=== PATIENT | female | born 1945 | race Caucasian/White ===

== ENCOUNTER → 2017-01-12 | Outpatient (CLI) | payer BC ==
[~2017-01-12] MED LIST: ATOR-24 PO; CEPH500C PO; FIBER CAPS PO; FLUO40CA8 PO; FLX10 PO; IBUP200C14 PO; LEVO100T7 PO; LOSA100T2 PO; MULT-506 PO; OMEP40CA PO; VITAMIN D PO
--- NOTE | 2017-01-12 13:35 | MAMMOGRAPHY REPORT ---
BILATERAL DIGITAL SCREENING MAMMOGRAM WITH CAD: 01/12/2017 CLINICAL HISTORY: Routine screening. Patient has no complaints. TECHNIQUE: Current study was also evaluated with a Computer Aided Detection (CAD) system. Bilatera l CC and MLO views were obtained. COMPARISON: Comparison is made to exams dated: 01/07/2016 mammogram, 08/24/2013 mammogram, 01/06/2015 mammogram, 08/23/2012 mammogram, 09/06/2011 mammogram, and 08/18/2010 mammogram - [facility]. BREAST COMPOSITION: There are scattered areas of fibroglandular density in both breasts. FINDINGS: No suspicious masses, calcifications, or areas of architectural distortion are noted in e ither breast. There has been no significant interval change compared to prior exams. There are stab le postsurgical changes from bilateral reduction mammoplasty. Coarse benign dystrophic calcificatio ns are again noted within the right upper outer quadrant. IMPRESSION: ACR BI-RADS CATEGORY 2: BENIGN There is no mammographic evidence of malignancy. A 1 year screening mammogram is recommended. The p atient will receive written notification of the results. Approximately 10% of breast cancers are not detected with mammography. A negative mammographic repor t should not delay biopsy if a clinically suggestive mass is present. Crystal Chaudhari M.D. ah/:01/12/2017 11:49:41 Lab Engineer: Juvencio GUTIERREZ(R)(M), [facility] letter sent: Normal 1/2 BI-RADS Code: ACR BI-RADS Category 2: Benign
== END | disposition home or self-care (01) ==
LOC: C.MAMM 11:09
PROVIDERS: ATTEND Obstetrics & Gynecology
DX: Z12.31 Encounter for screening mammogram for malignant neoplasm of breast (principal)

== ENCOUNTER → 2017-02-11 | Outpatient (CLI) | payer BC ==
[2017-02-11 16:37] LABS: BASO % 0.5 %; BASO ABS # 0.04 K/uL (0-0.2); COMPLETE YES; EOS % 2.5 %; HEMATOCRIT 43.8 % (37-47); IG% 0.5 %; LYMPH ABS # 2.03 K/uL (1.2-3.4); MEAN CELL VOLUME 94.6 fL (80-100); MEAN CORPUSCULAR HEMOGLOBIN 31.3 pg (25-34); MEAN CORPUSCULAR HGB CONC 33.1 g/dl (32-36); MEAN PLATELET VOLUME 10.4 fL (7.4-10.4); NEUT % 64.5 %; PLATELET COUNT 304 K/uL (130-400); RED BLOOD COUNT 4.63 M/uL (4.2-5.4); WHITE BLOOD COUNT 8.82 K/uL (4.8-10.8)
[2017-02-11 16:44] LABS: BLOOD UREA NITROGEN 19 mg/dl (7-18); BUN/CREATININE RATIO 22.4 (10-20); CALCIUM 9.4 mg/dl (8.5-10.1); CARBON DIOXIDE 30 mmol/L (21-32); CHLORIDE 104 mmol/L (98-107); CREATININE 0.83 mg/dl (0.60-1.20); GLUCOSE 102 mg/dl (70-99); POTASSIUM 3.6 mmol/L (3.5-5.1); SODIUM 142 mmol/L (136-145)
[2017-02-12 05:39] LABS: ESTIMATED AVERAGE GLUCOSE 123 mg/dl; HA1C FLAG Normal (Normal)
--- NOTE | 2017-02-17 09:12 | CODING QUERY MEDICAL NECESSITY ---
SUPPORTING DIAGNOSIS NEEDED A supporting diagnosis is required for the test/procedure performed on this patient in order for us to be reimbursed by the patient's insurance. Please provide a supporting diagnosis for the following test/procedure listed below next to the test name along with your signature. *If there is no additional diagnosis for this patient that would support the following test/procedure please document that below next to the test/procedure. Test(s)/Procedure(s) that require a supporting diagnosis: DOS 02/11 * Hba1c DIAGNOSIS: Provider Signature: Date: Thank you Yoselin De Oliveira Health Information Management Once completed, please kindly fax back to [phone] For questions please call [phone]
== END | disposition home or self-care (01) ==
LOC: C.LABBC 12:29
PROVIDERS: ATTEND Internal Medicine Geriatric Medicine
DX: I10 Essential (primary) hypertension (principal); E03.9 Hypothyroidism, unspecified; G47.33 Obstructive sleep apnea (adult) (pediatric); E55.9 Vitamin D deficiency, unspecified; Z68.41 Body mass index [BMI] 40.0-44.9, adult

== ENCOUNTER → 2017-02-14 | Outpatient (CLI) | payer BC ==
--- NOTE | 2017-02-14 09:45 | DIAGNOSTIC IMAGING REPORT ---
CERVICAL SPINE 2 OR 3 VIEWS CLINICAL HISTORY: Neck pain. No known injury. COMPARISON STUDY: MRI of the cervical spine March 11, 2014. FINDINGS: Reversal of the normal cervical lordosis is again noted. There is slight retrolisthesis of C5 on C6. This is unchanged. There is slight anterolisthesis of C4 on C5. Marked disc space narrowing with osteophytosis is noted at C5-C6 and C6-C7. No fracture or suspicious lesion is present. There is moderate to severe multilevel facet arthrosis. IMPRESSION: 1. Moderate to severe multilevel degenerative disc disease and facet arthrosis, most pronounced at C5-C6 and C6-C7. 2. Reversal of the normal cervical lordosis. Unchanged alignment of the cervical spine. 3. No fracture identified. 4. Degenerative changes at the C1-C2 articulation. Electronically signed by: Garret Corey M.D. 02/14/2017 9:43 AM Dictated Date/Time: 02/14/2017 9:42 AM
== END | disposition home or self-care (01) ==
LOC: C.RADBC 09:13
PROVIDERS: ATTEND Internal Medicine Geriatric Medicine
DX: M54.2 Cervicalgia (principal); M50.322 Other cervical disc degeneration at C5-C6 level; M50.323 Other cervical disc degeneration at C6-C7 level; M53.82 Other specified dorsopathies, cervical region; M47.812 Spondylosis without myelopathy or radiculopathy, cervical region

== ENCOUNTER → 2017-09-28 | Outpatient (CLI) | payer BC | END | disposition home or self-care (01) | LOC: C.LABSPEC 17:03 | PROVIDERS: ATTEND Urology | DX: N39.41 Urge incontinence (principal); R35.0 Frequency of micturition ==

== ENCOUNTER → 2017-11-28 | Outpatient (CLI) | payer BC | END | disposition home or self-care (01) | LOC: C.LAB 16:46 | PROVIDERS: ATTEND Nurse Practitioner Adult Health | DX: R39.15 Urgency of urination (principal); R35.0 Frequency of micturition; N39.0 Urinary tract infection, site not specified ==

== ENCOUNTER 2018-02-07 15:18 | Emergency (ER) | payer BC ==
[~2018-02-07] VITALS: Ht 167.6 cm; Wt 115.0 kg
[2018-02-07 15:25] VITALS: TEMP 36.8; Ht 167.6 cm; Wt 115.0 kg
[2018-02-07] MEDS ORDERED: LOSA100T33 PO (16:15)
[2018-02-07] MEDS ORDERED: OMEP40CA41 PO (16:15)
[2018-02-07] MEDS ORDERED: CALC625T35 PO (16:15)
[2018-02-07] MEDS ORDERED: CHOL100010 PO (16:15)
[2018-02-07] MEDS ORDERED: MIRA1TAB3 PO (16:15)
[2018-02-07] MEDS ORDERED: ONDANSETRON INJ 2 MG/ML 2 ML VIAL IV STA (16:16)
[2018-02-07] MEDS ORDERED: ACETAMINOPHEN 500 MG TAB PO STA (16:16)
[2018-02-07] MEDS ORDERED: METHYLPREDNISOLONE 125 MG VIAL IV STA (16:16)
[2018-02-07] MEDS ORDERED: MoRPHine SULFATE 10 MG/ML CARP/VIAL IV STA (16:16)
--- NOTE | 2018-02-07 16:24 | EMERGENCY ROOM VISIT NOTE ---
History Report prepared by Jalen: Corona Sandoval Under the Supervision of: Dr. Jon Michelle M.D. First contact with patient: 16:03 Chief Complaint: PAIN (GENERALIZED) Stated Complaint: BLACKED OUT, CANT WALK History of Present Illness The patient is a 72 year old white female with a past medical history of arthritis who presents to the ED with a cc of constant lower back pain beginning three days ago. She rates her pain as a 10/10 in severity. She reports that her pain is worsened with movement and coughing. The patient states that she was in the back of the car for 6 hours three days ago. She reports during her trip, she was in the back seat with her knees against the m48/m60 tank driver seat. The patient states that after the car ride, she developed back pain that has been constant. She reports that she has not been able to stand up straight or get out of bed without pain. The patient states that she took Advil and Oxycodone for her symptoms without any relief. Negative sprain, strain, heavy lifting, a history of back pain, back surgeries. Of note patient denied blacking out. No syncope, CP, SOB. Source of History: patient Onset: three days ago Position: back (lower) Symptom Intensity: 10/10 Timing: constant Modifying Factors (Worsening): movement, other (coughing) Modifying Factors (Relieving): other (Advil, Oxycodone) Associated Symptoms: + cough Note: Negative sprain, strain, heavy lifting, a history of back pain, back surgeries. Review of Systems See HPI for pertinent positives and negatives. A total of ten systems were reviewed and were otherwise negative. Past Medical & Surgical Medical Problems: (1) Arthritis (2) HTN (hypertension) Surgical Problems: (1) History of knee replacement Family History Diabetes mellitus Heart disease Hypertension Social History Smoking Status: Never Smoker Drug Use: none Marital Status: Housing Status: lives with significant other Occupation Status: retired Current/Historical Medications Scheduled Atorvastatin (Lipitor), 40 MG PO QPM Calcium Polycarbophil (Fiber), 625 MG PO DAILY Cholecalciferol (Vitamin D), 1,000 UNITS PO DAILY Fluoxetine (Prozac), 40 MG PO QAM Hctz/Losartan (Hyzaar 12.5MG/100MG), 1 TAB PO DAILY Ibuprofen (Advil), 400 MG PO DAILY Levothyroxine Sodium (Levothyroxine Sodium), 100 MCG PO QAM Methylprednisolone (Medrol Dosepak), 1 PKT PO DAILY Mirabegron (Myrbetriq Er), 50 MG PO DAILY Multivitamin (Multivitamin), 1 TAB PO QAM Omeprazole (Prilosec), 40 MG PO DAILY Allergies Coded Allergies: Erythromycin (Verified Allergy, Intermediate, GASTRIC INFLAMATION, 02/07/18 ) Rofecoxib (Verified Allergy, Intermediate, GASTRIC INFLAMATION, 02/07/18) Physical Exam Vital Signs Date Time Temp Pulse Resp B/P (MAP) Pulse Ox O2 Delivery O2 Flow Rate FiO2 02/07/18 18:26 78 16 129/89 91 Room Air 02/07/18 17:11 77 18 129/89 95 Room Air 02/07/18 15:25 36.8 91 18 144/87 93 Room Air Physical Exam GENERAL: Obese, awake, alert, well-appearing, NAD HENT: Normocephalic, atraumatic. EYES: Normal conjunctiva. Sclera non-icteric. NECK: Supple. No nuchal rigidity. FROM. RESPIRATORY: CTAB, no rhonchi, wheezing, crackles CARDIAC: RRR, no MRG ABDOMEN: Soft, NTND, BS+ MSK: No chest wall TTP, no LE edema, mild reproducible paraspinal and midline lumbar TTP, No overlying skin changes, Positive straight leg raise, Positive Ab on right. No pain with external rotation. NEURO: GCS 15, CN 2-12 intact, moves all 4s on command, No saddle anesthesia, NVI bilateral lower extremities. SKIN: No rash or jaundice noted. Medical Decision & Procedures ER Provider Diagnostic Interpretation: X-ray: Per my interpretation, radiologist review. L-SPINE MIN 4 VIEWS ROUTINE CLINICAL HISTORY: Back pain COMPARISON STUDY: No previous studies for comparison. FINDINGS: No acute fractures are visualized. There is minimal retrolisthesis of L3 on L4. There is marked disc space narrowing at the L3-4 and L2-3 levels. There is scattered stool within the colon. There is mild gaseous prominence of the transverse colon. IMPRESSION: 1. No acute fractures 2. Moderately advanced degenerative changes at the L2-3 and L3-4 levels. 3. Minor retrolisthesis of L3 on L4 Electronically signed by: South Coats M.D. 02/07/2018 5:45 PM Dictated Date/Time: 02/07/2018 5:43 PM Laboratory Results 02/07/18 16:45 Red Blood Count 4.29, Mean Corpuscular Volume 90.2, Mean Corpuscular Hemoglobin 30.8, Mean Corpuscular Hemoglobin Concent 34.1, Mean Platelet Volume 9.6, Neutrophils (%) (Auto) 68.3, Lymphocytes (%) (Auto) 16.1, Monocytes (%) (Auto) 13.2, Eosinophils (%) (Auto) 1.8, Basophils (%) (Auto) 0.4, Neutrophils # (Auto ) 6.23, Lymphocytes # (Auto) 1.47, Monocytes # (Auto) 1.20, Eosinophils # (Auto ) 0.16, Basophils # (Auto) 0.04 02/07/18 16:45 Test 02/07/18 16:45 White Blood Count 9.12 K/uL (4.8-10.8) Red Blood Count 4.29 M/uL (4.2-5.4) Hemoglobin 13.2 g/dL (12.0-16.0) Hematocrit 38.7 % (37-47) Mean Corpuscular Volume 90.2 fL (80-100) Mean Corpuscular Hemoglobin 30.8 pg (25-34) Mean Corpuscular Hemoglobin Concent 34.1 g/dl (32-36) Platelet Count 267 K/uL (130-400) Mean Platelet Volume 9.6 fL (7.4-10.4) Neutrophils (%) (Auto) 68.3 % Lymphocytes (%) (Auto) 16.1 % Monocytes (%) (Auto) 13.2 % Eosinophils (%) (Auto) 1.8 % Basophils (%) (Auto) 0.4 % Neutrophils # (Auto) 6.23 K/uL (1.4-6.5) Lymphocytes # (Auto) 1.47 K/uL (1.2-3.4) Monocytes # (Auto) 1.20 K/uL (0.11-0.59) Eosinophils # (Auto) 0.16 K/uL (0-0.5) Basophils # (Auto) 0.04 K/uL (0-0.2) RDW Standard Deviation 48.7 fL (36.4-46.3) RDW Coefficient of Variation 14.8 % (11.5-14.5) Immature Granulocyte % (Auto) 0.2 % Immature Granulocyte # (Auto) 0.02 K/uL (0.00-0.02) Prothrombin Time 10.3 SECONDS (9.0-12.0) Prothromb Time International Ratio 1.0 (0.9-1.1) Activated Partial Thromboplast Time 27.5 SECONDS (21.0-31.0) Partial Thromboplastin Ratio 1.1 Anion Gap 5.0 mmol/L (3-11) Est Creatinine Clear Calc Drug Dose 96.3 ml/min Estimated GFR () 101.1 Estimated GFR (Non- 87.2 BUN/Creatinine Ratio 21.2 (10-20) Calcium Level 9.0 mg/dl (8.5-10.1) Laboratory results reviewed by me Medications Administered Medications (Trade) Dose Ordered Sig/Sherly Route Start Time Stop Time Status Last Admin Dose Admin Ondansetron HCl (Zofran Inj) 4 mg NOW STAT IV 02/07/18 16:16 02/07/18 16:19 DC 02/07/18 17:01 4 MG Morphine Sulfate (MoRPHine SULFATE INJ) 8 mg NOW STAT IV 02/07/18 16:16 02/07/18 16:19 DC 02/07/18 17:02 8 MG Acetaminophen (Tylenol Tab) 1,000 mg NOW STAT PO 02/07/18 16:16 02/07/18 16:19 DC 02/07/18 17:01 1,000 MG Methylprednisolone Sodium Succinate (Solu-Medrol IV) 125 mg NOW STAT IV 02/07/18 16:16 02/07/18 16:19 DC 02/07/18 17:02 125 MG Tramadol HCl (Ultram Tab) 25 mg NOW STAT PO 02/07/18 18:26 02/07/18 18:27 DC 02/07/18 18:26 25 MG ECG Per My Interpretation Indication: back/shoulder pain Rate (beats per minute): 85 Rhythm: normal sinus Findings: Q waves (Inferior), other (Normal intervals, Normal axis, No other STS changes or TWI) Comparison ECG Date: 02/23/06 Change: no significant change Change: Q wave is old ED Course 1613: The patient was evaluated in room B04B. A complete history and physical exam was performed. 4: I reevaluated the patient. Discussed results and discharge instructions: She verbalized understanding and agreement. The patient is ready for discharge. Medical Decision Prior records/ancillary studies reviewed. Triage Nursing notes reviewed. The patient is a 72 year old white female with a past medical history of arthritis who presents to the ED with a cc of constant lower back pain beginning three days ago. Differential diagnosis: Etiologies such as musculoskeletal, disc herniation, fracture, aortic disease, metastatic disease, cord compression, discitis, infection, renal colic, gastrointestinal, acute exacerbation of chronic back pain, sciatica, cauda equina, as well as others were entertained. Triage note states "blacked out" but patient did not complain that she had passed out or syncopized. No CP, SOB. Patient was seen and evaluated the bedside. Patient was complaining of some low back pain. Patient states that was fairly constant. Patient has taken some medication at home but without much relief. On exam the patient does have some lower back discomfort. Patient has no saddle anesthesia or lower extremity weakness. Do not believe that she has cauda equina. Patient denies any bowel or bladder incontinence. Patient did have plain films completed along with medication for symptomatic improvement. Patient's blood work is unremarkable. Plain films do show some retrolisthesis of the lumbar spine. No acute fracture. I did discuss this with the patient and explained in a stepwise fashion how we can improve her pain with medications and more conservative treatment. Patient should also follow-up with her PCP in order to obtain possible PT and OT, cloth painter, and/or possible back specialist. Patient was agreeable to this plan of care. Patient was given strict follow-up, discharge, and return precautions. All questions were answered. Patient was deemed suitable for outpatient follow-up at this time. Patient agreed with the plan of care and was safely discharged home. Medication Reconcilliation Current Medication List: was personally reviewed by me Blood Pressure Screening Patient's blood pressure: Elevated blood pressure Blood pressure disposition: Elevated BP felt to be situational Impression Primary Impression: Back pain Scribe Attestation The scribe's documentation has been prepared under my direction and personally reviewed by me in its entirety. I confirm that the note above accurately reflects all work, treatment, procedures, and medical decision making performed by me. Departure Information Dispostion Home / Self-Care Prescriptions Methylprednisolone (MEDROL DOSEPAK) 4 Mg Sunil 1 PKT PO DAILY, #1 PKT Prov: Jon Michelle M.D. 02/07/18 Referrals No Doctor, Assigned (PCP) Roney Johnson M.D. Patient Instructions Back Pain - [facility], Back Pain Relieve, Low Back Pain Self Care, My [facility] Additional Instructions Please return to the emergency department if you have worsening or recurrent symptoms not amenable to at-home treatment. Please call for a follow-up appointment with her primary care physician. Please take your medications as prescribed. If you have other concerns and/or complaints please feel free to also call your primary care physician's office or return the ED for further evaluation, management, and treatment. You received narcotic or benzodiazepene medication while in the emergency room today. This is an addictive medication that may cause drowziness as well as constipation. Do not drive, operate heavy machinery, or drink alcohol under the influence of this medication. You may take tylenol 1000 mg every 6 hours as needed for pain. If you still have discomfort consider taking the tramadol. If you are still in pain he may try taking the oxycodone. Please be advised that both of the 2 aforementioned medications may make you sleepy. The may also cause respiratory depression. Please do not use if you require full attention. You may consider a topical like BenGay or icy hot. Also consider moist heat and /or ice. Take your medications as prescribed. If taking an antibiotic consider taking a probiotic and/or eating yogurt, but at the least, please take with food as it can cause upset stomach. You have been examined and treated today on an emergency basis only. This is not a substitute for, or an effort to provide, complete comprehensive medical care. It is impossible to recognize and treat all injuries or illnesses in a single emergency department visit. It is therefore important that you follow up closely with [facility], your PCP, and/or your specialist(s). Call as soon as possible for an appointment. Thank you for your time and consideration. I look forward to speaking with you again soon. Please don't hesitate to call us if you have any questions. Problem Qualifiers Primary Impression: Back pain Back pain location: low back pain Chronicity: acute Back pain laterality: bilateral Sciatica presence: with sciatica Sciatica laterality: sciatica of right side Qualified Codes: M54.41 - Lumbago with sciatica, right side
[2018-02-07 16:59] LABS: BASO % 0.4 %; BASO ABS # 0.04 K/uL (0-0.2); EOS % 1.8 %; EOS ABS # 0.16 K/uL (0-0.5); HEMATOCRIT 38.7 % (37-47); HEMOGLOBIN 13.2 g/dL (12.0-16.0); IG# 0.02 K/uL (0.00-0.02); LYMPH % 16.1 %; LYMPH ABS # 1.47 K/uL (1.2-3.4); MEAN CELL VOLUME 90.2 fL (80-100); MEAN CORPUSCULAR HEMOGLOBIN 30.8 pg (25-34); MEAN CORPUSCULAR HGB CONC 34.1 g/dl (32-36); MEAN PLATELET VOLUME 9.6 fL (7.4-10.4); MONO % 13.2 %; NEUT % 68.3 %; NEUT ABS # 6.23 K/uL (1.4-6.5); PLATELET COUNT 267 K/uL (130-400); RED CELL DISTRIBUTION WIDTH CV 14.8 % (11.5-14.5); RED CELL DISTRIBUTION WIDTH SD 48.7 fL (36.4-46.3); WHITE BLOOD COUNT 9.12 K/uL (4.8-10.8)
[2018-02-07 17:07] LABS: PTT PATIENT 27.5 SECONDS (21.0-31.0)
[2018-02-07 17:16] LABS: CREATININE 0.67 mg/dl (0.60-1.20); POTASSIUM 3.8 mmol/L (3.5-5.1)
--- NOTE | 2018-02-07 17:46 | DIAGNOSTIC IMAGING REPORT ---
L-SPINE MIN 4 VIEWS ROUTINE CLINICAL HISTORY: Back pain COMPARISON STUDY: No previous studies for comparison. FINDINGS: No acute fractures are visualized. There is minimal retrolisthesis of L3 on L4. There is marked disc space narrowing at the L3-4 and L2-3 levels. There is scattered stool within the colon. There is mild gaseous prominence of the transverse colon. IMPRESSION: 1. No acute fractures 2. Moderately advanced degenerative changes at the L2-3 and L3-4 levels. 3. Minor retrolisthesis of L3 on L4 Electronically signed by: South Coats M.D. 02/07/2018 5:45 PM Dictated Date/Time: 02/07/2018 5:43 PM
[2018-02-07] MEDS ORDERED: METH4PAK PO (18:25)
[2018-02-07 18:26] VITALS: BP 129/89; PULSE 78; O2SAT 91
[2018-02-07] MEDS ORDERED: TRAMADOL HCL 50 MG TAB PO STA (18:26)
--- NOTE | 2018-02-07 18:40 | Pharmacy Progress Note ---
ED Pharmacist Progress Note Date of Service: Feb 07, 2018. Received call from [facility] pharmacy requesting clarification on methylprednisolone prescription. Authorized dispensing methylprednisolone dose pack (4 mg tablet #21 tabs) per package instructions: 6 tabs day 1 5 tabs day 2 4 tabs day 3 3 tabs day 4 2 tabs day 5 1 tab day [address] Michelle.
== END 2018-02-07 18:54 | disposition home or self-care (01) ==
LOC: C.EDB 15:20
DX: M54.41 Lumbago with sciatica, right side (principal); M19.90 Unspecified osteoarthritis, unspecified site; I10 Essential (primary) hypertension; Z83.3 Family history of diabetes mellitus; Z82.49 Family history of ischemic heart disease and other diseases of the circulatory system; Z88.8 Allergy status to other drugs, medicaments and biological substances

== ENCOUNTER → 2018-02-28 | Outpatient (CLI) | payer BC ==
[~2018-02-28] MED LIST changes: +CALC625T35 PO; -CEPH500C PO; +CHOL100010 PO; -FIBER CAPS PO; -FLX10 PO; -LOSA100T2 PO; +LOSA100T33 PO; +MIRA1TAB3 PO; -OMEP40CA PO; +OMEP40CA41 PO; -VITAMIN D PO
[2018-02-28 17:04] LABS: ALBUMIN 3.4 gm/dl (3.4-5.0); ALT/SGPT 34 U/L (12-78); BLOOD UREA NITROGEN 29 mg/dl (7-18); CALCIUM 8.5 mg/dl (8.5-10.1); CARBON DIOXIDE 28 mmol/L (21-32); CHOLESTEROL 243 mg/dl (0-200); CREATININE 0.86 mg/dl (0.60-1.20); GLUCOSE 112 mg/dl (70-99); POTASSIUM 3.6 mmol/L (3.5-5.1); SODIUM 136 mmol/L (136-145)
[2018-02-28 17:14] LABS: ALKALINE PHOSPHATASE 107 U/L (45-117); AST/SGOT 15 U/L (15-37); LDL CHOLESTEROL CALCULATED 141 mg/dl; TOTAL PROTEIN 6.6 gm/dl (6.4-8.2)
== END | disposition home or self-care (01) ==
LOC: C.LABBC 12:29
PROVIDERS: ATTEND Internal Medicine Geriatric Medicine
DX: I10 Essential (primary) hypertension (principal); E03.9 Hypothyroidism, unspecified; M19.90 Unspecified osteoarthritis, unspecified site; G47.33 Obstructive sleep apnea (adult) (pediatric); E78.5 Hyperlipidemia, unspecified; R51 Headache

== ENCOUNTER 2019-05-05 07:40 | Inpatient (IN) ==
[2019-05-05] MEDS ORDERED: SODIUM CHLORIDE 0.9% 1000ML 250 ML IV ONE (07:59)
--- NOTE | 2019-05-05 07:59 | Emergency Department Note ---
Entered by Petra Taveras acting as a scribe for Ivan Story MD History of Present Illness General Chief complaint: Fall Time Seen by Provider: 05/05/19 07:42 Source: patient and EMS Mode of arrival: EMS History of Present Illness Onset (ago): hour(s) (last night) Location: head Pain Consistency: + other (episode) Quality: + other (fall) Associated symptoms: + denies other symptoms (loss of consciousness, numbness in her extremities, chest pain, or neck pain) and + other (weakness, headache, dizziness, nausea, pain in right shoulder, disorientation) The patient is a 73 year old female that is presenting to the Emergency Room with complaints of an episode of a fall that occurred in the middle of the night. The patient states that she is unsure what time she fell or why she fell. She notes that it was dark when she fell. She notes that feels generally weak and dizzy. She reports an associated mild headache. She states that she is currently feeling nauseous. She denies any recent illnesses. She denies any loss of consciousness, numbness in her extremities, chest pain, or neck pain. The patient reports that she has pain in her right shoulder at baseline. She is able to state the day of the week, her location, and her name on exam. The patient is unsure of her birthday or the current year. She denies any recent illnesses, stating that she has been feeling well lately. The patient states that she falls frequently but she notes that she is unsure of the cause. EMS notes that the patient has complained of nausea and dizziness for the past several days at her personal care facility, [facility]. EMS states that the patient was found on the floor and notes that it is unknown how long she laid on the ground before being found. EMS reports that the patient is unable to state her birthday or where she was en route to the Emergency Room. EMS notes that the patient is on Plavix. EMS reports that they are unsure if she is oriented at baseline or if this symptom is of new onset. Home Medications Home Medications Medication Instructions Recorded Confirmed Type cholecalciferol (vitamin D3) 400 unit PO DAILY 08/06/18 05/05/19 History [Vitamin D3] levothyroxine [Synthroid] 100 mcg PO DAILY 08/06/18 05/05/19 History losartan [Cozaar] 50 mg PO DAILY 08/06/18 05/05/19 History multivitamin 1 tab PO QAM 08/06/18 05/05/19 History psyllium husk [Fiber-Caps 4 cap PO DAILY 08/06/18 05/05/19 History (psyllium husk)] vitamin B complex 1 tab PO DAILY 08/06/18 05/05/19 History clopidogrel 75 mg PO QAM #30 tab 08/20/18 05/05/19 Rx ranitidine HCl 150 mg PO HS #30 cap 08/20/18 05/05/19 Rx acetaminophen [Tylenol Extra 500 mg PO Q4H PRN 05/05/19 05/05/19 History Strength] allopurinol 300 mg PO DAILY 05/05/19 05/05/19 History atorvastatin 40 mg PO DAILY 05/05/19 05/05/19 History docusate sodium 100 mg PO DAILY 05/05/19 05/05/19 History fluoxetine 20 mg PO DAILY 05/05/19 05/05/19 History methocarbamol 500 mg PO TID PRN 05/05/19 05/05/19 History mirabegron [Myrbetriq] 50 mg PO DAILY 05/05/19 05/05/19 History polyethylene glycol 3350 17 g PO DAILY PRN 05/05/19 05/05/19 History sennosides-docusate sodium 1 tab PO DAILYBL PRN 05/05/19 05/05/19 History [Senna-S] sulfamethoxazole-trimethoprim 1 tab PO BID 05/05/19 05/05/19 History Allergies Allergy/AdvReac Type Severity Reaction Status Date / Time erythromycin base Allergy Intermediate GASTRIC Verified 05/05/19 07:59 INFLAMATION rofecoxib Allergy Intermediate GASTRIC Verified 05/05/19 07:59 INFLAMATION Past Med/Surg History Medical History Arthritis HTN (hypertension) Constipation Depression GERD (gastroesophageal reflux disease) H/O: hysterectomy Hypothyroidism Stroke Surgical History History of arthroplasty of left ankle History of arthroplasty of right ankle Status post breast reduction Family History Other Family history non-contributory Social History Preferred Language: [place] Leone[place] Communication Ability: Effective 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 and A total of 10 systems reviewed and were otherwise negative Physical Exam Vital Signs Vital Signs - 24 hr 05/05/19 08:05 05/05/19 09:00 05/05/19 09:39 Temperature 36.6 C Temperature Source Oral Sepsis Recent Fever Within 48 Hours No Sepsis New/Unexplained Change in Mental Status No Sepsis Action Taken by Nursing No Action Required Pulse Rate 78 Pulse Rate [Apical] 74 79 Pulse Rhythm Regular Pulse Rhythm [Apical] Regular Regular Pulse Strength Normal Pulse Strength [Apical] Normal Normal Respiratory Rate 20 19 19 Respiratory Effort / Characteristics Non-Labored Spontaneous Non-Labored Spontaneous Non-Labored Spontaneous Respiratory Depth Normal Normal Normal Respiratory Pattern Regular Regular Regular Blood Pressure 132/84 Blood Pressure [Right Arm] 135/70 164/75 H Blood Pressure Mean 100 Blood Pressure Mean [Right Arm] 91 104 Blood Pressure Position [Right Arm] Pulse Oximetry 99 95 99 Oxygen Delivery Method Room Air Room Air Room Air 05/05/19 10:45 05/05/19 11:17 05/05/19 11:56 Temperature Temperature Source Sepsis Recent Fever Within 48 Hours Sepsis New/Unexplained Change in Mental Status Sepsis Action Taken by Nursing Pulse Rate Pulse Rate [Apical] 84 84 Pulse Rhythm Pulse Rhythm [Apical] Regular Pulse Strength Pulse Strength [Apical] Normal Respiratory Rate 17 Respiratory Effort / Characteristics Non-Labored Spontaneous Non-Labored Spontaneous Respiratory Depth Normal Respiratory Pattern Regular Regular Blood Pressure Blood Pressure [Right Arm] 159/77 H 152/86 H Blood Pressure Mean Blood Pressure Mean [Right Arm] 104 108 Blood Pressure Position [Right Arm] Lying Pulse Oximetry 93 Oxygen Delivery Method Room Air Room Air General: Non-ill appearing oldere female in no acute distress. Alert to person and place but not date. HEENT: Normal cephalic atraumatic. Pupils are equal round and reactive to light. bruising on right side of forehead with hematoma. Laceration on hairline on the right side. Extraocular movements are intact. Oropharynx is pink with moist mucous membranes. No swelling of the mouth lips or tongue. Neck: Supple with a midline trachea. No meningeal signs or stiffness, no JVD or bruits. No Stridor. Chest: Clear to auscultation bilaterally. No wheezes or rhonchi. No increased work of breathing. Heart: regular rate and rhythm. Abdomen: Soft nontender, nondistended without rebound guarding or rigidity. Extremities: No cyanosis clubbing or edema. No calf tenderness or asymmetry. Mild pain with movement of right shoulder but no obvious deformity or dislocation. Spine/Back. Non tender to palpation. No CVA tenderness Skin: Good turgor without rashes. Neurologic exam: Cranial nerves two through 12 are intact. Motor and sensation are intact and symmetrical throughout. Course 0743:The patient was evaluated in room B04B. A complete history and physical examination was performed. 0820: I checked on the patient who is resting comfortably and waiting to go to CT scan at this time. 0845: I revisited the patient who is currently in CT for her scan. 0957: I updated the patient on her current lab and imaging results. She is resting comfortably at this time. 1000: I discussed the patients case with STEVE Rene, who will evaluate the patient for further management and care. 1010: Upon reevaluation, the patient is resting comfortably. I discussed laboratory and radiographic results with the patient. She verbalized agreement of the treatment plan. The patient will be evaluated for further management and care. Consultations Consultation #1: I discussed the patients case with STEVE Rene, who will evaluate the patient for further management and care. Time: 10:00 Administered Medications Discontinued Medications Diphtheria/Pertussis/Tetanus Vacc (Adacel) 0.5 ml IM .ONCE ONE Stop: 05/05/19 09:32 Last Admin: 05/05/19 09:35 Dose: 0.5 ml Documented by: [id number] Sodium Chloride (Nss 1000ml) 250 mls @ 999 mls/hr IV .Q16M ONE Stop: 05/05/19 08:14 Last Infusion: 05/05/19 09:07 Dose: 0 mls/hr Documented by: [id number] Admin: 05/05/19 08:31 Dose: 999 mls/hr Documented by: [id number] Lidocaine (Let Gel 4%/1:100/0.5%) Confirm Administered Dose 1 ea EXT .STK-MED ONE Stop: 05/05/19 08:28 Last Admin: 05/05/19 08:31 Dose: 1 ea Documented by: [id number] Lidocaine (Let Gel 4%/1:100/0.5%) 1 ea EXT NOW STA Stop: 05/05/19 09:21 Last Admin: 05/05/19 09:25 Dose: Not Given Documented by: [id number] Lidocaine/Epinephrine (Buffered Xylocaine/Epinephrine 1%) 20 ml INFIL NOW ONE Stop: 05/05/19 09:32 Last Admin: 05/05/19 09:36 Dose: 20 ml Documented by: [id number] Medical Decision Making Differential Diagnosis Differential diagnosis includes: Etiologies such as trauma, intracranial process, CVA, cardiac disease, rhabdomyo lysis, infection, electrolyte or metabolic abnormalities as well as others were entertained. Medical Records Attestation: I reviewed the patient's medical records. Home Medications Current Medication List: was personally reviewed by me Laboratory Data Attestation: I reviewed the patient's lab results. Result diagrams: 05/05/19 08:19 05/05/19 08:19 Lab Results 05/05/19 05/05/19 05/05/19 Range/Units 08:19 08:19 09:19 WBC 8.46 (4.8-10.8) K/uL RBC 4.20 (4.2-5.4) M/uL Hgb 13.3 (12.0-16.0) g/dL Hct 37.4 (37-47) % MCV 89.0 (80-100) fL MCH 31.7 (25-34) pg MCHC 35.6 (32-36) g/dL RDW Std Deviation 50.3 H (36.4-46.3) fL RDW Coeff of Jovani 15.5 H (11.5-14.5) % Plt Count 234 (130-400) K/uL MPV 9.8 (7.4-10.4) fL Immature Gran % (Auto) 0.5 % Neut % (Auto) 91.3 % Lymph % (Auto) 3.3 % [place] % (Auto) 4.8 % Eos % (Auto) 0.0 % Baso % (Auto) 0.1 % Immature Gran # (Auto) 0.04 H (0.00-0.02) K/uL Neut # (Auto) 7.72 H (1.4-6.5) K/uL Lymph # (Auto) 0.28 L (1.2-3.4) K/uL [place] # (Auto) 0.41 (0.11-0.59) K/uL Eos # (Auto) 0.00 (0-0.5) K/uL Baso # (Auto) 0.01 (0-0.2) K/uL Sodium 134 L (136-145) mmol/L Potassium 3.4 L (3.5-5.1) mmol/L Chloride 100 (98-107) mmol/L Carbon Dioxide 23 (21-32) mmol/L Anion Gap 10.0 (3-11) BUN 13 (7-18) mg/dl Creatinine 0.85 (0.6-1.2) mg/dl Est Cr Clr Drug Dosing Not Reportable Est GFR ( Amer) 78.2 Est GFR (Non-Af Amer) 67.5 BUN/Creatinine Ratio 14.7 (10-20) Glucose 111 H (70-99) mg/dl Calcium 8.9 (8.5-10.1) mg/dl Total Bilirubin 0.7 (0.2-1) mg/dl AST 19 (15-37) U/L ALT 23 (12-78) U/L Alkaline Phosphatase 131 H (45-117) U/L Total Creatine Kinase 115 (26-192) U/L CK-MB (CK-2) 1.7 (0.5-3.6) ng/ml CK/CKMB % Calc 1.5 (0-3.0) Troponin I 0.054 H* (0-0.045) ng/ml Total Protein 6.5 (6.4-8.2) gm/dl Albumin 3.3 L (3.4-5.0) gm/dl Globulin 3.2 (2.5-4.0) gm/dl Albumin/Globulin Ratio 1.0 (0.9-2) TSH 0.738 (0.300-4.500) uIu/ml Urine Color Dark Yellow Urine Appearance Clear (Clear) Urine pH 6.5 (4.5-7.5) Ur Specific [place] 1.016 (1.000-1.030) Urine Protein Negative (Negative) Urine Glucose (UA) Negative (Negative) Urine Ketones Negative (Negative) Urine Blood Negative (Negative) Urine Nitrite Negative (Negative) Urine Bilirubin Negative (Negative) Urine Urobilinogen Negative (Negative) Ur Leukocyte Esterase 2+ H (Negative) Urine WBC (Auto) >30 H (0-5) /hpf Urine RBC (Auto) 0-4 (0-4) /hpf U Hyaline Cast (Auto) 5-10 H (0-5) /lpf U Epithel Cells (Auto) >30 H (0-5) /lpf Urine Bacteria (Auto) Negative (Negative) Ur Renal Epithelial Cell Not Reportable Imaging Data Radiologist's Impression: Radiology results as stated below per my review and the radiologist's interpretation: XR chest 1V portable CLINICAL HISTORY: 73 years-old Female presenting with weakness. TECHNIQUE: Portable upright AP view of the chest was obtained. COMPARISON: 08/18/2018. FINDINGS: Atherosclerosis of the aortic arch. Cardiac silhouette normal in size. Improved aeration at the left lung base. No focal opacity. No large effusion or pneumothorax. Degenerative changes of the thoracic spine. Degenerative changes of the glenohumeral joints. Upper abdomen normal. IMPRESSION: 1. No acute cardiopulmonary disease. Electronically signed by: Meño Perez M.D. 05/05/2019 8:37 AM XR shoulder RT min 2V routine CLINICAL HISTORY: 73 years-old Female presenting with Fall. right shoulder pain. TECHNIQUE: Internal rotation, external rotation, Grashey views of the right shoulder were obtained. COMPARISON: Chest x-ray from 08/18/2018. FINDINGS: Acromioclavicular and glenohumeral joints congruent. Advanced degenerative changes of the glenohumeral joint with prominent osteophytosis. Suspected loose body in the glenohumeral joint subjacent to the humeral head. No significant mireles bluxation of the humeral head. Underlying osteopenia may be present. No acute fracture or malalignment. Atherosclerosis of the aortic arch. Degenerative changes of the spine. Right lung grossly clear. IMPRESSION: 1. Advanced degenerative changes of the glenohumeral joint with less severe degenerative change at the AC joint. 2. No acute osseous injury. Electronically signed by: Meño Perez M.D. 05/05/2019 8:[address] cervical spine wo con CLINICAL HISTORY: 73 years-old Female presenting with trauma. TECHNIQUE: Multidetector CT of the cervical spine was performed without the use of intravenous contrast. IV contrast: None. One or more dose lowering techniques were used consistent with the principles of ALARA (as low as reasonably achievable), including automatic exposure control, mA or kV adjustment to individual patient size, and/or use of iterative reconstruction. COMPARISON: Correlation made to CTA of the neck from 08/06/2018. CT DOSE (mGy.cm): The estimated cumulative dose is 1063.35. 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 Slight kyphotic curvature centered at C5-6 with straightening of the remainder of the cervical spine. Trace anterolisthesis of C4 on C5 likely degenerative in etiology. Mild vertebral body height loss of C5 may be related to degenerative change and underlying osteopenia. Remaining vertebral bodies demonstrate normal height and alignment. Severe intervertebral disc height loss at C5-6 and moderate to severe height loss at C6-7. These levels also demonstrates the greatest degree of degenerative change with disc osteophyte complexes resulting in mild osseous spinal canal narrowing. Limited evaluation of the soft tissues of the spinal canal do not demonstrate soft tissue effacement. Degenerative changes at the atlantodental articulation. Irregular appearance of the C1-2 articulation on the left with associated sclerosis (series 501 image 20), most likely degenerative in etiology and unchanged from prior exam. Diffuse facet arthropathy. Osseous neural foraminal narrowing to varying degrees at nearly every level. No acute fracture or subluxation. Skull base grossly intact. Patchy groundglass opacity and mosaic attenuation at the upper lobes. Paraspinal musculature within normal limits. Atherosclerosis. IMPRESSION: 1. No acute osseous injury of the cervical spine. 2. Multilevel degenerative changes with multilevel osseous spinal canal and neural foraminal narrowing. 3. Changes at the lung apices may suggest small airways disease or less likely edema. Electronically signed by: Meño Perez M.D. 05/05/2019 9:[address] head/brain wo con CLINICAL HISTORY: 73 years-old Female presenting with new neurologic deficits, eval for trauma. TECHNIQUE: Multidetector CT imaging of the head was performed without the use of intravenous contrast. IV contrast: None. One or more dose lowering techniques were used consistent with the principles of ALARA (as low as reasonably achievable), including automatic exposure control, mA or kV adjustment to individual patient size, and/or use of iterative reconstruction. COMPARISON: 08/10/2018. CT DOSE (mGy.cm): The estimated cumulative dose is 1063.35 mGy.cm. 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 Proportional ventricular and sulcal prominence, likely age-related parenchymal volume loss. No hemorrhage. Periventricular and subcortical white matter hypoattenuation, nonspecific but likely indicative of chronic small vessel ischemic change. No acute territorial infarct. No mass effect or midline shift. No extra-axial fluid collection. Paranasal sinuses and mastoid air cells clear. Calvarium intact. Mild soft tissue swelling over the right frontal scalp. IMPRESSION: 1. Chronic small vessel ischemic change. No acute intracranial abnormality. 2. Minimal contusion in the right frontal scalp. No subjacent osseous injury. Electronically signed by: Meño Perez M.D. 05/05/2019 9:08 AM ECG Data Attestation: I personally reviewed and interpreted this ECG as follows: Indication: weakness Rate (beats per minute): 79 Rhythm: normal sinus Findings: + other (poor baseline); no PAC, no PVC, no ST depression, no ST elevation, no acute ischemic change and no ectopy Comparison ECG Date: from (08/06/2018) Change: no significant change Blood Pressure Blood Pressure Findings: Normal blood pressure MDM Narrative This patient comes in as described above. She was placed in room B3. She is here for treatment and evaluation of a fall. It is unknown how long she was on the ground and she does seem somewhat confused but is alert to person and place. I am not sure what her baseline is. Other than that, she has no focal neurologic exam. IV access was established and multiple blood testing was obtained. I did do a CAT scan of her head neck as she did hit her head as a contusion/laceration. Let gel was applied. Multiple blood testing was obtained. She was reassessed frequently. Her laceration was repaired by Marina Haro, my PA. CAT scan of her head and neck were unremarkable. EKG does not suggest acute coronary syndrome or arrhythmia. She has no acute electroltye or metabolic abnormalities. Her troponin is mildly elevated. In light of an unknown episode of what happened, she could have had a syncopal episode also I am not sure what her baseline mental status normally is. she seems mildly confused although this could be chronic. I do think she needs to be observed for further treatment and evaluations given her fall/syncope and elevated troponin. I have consulted the [facility] hospitalist to see in the ER for these measures. She was also updating her tetanus booster with Adacel IM Impression & Plan Altered mental status, Head injury, Laceration of scalp Discharge Plan Visit Data *Final* Discharge Date/Time: 05/05/19 12:34 Chief Complaint: Fall Other Complaint: Laceration/Cut (Suture/Dermabond) ED Provider: Ivan Story Discharge Problem: Altered mental status, Head injury, Laceration of scalp Patient Disposition: Admitted As Inpatient Discharge Instructions Interventions: ED Discharge Assessment Last Done: 05/05/19 12:34 Discharge Problem: Altered mental status Qualifiers: Altered mental status type: unspecified Qualified Code(s): R41.82 - Altered mental status, unspecified Head injury Qualifiers: Encounter type: initial encounter Qualified Code(s): S09.90XA - Unspecified injury of head, initial encounter Laceration of scalp Qualifiers: Encounter type: initial encounter Qualified Code(s): S01.01XA - Laceration without foreign body of scalp, initial encounter The scribe's documentation has been prepared under my direction and personally reviewed by me in its entirety. I confirm that the note above accurately reflects all work, treatment, procedures, and medical decision making performed by me.
[2019-05-05] MEDS ORDERED: LIDOCAINE/EPINEPH/TETRACAINE 1 EA SYR EXT ONE (08:27)
[2019-05-05 08:34] LABS: Basophils # (auto) 0.01 K/uL (0-0.2); Basophils % (auto) 0.1 %; Hematocrit (blood only) 37.4 % (37-47); Hemoglobin 13.3 g/dL (12.0-16.0); Immature Granulocytes # (auto) 0.04 K/uL (0.00-0.02); Immature Granulocytes % (auto) 0.5 %; Lymphocytes # (auto) 0.28 K/uL (1.2-3.4); Lymphocytes % (auto) 3.3 %; Mean Corpuscular Hgb Conc 35.6 g/dL (32-36); Mean Platelet Volume 9.8 fL (7.4-10.4); Monocytes # (auto) 0.41 K/uL (0.11-0.59); Monocytes % (auto) 4.8 %; Neutrophils # (auto) 7.72 K/uL (1.4-6.5); Neutrophils % (auto) 91.3 %; Platelet Count 234 K/uL (130-400); RDW Coefficient of Variation 15.5 % (11.5-14.5); RDW Standard Deviation 50.3 fL (36.4-46.3); White Blood Count 8.46 K/uL (4.8-10.8)
--- NOTE | 2019-05-05 08:39 | XRay Report ---
XR shoulder RT min 2V routine CLINICAL HISTORY: 73 years-old Female presenting with Fall. right shoulder pain. TECHNIQUE: Internal rotation, external rotation, Grashey views of the right shoulder were obtained. COMPARISON: Chest x-ray from 08/18/2018. FINDINGS: Acromioclavicular and glenohumeral joints congruent. Advanced degenerative changes of the glenohumera l joint with prominent osteophytosis. Suspected loose body in the glenohumeral joint subjacent to the humeral head. No significant subluxation of the humeral head. Underlying osteopenia may be present. No acute fracture or malalignment. Atherosclerosis of the aortic arch. Degenerative changes of the sp ine. Right lung grossly clear. IMPRESSION: 1. Advanced degenerative changes of the glenohumeral joint with less severe degenerative change at t he AC joint. 2. No acute osseous injury. Electronically signed by: Meño Perez M.D. 05/05/2019 8:37 AM
--- NOTE | 2019-05-05 08:39 | XRay Report ---
XR chest 1V portable CLINICAL HISTORY: 73 years-old Female presenting with weakness. TECHNIQUE: Portable upright AP view of the chest was obtained. COMPARISON: 08/18/2018. FINDINGS: Atherosclerosis of the aortic arch. Cardiac silhouette normal in size. Improved aeration at the left lung base. No focal opacity. No large effusion or pneumothorax. Degenerative changes of the thoracic spine. Degenerative changes of the glenohumeral joints. Upper abdomen normal. IMPRESSION: 1. No acute cardiopulmonary disease. Electronically signed by: Meño Perez M.D. 05/05/2019 8:37 AM
[2019-05-05 08:52] LABS: Alanine Aminotransferase 23 U/L (12-78); Albumin Level 3.3 gm/dl (3.4-5.0); Aspartate Aminotransferase 19 U/L (15-37); BUN Creatinine Ratio 14.7 (10-20); Blood Urea Nitrogen 13 mg/dl (7-18); Calcium 8.9 mg/dl (8.5-10.1); Carbon Dioxide 23 mmol/L (21-32); Chloride 100 mmol/L (98-107); Est GFR (African American) 78.2; Est GFR (Non-African American) 67.5; Glucose 111 mg/dl (70-99); Potassium 3.4 mmol/L (3.5-5.1); Sodium 134 mmol/L (136-145)
--- NOTE | 2019-05-05 09:09 | CT Scan Report ---
CT head/brain wo con CLINICAL HISTORY: 73 years-old Female presenting with new neurologic deficits, eval for trauma. TECHNIQUE: Multidetector CT imaging of the head was performed without the use of intravenous contrast . IV contrast: None. One or more dose lowering techniques were used consistent with the principles of ALARA (as low as reasonably achievable), including automatic exposure control, mA or kV adjustment t o individual patient size, and/or use of iterative reconstruction. COMPARISON: 08/10/2018. CT DOSE (mGy.cm): The estimated cumulative dose is 1063.35 mGy.cm. 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 Proportional ventricular and sulcal prominence, likely age-related parenchymal volume loss. No hemorr katie. Periventricular and subcortical white matter hypoattenuation, nonspecific but likely indicative of chronic small vessel ischemic change. No acute territorial infarct. No mass effect or midline anette ft. No extra-axial fluid collection. Paranasal sinuses and mastoid air cells clear. Calvarium intact. Mild soft tissue swelling over the right frontal scalp. IMPRESSION: 1. Chronic small vessel ischemic change. No acute intracranial abnormality. 2. Minimal contusion in the right frontal scalp. No subjacent osseous injury. Electronically signed by: Meño Perez M.D. 05/05/2019 9:08 AM
[2019-05-05 09:12] LABS: Alkaline Phosphatase 131 U/L (45-117); Bilirubin,Total 0.7 mg/dl (0.2-1); Creatine Kinase 115 U/L (26-192); Creatine Kinase MB 1.7 ng/ml (0.5-3.6); Globulin 3.2 gm/dl (2.5-4.0); Total Protein 6.5 gm/dl (6.4-8.2); Troponin I 0.054 ng/ml (0-0.045)
--- NOTE | 2019-05-05 09:16 | CT Scan Report ---
CT cervical spine wo con CLINICAL HISTORY: 73 years-old Female presenting with trauma. TECHNIQUE: Multidetector CT of the cervical spine was performed without the use of intravenous contra st. IV contrast: None. One or more dose lowering techniques were used consistent with the principles of ALARA (as low as reasonably achievable), including automatic exposure control, mA or kV adjustment to individual patient size, and/or use of iterative reconstruction. COMPARISON: Correlation made to CTA of the neck from 08/06/2018. CT DOSE (mGy.cm): The estimated cumulative dose is 1063.35. FINDINGS: Pad Cutter topogram: Unremarkable. Slight kyphotic curvature centered at C5-6 with straightening of the remainder of the cervical spine. Trace anterolisthesis of C4 on C5 likely degenerative in etiology. Mild vertebral body height loss o f C5 may be related to degenerative change and underlying osteopenia. Remaining vertebral bodies demo nstrate normal height and alignment. Severe intervertebral disc height loss at C5-6 and moderate to s evere height loss at C6-7. These levels also demonstrates the greatest degree of degenerative change with disc osteophyte complexes resulting in mild osseous spinal canal narrowing. Limited evaluation o f the soft tissues of the spinal canal do not demonstrate soft tissue effacement. Degenerative change s at the atlantodental articulation. Irregular appearance of the C1-2 articulation on the left with a ssociated sclerosis (series 501 image 20), most likely degenerative in etiology and unchanged from pr ior exam. Diffuse facet arthropathy. Osseous neural foraminal narrowing to varying degrees at nearly every level. No acute fracture or subluxation. Skull base grossly intact. Patchy groundglass opacity and mosaic attenuation at the upper lobes. Paraspinal musculature within normal limits. Atheroscleros is. IMPRESSION: 1. No acute osseous injury of the cervical spine. 2. Multilevel degenerative changes with multilevel osseous spinal canal and neural foraminal narrowi ng. 3. Changes at the lung apices may suggest small airways disease or less likely edema. Electronically signed by: Meño Perez M.D. 05/05/2019 9:15 AM
[2019-05-05] MEDS ORDERED: LIDOCAINE/EPINEPH/TETRACAINE 1 EA SYR EXT STA (09:20)
[2019-05-05] MEDS ORDERED: LIDO/EPINEPHRINE/SOD BICARB 20 ML VIAL INFIL ONE (09:31)
[2019-05-05] MEDS ORDERED: DIPHTHERIA/TETANUS/PERTUSSIS 0.5 ML SYR/VIAL IM ONE (09:31)
[2019-05-05 09:40] LABS: Appearance Urine Clear (Clear); Bacteria Urine Automated Negative (Negative); Bilirubin Urine Negative (Negative); Blood Urine Negative (Negative); Color Urine Dark Yellow; Epithelial Cell Urine Auto >30 /lpf (0-5); Glucose Urine UA Negative (Negative); Ketones Urine Negative (Negative); Leukocyte Esterase Urine 2+ (Negative); Nitrite Urine Negative (Negative); Protein Urine Negative (Negative); RBC Urine Automated 0-4 /hpf (0-4); Specific Gravity Urine 1.016 (1.000-1.030); Urobilinogen Urine Negative (Negative); WBC Urine Automated >30 /hpf (0-5); pH Urine 6.5 (4.5-7.5)
--- NOTE | 2019-05-05 10:12 | Emergency Department Note ---
ED Visit Note EMERGENCY DEPARTMENT PROCEDURE NOTE: I was asked by Dr. Story to repair the frontal scalp wound of this 73-year-old female patient. Please refer to their dictation for the complete history, physical exam, and ED course. EMERGENCY DEPARTMENT COURSE: Wound had been anesthetized with let gel prior to my assessment. The wound was prepped with Betadine and draped with sterile towels. The wound was anesthetized with additional 1% buffered lidocaine with epinephrine. The 3 cm laceration was irrigated copiously using normal saline solution and direct pressure irrigation. The wound was repaired using 5 skin med. Patient tolerated the procedure well.
--- NOTE | 2019-05-05 11:05 | History & Physical Report ---
Date of Service May 05, 2019 Assessment & Plan (1) Altered mental status: 73 y/o with PMH HTN, Hypothyroidism, GERD, Depression, Stroke (March 2018) presents after fall at [facility] and now has concerns for AMS. AMS -CT Head: Chronic small vessel ischemic change. No acute intracranial abnorma lity -Labs unremarkable. EKG NSR w/ fusion complexes -Will not treat for UTI (cx pending) given pt has no urinary sxs -recent med change myrbetriq unlikely to be contributing -In speaking with Nurse Coordinator at [facility], pt's appears at baseline in terms of speech and memory. Noted to be this way since stroke in 2018 -This is likely 2/2 fall and trip and will monitor overnight -PT/OT Elevated Trop -no concern for any cardiac etiology. Will repeat trop later in evening HTN -cont losartan 50 h/o Stroke -cont atorvastatin 40, clopidogrel 75 Depression -cont fluoxetine 20 Hypothyroidism -TSH WNL -cont levothyroxine 100 mcg Bladder Spasms -Cont myrbetriq 50 mg. Unlikely to be contributing to AMS GERD -cont ranitidine 150 FEN/GI: HH Diet DVT Prophylaxis: Lovenox DNR/DNI Dispo: Tele Obs. Likely d/c tomorrow. PT/OT pending History of Present Illness Chief Complaint: AMS Primary Care Provider: [facility] 73 y/o with PMH HTN, Hypothyroidism, GERD, Depression, Stroke presents from [facility] where pt reportedly had a fall in early AM. Pt states that she fell when she got out of bed because it was dark and she tripped on something and fell forward and landed onto R side. Pt was unable to call for help and reported that she was found around 7AM. Notes that she does fall frequently, but unsure of last occurrence or why/how she fell. Pt denies any associated lightheadedness, dizzyness prior to fall. Also denies LOC, numbness/tingling, CP, SOB, palpitations, or any urinary sxs. Has associated R sided BERGERON at present. In ER, concern that pt has altered mentation from baseline. Pt states that she feels like she is at baseline in terms of mentation, but notes that she does have some difficulty finding the right words. In calling [facility], it is noted that pt is at baseline in terms of speech and cognition. She has apparently been this way since 2018 s/p stroke. Pt notes that started medication Mirabegron 50 mg daily a few weeks ago, but otherwise no other new medications or dose changes. Additionally notes feeling under the weather last two days with increased N/V and decreased appetite in that duration. In ER, CT Neck/Head was unremarkable. CXR normal. EKG showed sinus rhythm with fusion complexes, which are new compared to Jul 2018 comparison. Labs: CBC/CMP unremarkable. Trop 0.054. UA: 2+ LE, >30 WBCs. Social Hx- Unremarkable Family Hx- Unremarkable. Pt denies any h/o neurological dx's/delirium/dementia Surg Hx- Arthoplasty R/L ankles. Otherwise unremarkable. Allergies Allergy/AdvReac Type Severity Reaction Status Date / Time erythromycin base Allergy Intermediate GASTRIC Verified 05/05/19 07:59 INFLAMATION rofecoxib Allergy Intermediate GASTRIC Verified 05/05/19 07:59 INFLAMATION Home Medications Home Medications Medication Instructions Recorded Confirmed Type cholecalciferol (vitamin D3) 400 unit PO DAILY 08/06/18 05/05/19 History [Vitamin D3] levothyroxine [Synthroid] 100 mcg PO DAILY 08/06/18 05/05/19 History losartan [Cozaar] 50 mg PO DAILY 08/06/18 05/05/19 History multivitamin 1 tab PO QAM 08/06/18 05/05/19 History psyllium husk [Fiber-Caps 4 cap PO DAILY 08/06/18 05/05/19 History (psyllium husk)] vitamin B complex 1 tab PO DAILY 08/06/18 05/05/19 History clopidogrel 75 mg PO QAM #30 tab 08/20/18 05/05/19 Rx ranitidine HCl 150 mg PO HS #30 cap 08/20/18 05/05/19 Rx acetaminophen [Tylenol Extra 500 mg PO Q4H PRN 05/05/19 05/05/19 History Strength] allopurinol 300 mg PO DAILY 05/05/19 05/05/19 History atorvastatin 40 mg PO DAILY 05/05/19 05/05/19 History docusate sodium 100 mg PO DAILY 05/05/19 05/05/19 History fluoxetine 20 mg PO DAILY 05/05/19 05/05/19 History methocarbamol 500 mg PO TID PRN 05/05/19 05/05/19 History mirabegron [Myrbetriq] 50 mg PO DAILY 05/05/19 05/05/19 History polyethylene glycol 3350 17 g PO DAILY PRN 05/05/19 05/05/19 History sennosides-docusate sodium 1 tab PO DAILYBL PRN 05/05/19 05/05/19 History [Senna-S] sulfamethoxazole-trimethoprim 1 tab PO BID 05/05/19 05/05/19 History Past Med/Surg History Medical History Arthritis HTN (hypertension) Constipation Depression GERD (gastroesophageal reflux disease) H/O: hysterectomy Hypothyroidism Stroke Surgical History History of arthroplasty of left ankle History of arthroplasty of right ankle Status post breast reduction Family History Other Family history non-contributory Social History Preferred Language: Bulgarian Communication Ability: Effective Open [employer] Furn[employer] Helper Required: No Beliefs That Will Affect Care: None marital status: Current Living Situation: [facility] Current Living Situation Comment: [facility] since stroke, Jul, 2018 Feels Safe at Home: Yes Safety Concerns: Feels Safe At This Time Smoking Status: Never smoker Do You Dip or Chew Tobacco: No Second Hand Exposure: No Hx Alcohol Use: No Hx Substance Use: No Review of Systems Review of Systems: All systems reviewed & are unremarkable except as noted in HPI & below Physical Exam Constitutional: WD/WN, vitals as above Eyes: PERRL, conjunctivae normal, anicteric sclerae ENMT: external ear and nose normal, oropharynx normal Respiratory: normal respiratory effort, lungs clear to auscultation Cardiovascular: RRR, no murmur, no edema Gastrointestinal (Abdomen): mild tenderness abd , no guarding/rebound Skin: R forehead laceration at hairline Neurologic: No focal deficits. CN2-12 grossly intact. Strength/Sensation intact. Psychiatric: A+Ox3, euthymic affect Results & Data Vital Signs (Past 12 Hours) Vital Signs Temp Pulse Pulse Resp BP BP Pulse Ox 05/05/19 10:45 84 17 159/77 H 93 05/05/19 09:39 79 19 164/75 H 99 05/05/19 09:00 74 19 135/70 95 05/05/19 08:05 36.6 C 78 20 132/84 99 Laboratory Results Laboratory Results - last 24 hr 05/05/19 05/05/19 05/05/19 08:19 08:19 09:19 WBC 8.46 RBC 4.20 Hgb 13.3 Hct 37.4 MCV 89.0 MCH 31.7 MCHC 35.6 RDW Std Deviation 50.3 H RDW Coeff of Jovani 15.5 H Plt Count 234 MPV 9.8 Immature Gran % (Auto) 0.5 Neut % (Auto) 91.3 Lymph % (Auto) 3.3 Murray % (Auto) 4.8 Eos % (Auto) 0.0 Baso % (Auto) 0.1 Immature Gran # (Auto) 0.04 H Neut # (Auto) 7.72 H Lymph # (Auto) 0.28 L Murray # (Auto) 0.41 Eos # (Auto) 0.00 Baso # (Auto) 0.01 Sodium 134 L Potassium 3.4 L Chloride 100 Carbon Dioxide 23 Anion Gap 10.0 BUN 13 Creatinine 0.85 Est Cr Clr Drug Dosing Not Reportable Est GFR ( Amer) 78.2 Est GFR (Non-Af Amer) 67.5 BUN/Creatinine Ratio 14.7 Glucose 111 H Calcium 8.9 Total Bilirubin 0.7 AST 19 ALT 23 Alkaline Phosphatase 131 H Total Creatine Kinase 115 CK-MB (CK-2) 1.7 CK/CKMB % Calc 1.5 Troponin I 0.054 H* Total Protein 6.5 Albumin 3.3 L Globulin 3.2 Albumin/Globulin Ratio 1.0 TSH 0.738 Urine Color Dark Yellow Urine Appearance Clear Urine pH 6.5 Ur Specific [place] 1.016 Urine Protein Negative Urine Glucose (UA) Negative Urine Ketones Negative Urine Blood Negative Urine Nitrite Negative Urine Bilirubin Negative Urine Urobilinogen Negative Ur Leukocyte Esterase 2+ H Urine WBC (Auto) >30 H Urine RBC (Auto) 0-4 U Hyaline Cast (Auto) 5-10 H U Epithel Cells (Auto) >30 H Urine Bacteria (Auto) Negative Ur Renal Epithelial Cell Not Reportable Code Status & VTE Plan Code Status DNR/DNI Supervising Physician Co-Signing Physician Notes I personally examined the patient and verified all harrell points of history and exam, discussed case, and agree with decision making with Dr Steen. thinks that she just fell because she couldn't see when she got up to pee. no LOC/syncope. no urinary sx whatsoever - was just getting up to pee not urgency/dysuria/etc. no f/c/s. no other sx vitals noted nad heent nc at mmm cardio reg no r/m/g lungs cta b/l no r/r/w good effort abd soft mild diffuse but shifting tenderness (at first L lower, then R upper - nothing consistent, no guarding/rebound/rigidity) fall - seems to have been mechanical fall due to lack of ability to see. recommended visual aids to protect against future falls (such as night light) - no cardiac sx/syncope so doubt cardiac in nature; no urinary sx/sepsis/delirium so despite (+) UA nothing appearing to be infection driven (suspect UA is false positive/colonized depending on culture). ?possibly myrbetriq ADR but in reviewing profile seems to be fairly no probability. PT/OT eval and treat. hopefully can return home mild troponin elevation - very nonspecific. no characteristic symptoms. recheck. if persistent elevation then consider echo. (+) UA - no symptoms. able to provide a reliable history. appears to be false positive vs colonized. DVT proph - lovenox otherwise as above head laceration - repaired in ER. PG Care Time/CCT Total # of Minutes Spent Total Time Spent with Patient: Total time spent is greater than 50% in coordination of care (as documented) at patient's floor/unit and/or counseling patient: Resident Activity Tracking Resident Involvement: Resident Care Provided Care Provided: Adult Hospital Medicine (1) Altered mental status Altered mental status type: unspecified Qualified Code(s): R41.82 - Altered mental status, unspecified
[2019-05-05] MEDS ORDERED: ACETAMINOPHEN 325 MG TAB PO PRN (13:40)
[2019-05-05] MEDS ORDERED: ONDANSETRON INJ 2 MG/ML 2 ML VIAL IV PRN ×2 (13:40)
[2019-05-05] MEDS ORDERED: ACETAMINOPHEN 500 MG TAB PO PRN (13:40)
[2019-05-05] MEDS ORDERED: DOCUSATE SODIUM/SENNA 50/8.6MG TAB PO PRN (13:40)
[2019-05-05] MEDS ORDERED: ALUMINUM/MAGNESIUM SUSP 30 ML UDC PO PRN (13:40)
[2019-05-05] MEDS ORDERED: POLYETHYLENE (MIRALAX) 17 GM PACK PO PRN (13:40)
[2019-05-05] MEDS ORDERED: METHOCARBAMOL 500 MG TABLET PO PRN (13:40)
[2019-05-05] MEDS ORDERED: POLYETHYLENE GLYCOL PO PRN (13:40)
[2019-05-05] MEDS ORDERED: MAGNESIUM HYDROXIDE SUSP 30 ML UDC PO PRN (13:40)
[2019-05-05 14:33] LABS: INR 1.1 (0.9-1.1); Prothrombin Time 11.2 Seconds (9.0-12.0)
[2019-05-05 14:40] LABS: Creatinine Clr Calc Pharmacy 75.4 ml/min; Est GFR (African American) 95.6; Est GFR (Non-African American) 82.5
[2019-05-05] MEDS: SULFAMETHOXAZOLE/TRIMETHOPRIM DS 800/160MG TAB PO SCH (20:25)
[2019-05-05] MEDS: ENOXAPARIN INJ 40 MG/0.4 ML SYR SQ SCH (20:26)
[2019-05-05] MEDS ORDERED: SULFAMETHOXAZOLE/TRIMETHOPRIM DS 800/160MG TAB PO SCH (21:00)
[2019-05-06 05:39] LABS: Basophils # (auto) 0.01 K/uL (0-0.2); Basophils % (auto) 0.2 %; Eosinophils # (auto) 0.07 K/uL (0-0.5); Eosinophils % (auto) 1.2 %; Hematocrit (blood only) 35.7 % (37-47); Hemoglobin 12.2 g/dL (12.0-16.0); Immature Granulocytes # (auto) 0.03 K/uL (0.00-0.02); Immature Granulocytes % (auto) 0.5 %; Lymphocytes # (auto) 0.48 K/uL (1.2-3.4); Lymphocytes % (auto) 8.4 %; Mean Corpuscular Hgb Conc 34.2 g/dL (32-36); Mean Corpuscular Volume 88.6 fL (80-100); Monocytes # (auto) 0.73 K/uL (0.11-0.59); Monocytes % (auto) 12.8 %; Neutrophils # (auto) 4.39 K/uL (1.4-6.5); Neutrophils % (auto) 76.9 %; Platelet Count 184 K/uL (130-400); RDW Coefficient of Variation 15.4 % (11.5-14.5); RDW Standard Deviation 49.7 fL (36.4-46.3); Red Blood Count 4.03 M/uL (4.2-5.4); White Blood Count 5.71 K/uL (4.8-10.8)
[2019-05-06 06:07] LABS: Calcium 8.1 mg/dl (8.5-10.1); Creatinine Clr Calc Pharmacy 76.4 ml/min; Est GFR (African American) 97.3; Est GFR (Non-African American) 83.9; Potassium 3.1 mmol/L (3.5-5.1)
[2019-05-06] MEDS: LEVOTHYROXINE SODIUM 100 MCG TABLET PO SCH (06:12)
[2019-05-06] MEDS: POTASSIUM CHLORIDE / WTR 10 MEQ/100 ML PLCT IV SCH ×4 (07:53→14:49)
[2019-05-06] MEDS: MULTIVITAMIN TAB PO SCH (08:59)
[2019-05-06] MEDS: ATORVASTATIN 40 MG TAB PO SCH (08:59)
[2019-05-06] MEDS: SULFAMETHOXAZOLE/TRIMETHOPRIM DS 800/160MG TAB PO SCH ×2 (08:59→20:24)
[2019-05-06] MEDS: CHOLECALCIFEROL (VITAMIN D) 400 UNITS TABLET PO SCH (08:59)
[2019-05-06] MEDS: ALLOPURINOL 300 MG TAB PO SCH (09:00)
[2019-05-06] MEDS: LOSARTAN POTASSIUM 50 MG TAB PO SCH (09:00)
[2019-05-06] MEDS: MIRABEGRON ER 25 MG TAB PO SCH (09:00)
[2019-05-06] MEDS: DOCUSATE SODIUM 100 MG CAP PO SCH (09:00)
[2019-05-06] MEDS: FLUOXETINE HCL 20 MG CAP PO SCH (09:46)
[2019-05-06] MEDS: CLOPIDOGREL BISULFATE 75 MG TAB PO SCH (09:46)
[2019-05-06] MEDS: PSYLLIUM 58.6% POWDER PACKET PO SCH (09:47)
[2019-05-06] MEDS: VITAMIN B COMPLEX TAB PO SCH (10:29)
--- NOTE | 2019-05-06 14:58 | Family Medicine Progress Note ---
Date of Service May 06, 2019 Assessment & Plan (1) Altered mental status: 73 y/o with PMH HTN, Hypothyroidism, GERD, Depression, Stroke (March 2018) presents after fall at [facility] and now has concerns for AMS. AMS/Fall -CT Head: Chronic small vessel ischemic change. No acute intracranial ab normality -Labs unremarkable. EKG NSR w/ fusion complexes, likely artifact -Will cont bactrim started CASE MGR for UTI even though pt has no urinary sxs, total 10 day course for complicated UTI. Cx: gram neg bacilli -recent med change myrbetriq unlikely to be contributing -In speaking with Nurse Coordinator at [facility], pt's appears at baseline in terms of speech and memory. Noted to be this way since stroke in 2018. Daughter agrees. -This is likely 2/2 fall and trip 2/2 lack of ability to see given lack of nightlighting in room -no cardiac etiology likely given lack of sxs -PT/OT- recs STR/snf Elevated Trop -no concern for any cardiac etiology. Repeat trop about the same. Likely related to LVH causing chronic low grade leak HTN -cont losartan 50 h/o Stroke -cont atorvastatin 40, clopidogrel 75 Depression -cont fluoxetine 20 Hypothyroidism -TSH WNL -cont levothyroxine 100 mcg Bladder Spasms -Cont myrbetriq 50 mg. Unlikely to be contributing to AMS GERD -cont ranitidine 150 FEN/GI: HH Diet DVT Prophylaxis: Lovenox DNR/DNI Dispo: Tele Obs. Likely d/c tomorrow to STR/snf. CM working on placement. Daughter Kayla will transport, cell number left in room. Supervising Physician Co-Signing Physician Notes I personally examined the patient and verified all harrell points of history and exam, discussed case, and agree with decision making with Dr Steen. would like to go home. no new complaints. reiterates HPI exactly as yesterday. no new complaints. vitals noted nad heent nc at mmm breathing unlabored no accessory muscles. abd soft nd nt. no cyanosis. no new focal neuro deficits. fall - seems to have been mechanical fall due to lack of ability to see. recommended visual aids to protect against future falls (such as night light) - no cardiac sx/syncope so doubt cardiac in nature; no urinary sx/sepsis/delirium so despite (+) UA nothing appearing to be infection driven (suspect UA is false positive/colonized depending on culture). ?possibly ruben ADR but in reviewing profile seems to be fairly no probability. unfortunately therapy recs suggest she could use some strengthening before return to [facility]. case management consulted. mild troponin elevation - very nonspecific. no characteristic symptoms. old echo noted. strongly suspect low grade chronic leak related to LVH (+) UA - no symptoms. able to provide a reliable history. appears to be false positive vs colonized. no treatment warranted. DVT proph - lovenox otherwise as above head laceration - repaired in ER. Subjective 73 y/o F found in bed this AM in NAD. Reports no acute overnight events. Feels about the same as yesterday in terms of cognition. Still A&Ox3, just takes her some time to think of the answers. Tolerating PO intake. No issues voiding. No other acute concerns or complaints. Review of Systems Review of Systems: All systems reviewed & are unremarkable except as noted in HPI & below Physical Exam Constitutional: WD/WN, vitals as above Eyes: PERRL, conjunctivae normal, anicteric sclerae ENMT: external ear and nose normal, oropharynx normal Respiratory: normal respiratory effort, lungs clear to auscultation Cardiovascular: RRR, no murmur, no edema Gastrointestinal (Abdomen): normal bowel sounds, soft, nontender, no hepatosplenomegaly Neurologic: CN's II-XI intact bilaterally no focal deficits Psychiatric: A+Ox3, euthymic affect Results & Data Vital Signs (Past 12 Hours) Vital Signs Temp Pulse Pulse Resp BP Pulse Ox 05/06/19 11:45 37.2 C 74 16 108/62 91 05/06/19 11:20 98 05/06/19 09:22 72 05/06/19 07:14 36.9 C 58 L 16 115/67 96 05/06/19 04:00 37.7 C H 77 18 128/75 98 Laboratory Results Laboratory Results - last 24 hr 05/05/19 05/06/19 05/06/19 16:27 05:29 05:29 WBC 5.71 RBC 4.03 L Hgb 12.2 Hct 35.7 L MCV 88.6 MCH 30.3 MCHC 34.2 RDW Std Deviation 49.7 H RDW Coeff of Jovani 15.4 H Plt Count 184 MPV 10.0 Immature Gran % (Auto) 0.5 Neut % (Auto) 76.9 Lymph % (Auto) 8.4 [place] % (Auto) 12.8 Eos % (Auto) 1.2 Baso % (Auto) 0.2 Immature Gran # (Auto) 0.03 H Neut # (Auto) 4.39 Lymph # (Auto) 0.48 L [place] # (Auto) 0.73 H Eos # (Auto) 0.07 Baso # (Auto) 0.01 Sodium 134 L Potassium 3.1 L Chloride 104 Carbon Dioxide 22 Anion Gap 8.0 BUN 13 Creatinine 0.71 Est Cr Clr Drug Dosing 76.4 Est GFR ( Amer) 97.3 Est GFR (Non-Af Amer) 83.9 BUN/Creatinine Ratio 18.0 Glucose 89 Calcium 8.1 L Troponin I 0.053 H* Medications Administered Current Inpatient Medications Acetaminophen (Tylenol) 650 mg PO Q4H PRN PRN Reason: pain/fever Stop: 06/04/19 13:39 Al Hydrox/Mg Hydrox/Simethicone (Maalox) 30 ml PO Q6H PRN PRN Reason: Dyspepsia Stop: 06/04/19 13:39 Allopurinol (Zyloprim) 300 mg PO DAILY [facility] Stop: 06/05/19 08:59 Last Admin: 05/06/19 09:00 Dose: 300 mg Documented by: Atorvastatin Calcium (Lipitor) 40 mg PO DAILY [facility] Stop: 06/05/19 08:59 Last Admin: 05/06/19 08:59 Dose: 40 mg Documented by: Clopidogrel Bisulfate (Plavix) 75 mg PO QAM [facility] Stop: 06/05/19 08:59 Last Admin: 05/06/19 09:46 Dose: 75 mg Documented by: Docusate Sodium (Colace) 100 mg PO DAILY [facility] Stop: 06/05/19 08:59 Last Admin: 05/06/19 09:00 Dose: 100 mg Documented by: Enoxaparin Sodium (Lovenox) 40 mg SQ Q24H [facility] Stop: 06/04/19 21:59 Last Admin: 05/05/19 20:26 Dose: 40 mg Documented by: Fluoxetine HCl (Prozac) 20 mg PO DAILY [facility] Stop: 06/05/19 08:59 Last Admin: 05/06/19 09:46 Dose: 20 mg Documented by: Levothyroxine Sodium (Synthroid) 100 mcg PO DAILYBB [facility] Stop: 06/05/19 06:29 Last Admin: 05/06/19 06:12 Dose: 100 mcg Documented by: Losartan Potassium (Cozaar) 50 mg PO DAILY [facility] Stop: 06/05/19 08:59 Last Admin: 05/06/19 09:00 Dose: 50 mg Documented by: Magnesium Hydroxide (Milk Of Magnesia) 30 ml PO Q6H PRN PRN Reason: Constipation Stop: 06/04/19 13:39 Methocarbamol (Robaxin) 500 mg PO TID PRN PRN Reason: Pain Stop: 06/04/19 13:39 Mirabegron (Myrbetriq Er) 50 mg PO DAILY [facility] Stop: 06/05/19 08:59 Last Admin: 05/06/19 09:00 Dose: 50 mg Documented by: Multivitamins (Multivitamin Tab) 1 tab PO QAM [facility] Stop: 06/05/19 08:59 Last Admin: 05/06/19 08:59 Dose: 1 tab Documented by: Ondansetron HCl (Zofran) 4 mg IV Q6H PRN PRN Reason: Nausea Stop: 06/04/19 13:39 Polyethylene Glycol (Miralax Powder Packet) 17 gm PO DAILY PRN PRN Reason: Constipation Stop: 06/04/19 13:39 Psyllium Hydrophilic Mucilloid (Metamucil) 4 pkt PO DAILY [facility] Stop: 06/05/19 08:59 Last Admin: 05/06/19 09:47 Dose: 4 pkt Documented by: Ranitidine HCl (Zantac) 150 mg PO HS [facility] Stop: 06/04/19 20:59 Last Admin: 05/05/19 20:25 Dose: 150 mg Documented by: Senna/Docusate Sodium (Senokot S) 1 tab PO DAILYBL PRN PRN Reason: Constipation Stop: 06/04/19 13:39 Trimethoprim/Sulfamethoxazole (Septra Ds 800/160mg Tab) 1 tab PO BID [facility] Stop: 05/07/19 20:59 Last Admin: 05/06/19 08:59 Dose: 1 tab Documented by: Vitamin B Complex (Vitamin B Complex) 1 tab PO DAILY [facility] Stop: 06/05/19 08:59 Last Admin: 05/06/19 10:29 Dose: 1 tab Documented by: Vitamin D (Vitamin D3) 400 units PO DAILY [facility] Stop: 06/05/19 08:59 Last Admin: 05/06/19 08:59 Dose: 400 units Documented by: PG Care Time/CCT Total # of Minutes Spent Total Time Spent with Patient: Total time spent is greater than 50% in coordination of care (as documented) at patient's floor/unit and/or counseling patient: Resident Activity Tracking Resident Involvement: Resident Care Provided Care Provided: Adult Hospital Medicine (1) Altered mental status Altered mental status type: unspecified Qualified Code(s): R41.82 - Altered mental status, unspecified
[2019-05-06] MEDS: ENOXAPARIN INJ 40 MG/0.4 ML SYR SQ SCH (20:24)
[2019-05-07] MEDS: LEVOTHYROXINE SODIUM 100 MCG TABLET PO SCH (06:08)
[2019-05-07 07:01] LABS: Basophils # (auto) 0.02 K/uL (0-0.2); Basophils % (auto) 0.4 %; Eosinophils # (auto) 0.06 K/uL (0-0.5); Eosinophils % (auto) 1.1 %; Hematocrit (blood only) 34.5 % (37-47); Hemoglobin 11.8 g/dL (12.0-16.0); Immature Granulocytes # (auto) 0.02 K/uL (0.00-0.02); Immature Granulocytes % (auto) 0.4 %; Lymphocytes # (auto) 0.71 K/uL (1.2-3.4); Lymphocytes % (auto) 12.5 %; Mean Corpuscular Hgb Conc 34.2 g/dL (32-36); Mean Corpuscular Volume 88.7 fL (80-100); Mean Platelet Volume 10.1 fL (7.4-10.4); Monocytes # (auto) 1.12 K/uL (0.11-0.59); Monocytes % (auto) 19.7 %; Neutrophils # (auto) 3.76 K/uL (1.4-6.5); Neutrophils % (auto) 65.9 %; Platelet Count 184 K/uL (130-400); RDW Coefficient of Variation 15.6 % (11.5-14.5); RDW Standard Deviation 49.9 fL (36.4-46.3); Red Blood Count 3.89 M/uL (4.2-5.4); White Blood Count 5.69 K/uL (4.8-10.8)
[2019-05-07 07:31] LABS: BUN Creatinine Ratio 18.1 (10-20); Calcium 8.4 mg/dl (8.5-10.1); Creatinine Clr Calc Pharmacy 77.4 ml/min; Est GFR (African American) 98.9; Est GFR (Non-African American) 85.4; Potassium 3.2 mmol/L (3.5-5.1)
--- NOTE | 2019-05-07 07:45 | Family Medicine Progress Note ---
Date of Service May 07, 2019 Assessment & Plan (1) Head injury: 73 y/o with PMH HTN, Hypothyroidism, GERD, Depression, Stroke (March 2018) who presented after fall at [facility] and concerns for AMS. AMS/Fall -pt currently at baseline per daughter and professional nursing assistant at [facility] -fall likely mechanical as pt does not like lights on -Last day of empiric Bactrim treatment for UTI. -CT Head: Chronic small vessel ischemic change. No acute intracranial abnormality -Labs unremarkable. EKG NSR w/ fusion complexes, likely artifact -no cardiac etiology likely given lack of sxs -PT/OT- recs STR/snf--pt currently refusing placement. Will discuss with POA which is . Elevated Trop -no concern for any cardiac etiology. Repeat trop about the same. Likely related to LVH causing chronic low grade leak HTN -cont losartan 50 h/o Stroke -cont atorvastatin 40, clopidogrel 75 Depression -cont fluoxetine 20 Hypothyroidism -TSH WNL -cont levothyroxine 100 mcg Bladder Spasms -Cont myrbetriq 50 mg. Unlikely to be contributing to AMS GERD -cont ranitidine 150 FEN/GI: HH Diet DVT Prophylaxis: Lovenox DNR/DNI Dispo: SNF/Rehab pending POA approval. Supervising Physician Co-Signing Physician Notes Attending attestation Pt seen and examined in concert with Dr. Nicole. In agreement with the documented findings as noted in the resident documentation with any exceptions or additions as noted here. Resting comfortably in bed without acute complaint. Evident impulsivity in interaction, though is oriented to person, place and time. Unable to clarify the president (Jose E). Shows limited understanding of (or willful ignoring of) circumstances leading to her fall as noted in PT documentation. On examination, S1/S2 nl RRR no MCG. CTAB. Abd NT/ND BS+ve Ambulatory dysfunction, chronic, with mechanical fall - agree w/ PT assessment that patient would likely benefit from a brief rehab stay, though would likely warrant discussion w/ daughter who is coming by today. Elevated troponin - mildly elevated and stable, likely LVH related leak Else see resident documentation as noted. Subjective Pt was AAOx2 this AM. Denied any dysuria or abdominal pain. Denied BERGERON, blurry vision, chest pain, SOB, palpitations, N/V, diarrhea or constipation. Review of Systems Review of Systems: All systems reviewed & are unremarkable except as noted in HPI & below Physical Exam Physical Exam: General: Alert, orientedx2. No acute distress HEENT: NC, right sided stapled scalp laceration, PERRLA, EOMI, oropharynx moist. Chest: Nontender to palpation. CV: RRR, Normal s1, s2. Resp: Breath sounds clear bilaterally, no increased effort of breathing. No crackles/rhonchi/rales. Abdomen: Soft, nontender, nondistended. No guarding. No organomegaly appreciated. Extremities: No edema. Results & Data Vital Signs (Past 12 Hours) Vital Signs Temp Pulse Resp BP Pulse Ox 05/07/19 07:00 36.5 C 77 19 116/69 94 05/06/19 23:46 37.1 C 76 18 129/74 98 Laboratory Results Laboratory Results - last 24 hr 05/07/19 05/07/19 06:39 06:39 WBC 5.69 RBC 3.89 L Hgb 11.8 L Hct 34.5 L MCV 88.7 MCH 30.3 MCHC 34.2 RDW Std Deviation 49.9 H RDW Coeff of Jovani 15.6 H Plt Count 184 MPV 10.1 Immature Gran % (Auto) 0.4 Neut % (Auto) 65.9 Lymph % (Auto) 12.5 [place] % (Auto) 19.7 Eos % (Auto) 1.1 Baso % (Auto) 0.4 Immature Gran # (Auto) 0.02 Neut # (Auto) 3.76 Lymph # (Auto) 0.71 L [place] # (Auto) 1.12 H Eos # (Auto) 0.06 Baso # (Auto) 0.02 Sodium 136 Potassium 3.2 L Chloride 106 Carbon Dioxide 21 Anion Gap 9.0 BUN 13 Creatinine 0.70 Est Cr Clr Drug Dosing 77.4 Est GFR ( Amer) 98.9 Est GFR (Non-Af Amer) 85.4 BUN/Creatinine Ratio 18.1 Glucose 87 Calcium 8.4 L Medications Administered Home Medications cholecalciferol (vitamin D3) [Vitamin D3] 400 unit PO DAILY 08/06/18 [History Confirmed 05/05/19] levothyroxine [Synthroid] 100 mcg PO DAILY 08/06/18 [History Confirmed 05/05/19] losartan [Cozaar] 50 mg PO DAILY 08/06/18 [History Confirmed 05/05/19] multivitamin 1 tab PO QAM 08/06/18 [History Confirmed 05/05/19] psyllium husk [Fiber-Caps (psyllium husk)] 4 cap PO DAILY 08/06/18 [History Confirmed 05/05/19] vitamin B complex 1 tab PO DAILY 08/06/18 [History Confirmed 05/05/19] clopidogrel 75 mg PO QAM #30 tab 08/20/18 [Rx Confirmed 05/05/19] ranitidine HCl 150 mg PO HS #30 cap 08/20/18 [Rx Confirmed 05/05/19] acetaminophen [Tylenol Extra Strength] 500 mg PO Q4H PRN 05/05/19 [History Confirmed 05/05/19] allopurinol 300 mg PO DAILY 05/05/19 [History Confirmed 05/05/19] atorvastatin 40 mg PO DAILY 05/05/19 [History Confirmed 05/05/19] docusate sodium 100 mg PO DAILY 05/05/19 [History Confirmed 05/05/19] fluoxetine 20 mg PO DAILY 05/05/19 [History Confirmed 05/05/19] methocarbamol 500 mg PO TID PRN 05/05/19 [History Confirmed 05/05/19] mirabegron [Myrbetriq] 50 mg PO DAILY 05/05/19 [History Confirmed 05/05/19] polyethylene glycol 3350 17 g PO DAILY PRN 05/05/19 [History Confirmed 05/05/19] sennosides-docusate sodium [Senna-S] 1 tab PO DAILYBL PRN 05/05/19 [History Confirmed 05/05/19] sulfamethoxazole-trimethoprim 1 tab PO BID 05/05/19 [History Confirmed 05/05/19] Active Medications Acetaminophen (Tylenol) 650 mg PO Q4H PRN PRN Reason: pain/fever Stop: 06/04/19 13:39 Al Hydrox/Mg Hydrox/Simethicone (Maalox) 30 ml PO Q6H PRN PRN Reason: Dyspepsia Stop: 06/04/19 13:39 Allopurinol (Zyloprim) 300 mg PO DAILY SEFERINO Stop: 06/05/19 08:59 Last Admin: 05/07/19 08:33 Dose: 300 mg Documented by: Atorvastatin Calcium (Lipitor) 40 mg PO DAILY SEFER[facility] Stop: 06/05/19 08:59 Last Admin: 05/07/19 08:33 Dose: 40 mg Documented by: Clopidogrel Bisulfate (Plavix) 75 mg PO QAM [facility] Stop: 06/05/19 08:59 Last Admin: 05/07/19 08:29 Dose: 75 mg Documented by: Docusate Sodium (Colace) 100 mg PO DAILY [facility] Stop: 06/05/19 08:59 Last Admin: 05/07/19 08:30 Dose: 100 mg Documented by: Enoxaparin Sodium (Lovenox) 40 mg SQ Q24H [facility] Stop: 06/04/19 21:59 Last Admin: 05/06/19 20:24 Dose: 40 mg Documented by: Fluoxetine HCl (Prozac) 20 mg PO DAILY [facility] Stop: 06/05/19 08:59 Last Admin: 05/07/19 08:31 Dose: 20 mg Documented by: Levothyroxine Sodium (Synthroid) 100 mcg PO DAILYBB [facility] Stop: 06/05/19 06:29 Last Admin: 05/07/19 06:08 Dose: 100 mcg Documented by: Losartan Potassium (Cozaar) 50 mg PO DAILY [facility] Stop: 06/05/19 08:59 Last Admin: 05/07/19 08:32 Dose: 50 mg Documented by: Magnesium Hydroxide (Milk Of Magnesia) 30 ml PO Q6H PRN PRN Reason: Constipation Stop: 06/04/19 13:39 Methocarbamol (Robaxin) 500 mg PO TID PRN PRN Reason: Pain Stop: 06/04/19 13:39 Last Admin: 05/07/19 08:32 Dose: 500 mg Documented by: Mirabegron (Myrbetriq Er) 50 mg PO DAILY [facility] Stop: 06/05/19 08:59 Last Admin: 05/07/19 08:33 Dose: 50 mg Documented by: [facility]ivit[facility] ([facility]itamin Tab) [facility] [place] Stop: 06/05/19 08:59 Last Admin: 05/07/19 08:30 Dose: 1 tab Documented by: Ondansetron HCl (Zofran) 4 mg IV Q6H PRN PRN Reason: Nausea Stop: 06/04/19 13:39 Polyethylene Glycol (Miralax Powder Packet) 17 gm PO DAILY PRN PRN Reason: Constipation Stop: 06/04/19 13:39 Psyllium Hydrophilic Mucilloid (Metamucil) 4 pkt PO DAILY [facility] Stop: 06/05/19 08:59 Last Admin: 05/07/19 08:30 Dose: Not Given Documented by: Ranitidine HCl (Zantac) 150 mg PO HS [facility] Stop: 06/04/19 20:59 Last Admin: 05/06/19 20:24 Dose: 150 mg Documented by: Senna/Docusate Sodium (Senokot S) 1 tab PO DAILYBL PRN PRN Reason: Constipation Stop: 06/04/19 13:39 Trimethoprim/Sulfamethoxazole (Septra Ds 800/160mg Tab) 1 tab PO BID [facility] Stop: 05/07/19 20:59 Last Admin: 05/07/19 08:32 Dose: 1 tab Documented by: Vitamin B Complex (Vitamin B Complex) 1 tab PO DAILY [facility] Stop: 06/05/19 08:59 Last Admin: 05/07/19 08:33 Dose: 1 tab Documented by: Vitamin D (Vitamin D3) 400 units PO DAILY [facility]FER[facility] Stop: 06/05/19 08:59 Last Admin: 05/07/19 08:29 Dose: 400 units Documented by: Resident Activity Tracking Resident Involvement: Resident Care Provided Care Provided: Adult Hospital Medicine (1) Head injury Encounter type: initial encounter Qualified Code(s): S09.90XA - Unspecified injury of head, initial encounter
[2019-05-07] MEDS: CLOPIDOGREL BISULFATE 75 MG TAB PO SCH (08:29)
[2019-05-07] MEDS: CHOLECALCIFEROL (VITAMIN D) 400 UNITS TABLET PO SCH (08:29)
[2019-05-07] MEDS: DOCUSATE SODIUM 100 MG CAP PO SCH (08:30)
[2019-05-07] MEDS: MULTIVITAMIN TAB PO SCH (08:30)
[2019-05-07] MEDS: PSYLLIUM 58.6% POWDER PACKET PO SCH (08:30)
[2019-05-07] MEDS ORDERED: POTASSIUM CHLORIDE 20 MEQ TABCR PO ONE (08:30)
[2019-05-07] MEDS: FLUOXETINE HCL 20 MG CAP PO SCH (08:31)
[2019-05-07] MEDS: SULFAMETHOXAZOLE/TRIMETHOPRIM DS 800/160MG TAB PO SCH (08:32)
[2019-05-07] MEDS: LOSARTAN POTASSIUM 50 MG TAB PO SCH (08:32)
[2019-05-07] MEDS: ALLOPURINOL 300 MG TAB PO SCH (08:33)
[2019-05-07] MEDS: MIRABEGRON ER 25 MG TAB PO SCH (08:33)
[2019-05-07] MEDS: ATORVASTATIN 40 MG TAB PO SCH (08:33)
[2019-05-07] MEDS: VITAMIN B COMPLEX TAB PO SCH (08:33)
[2019-05-07] MEDS: ENOXAPARIN INJ 40 MG/0.4 ML SYR SQ SCH (20:48)
[2019-05-08] MEDS: LEVOTHYROXINE SODIUM 100 MCG TABLET PO SCH (05:48)
[2019-05-08 06:55] LABS: Basophils # (auto) 0.05 K/uL (0-0.2); Basophils % (auto) 0.8 %; Eosinophils # (auto) 0.02 K/uL (0-0.5); Eosinophils % (auto) 0.3 %; Hematocrit (blood only) 35.8 % (37-47); Hemoglobin 11.9 g/dL (12.0-16.0); Immature Granulocytes # (auto) 0.01 K/uL (0.00-0.02); Immature Granulocytes % (auto) 0.2 %; Lymphocytes # (auto) 1.52 K/uL (1.2-3.4); Lymphocytes % (auto) 24.2 %; Mean Corpuscular Hgb Conc 33.2 g/dL (32-36); Mean Corpuscular Volume 90.9 fL (80-100); Mean Platelet Volume 10.3 fL (7.4-10.4); Monocytes % (auto) 25.5 %; Neutrophils # (auto) 3.07 K/uL (1.4-6.5); Platelet Count 206 K/uL (130-400); RDW Coefficient of Variation 16.1 % (11.5-14.5); RDW Standard Deviation 53.3 fL (36.4-46.3); Red Blood Count 3.94 M/uL (4.2-5.4); White Blood Count 6.27 K/uL (4.8-10.8)
[2019-05-08 07:17] LABS: BUN Creatinine Ratio 14.4 (10-20); Calcium 8.2 mg/dl (8.5-10.1); Creatinine Clr Calc Pharmacy 66.1 ml/min; Est GFR (African American) 81.7; Est GFR (Non-African American) 70.5; Potassium 3.8 mmol/L (3.5-5.1)
[2019-05-08] MEDS: FLUOXETINE HCL 20 MG CAP PO SCH (08:39)
[2019-05-08] MEDS: MULTIVITAMIN TAB PO SCH (08:39)
[2019-05-08] MEDS: DOCUSATE SODIUM 100 MG CAP PO SCH (08:40)
[2019-05-08] MEDS: LOSARTAN POTASSIUM 50 MG TAB PO SCH (08:40)
[2019-05-08] MEDS: ATORVASTATIN 40 MG TAB PO SCH (08:40)
[2019-05-08] MEDS: MIRABEGRON ER 25 MG TAB PO SCH (08:40)
[2019-05-08] MEDS: CLOPIDOGREL BISULFATE 75 MG TAB PO SCH (08:40)
[2019-05-08] MEDS: ALLOPURINOL 300 MG TAB PO SCH (08:41)
[2019-05-08] MEDS: CHOLECALCIFEROL (VITAMIN D) 400 UNITS TABLET PO SCH (08:41)
[2019-05-08] MEDS: VITAMIN B COMPLEX TAB PO SCH (08:41)
[2019-05-08] MEDS: PSYLLIUM 58.6% POWDER PACKET PO SCH (08:42)
--- NOTE | 2019-05-08 09:00 | Family Medicine Progress Note ---
Date of Service May 08, 2019 Assessment & Plan (1) Head injury: 73 y/o with PMH HTN, Hypothyroidism, GERD, Depression, Stroke (March 2018) who presented after a mechanical fall at [facility]. Admitted out of concern for AMS. Currently at baseline, awaiting placement at a SNF/acute rehab per request by who is her proxy. AMS/Fall -pt currently at baseline per daughter and clinical administrative coordinator at [facility] -fall likely mechanical as pt does not like lights on -Completed course of empiric Bactrim treatment for UTI. -CT Head: Chronic small vessel ischemic change. No acute intracranial abnormality -Labs unremarkable. EKG NSR w/ fusion complexes, likely artifact -no cardiac etiology likely given lack of sxs -PT/OT- recs STR/snf--pt currently refusing placement. Proxy in agreement for acute rehab/snf Elevated Trop -no concern for any cardiac etiology. Repeat trop about the same. Likely related to LVH causing chronic low grade leak HTN -cont losartan 50 h/o Stroke -cont atorvastatin 40, clopidogrel 75 Depression -cont fluoxetine 20 Hypothyroidism -TSH WNL -cont levothyroxine 100 mcg Bladder Spasms -Cont myrbetriq 50 mg. Unlikely to be contributing to AMS GERD -cont ranitidine 150 FEN/GI: HH Diet DVT Prophylaxis: Lovenox DNR/DNI Dispo: SNF/Rehab pending placement Supervising Physician Co-Signing Physician Notes Attending attestation Pt seen and examined in concert with Dr. Nicole. In agreement with the documented findings as noted in the resident documentation with any exceptions or additions as noted here. No acute complaints at present or overnight. Difficulty with orientation but AAOx3. On examination, S1/S2 nl RRR no MCG. CTAB. Abd NT/ND BS+ve Ambulatory dysfunction, chronic, with mechanical fall - patient would benefit from rehab, though family wishes return to [facility] home and outpatient PT. Else see resident documentation as noted. Subjective Pt states she has headaches from her head laceration but denies that she needs pain medications to help with it. Denies any acute changes. Review of Systems Review of Systems: Unobtainable due to cognitive status Physical Exam Physical Exam: General: Alert, orientedx2. No acute distress HEENT: NC, right sided stapled scalp laceration, PERRLA, EOMI, oropharynx moist. Chest: Nontender to palpation. CV: RRR, Normal s1, s2. Resp: Breath sounds clear bilaterally, no increased effort of breathing. No crackles/rhonchi/rales. Abdomen: Soft, nontender, nondistended. No guarding. No organomegaly appreciated. Extremities: No edema. Results & Data Vital Signs (Past 12 Hours) Vital Signs Temp Pulse Resp BP BP Pulse Ox 05/08/19 07:06 36.8 C 76 16 107/68 95 05/07/19 23:50 36.4 C L 74 18 116/70 96 Laboratory Results Laboratory Results - last 24 hr 05/08/19 05/08/19 06:24 06:24 WBC 6.27 RBC 3.94 L Hgb 11.9 L Hct 35.8 L MCV 90.9 MCH 30.2 MCHC 33.2 RDW Std Deviation 53.3 H RDW Coeff of Jovani 16.1 H Plt Count 206 MPV 10.3 Immature Gran % (Auto) 0.2 Neut % (Auto) 49.0 Lymph % (Auto) 24.2 [place] % (Auto) 25.5 Eos % (Auto) 0.3 Baso % (Auto) 0.8 Immature Gran # (Auto) 0.01 Neut # (Auto) 3.07 Lymph # (Auto) 1.52 [place] # (Auto) 1.60 H Eos # (Auto) 0.02 Baso # (Auto) 0.05 Sodium 135 L Potassium 3.8 D Chloride 107 Carbon Dioxide 22 Anion Gap 6.0 BUN 12 Creatinine 0.82 Est Cr Clr Drug Dosing 66.1 Est GFR ( Amer) 81.7 Est GFR (Non-Af Amer) 70.5 BUN/Creatinine Ratio 14.4 Glucose 86 Calcium 8.2 L Medications Administered Home Medications cholecalciferol (vitamin D3) [Vitamin D3] 400 unit PO DAILY 08/06/18 [History Confirmed 05/05/19] levothyroxine [Synthroid] 100 mcg PO DAILY 08/06/18 [History Confirmed 05/05/19] losartan [Cozaar] 50 mg PO DAILY 08/06/18 [History Confirmed 05/05/19] multivitamin 1 tab PO QAM 08/06/18 [History Confirmed 05/05/19] psyllium husk [Fiber-Caps (psyllium husk)] 4 cap PO DAILY 08/06/18 [History Confirmed 05/05/19] vitamin B complex 1 tab PO DAILY 08/06/18 [History Confirmed 05/05/19] clopidogrel 75 mg PO QAM #30 tab 08/20/18 [Rx Confirmed 05/05/19] ranitidine HCl 150 mg PO HS #30 cap 08/20/18 [Rx Confirmed 05/05/19] acetaminophen [Tylenol Extra Strength] 500 mg PO Q4H PRN 05/05/19 [History Confirmed 05/05/19] allopurinol 300 mg PO DAILY 05/05/19 [History Confirmed 05/05/19] atorvastatin 40 mg PO DAILY 05/05/19 [History Confirmed 05/05/19] docusate sodium 100 mg PO DAILY 05/05/19 [History Confirmed 05/05/19] fluoxetine 20 mg PO DAILY 05/05/19 [History Confirmed 05/05/19] methocarbamol 500 mg PO TID PRN 05/05/19 [History Confirmed 05/05/19] mirabegron [Myrbetriq] 50 mg PO DAILY 05/05/19 [History Confirmed 05/05/19] polyethylene glycol 3350 17 g PO DAILY PRN 05/05/19 [History Confirmed 05/05/19] sennosides-docusate sodium [Senna-S] 1 tab PO DAILYBL PRN 05/05/19 [History Confirmed 05/05/19] sulfamethoxazole-trimethoprim 1 tab PO BID 05/05/19 [History Confirmed 05/05/19] Active Medications Acetaminophen (Tylenol) 650 mg PO Q4H PRN PRN Reason: pain/fever Stop: 06/04/19 13:39 Al Hydrox/Mg Hydrox/Simethicone (Maalox) 30 ml PO Q6H PRN PRN Reason: Dyspepsia Stop: 06/04/19 13:39 Allopurinol (Zyloprim) 300 mg PO DAILY [facility] Stop: 06/05/19 08:59 Last Admin: 05/08/19 08:41 Dose: 300 mg Documented by: Atorvastatin Calcium (Lipitor) 40 mg PO DAILY [facility] Stop: 06/05/19 08:59 Last Admin: 05/08/19 08:40 Dose: 40 mg Documented by: Clopidogrel Bisulfate (Plavix) 75 mg PO QAM [facility] Stop: 06/05/19 08:59 Last Admin: 05/08/19 08:40 Dose: 75 mg Documented by: Docusate Sodium (Colace) 100 mg PO DAILY [facility] Stop: 06/05/19 08:59 Last Admin: 05/08/19 08:40 Dose: 100 mg Documented by: Enoxaparin Sodium (Lovenox) 40 mg SQ Q24H [facility] Stop: 06/04/19 21:59 Last Admin: 05/07/19 20:48 Dose: 40 mg Documented by: Fluoxetine HCl (Prozac) 20 mg PO DAILY [facility] Stop: 06/05/19 08:59 Last Admin: 05/08/19 08:39 Dose: 20 mg Documented by: Levothyroxine Sodium (Synthroid) 100 mcg PO DAILYBB [facility] Stop: 06/05/19 06:29 Last Admin: 05/08/19 05:48 Dose: 100 mcg Documented by: Losartan Potassium (Cozaar) 50 mg PO DAILY [facility] Stop: 06/05/19 08:59 Last Admin: 05/08/19 08:40 Dose: 50 mg Documented by: Magnesium Hydroxide (Milk Of Magnesia) 30 ml PO Q6H PRN PRN Reason: Constipation Stop: 06/04/19 13:39 Methocarbamol (Robaxin) 500 mg PO TID PRN PRN Reason: Pain Stop: 06/04/19 13:39 Last Admin: 05/07/19 08:32 Dose: 500 mg Documented by: Mirabegron (Myrbetriq Er) 50 mg PO DAILY [facility] Stop: 06/05/19 08:59 Last Admin: 05/08/19 08:40 Dose: 50 mg Documented by: Multivitamins (Multivitamin Tab) 1 tab PO QAM [facility] Stop: 06/05/19 08:59 Last Admin: 05/08/19 08:39 Dose: 1 tab Documented by: Ondansetron HCl (Zofran) 4 mg IV Q6H PRN PRN Reason: Nausea Stop: 06/04/19 13:39 Polyethylene Glycol (Miralax Powder Packet) 17 gm PO DAILY PRN PRN Reason: Constipation Stop: 06/04/19 13:39 Psyllium Hydrophilic Mucilloid (Metamucil) 4 pkt PO DAILY [facility] Stop: 06/05/19 08:59 Last Admin: 05/08/19 08:42 Dose: Not Given Documented by: Ranitidine HCl (Zantac) 150 mg PO HS [facility] Stop: 06/04/19 20:59 Last Admin: 05/07/19 20:47 Dose: 150 mg Documented by: Senna/Docusate Sodium (Senokot S) 1 tab PO DAILYBL PRN PRN Reason: Constipation Stop: 06/04/19 13:39 Vitamin B Complex (Vitamin B Complex) 1 tab PO DAILY [facility] Stop: 06/05/19 08:59 Last Admin: 05/08/19 08:41 Dose: 1 tab Documented by: Vitamin D (Vitamin D3) 400 units PO DAILY [facility] Stop: 06/05/19 08:59 Last Admin: 05/08/19 08:41 Dose: 400 units Documented by: PG Care Time/CCT Total # of Minutes Spent Total Time Spent with Patient: Total time spent is greater than 50% in coordination of care (as documented) at patient's floor/unit and/or counseling patient: Resident Activity Tracking Resident Involvement: Resident Care Provided Care Provided: Adult Hospital Medicine (1) Head injury Encounter type: initial encounter Qualified Code(s): S09.90XA - Unspecified injury of head, initial encounter
--- NOTE | 2019-05-08 16:55 | Discharge Summary ---
Date of Service May 08, 2019 Admission HPI Per Admitting Provider 73 y/o with PMH HTN, Hypothyroidism, GERD, Depression, Stroke presents from [facility] where pt reportedly had a fall in early AM. Pt states that she fell when she got out of bed because it was dark and she tripped on something and fell forward and landed onto R side. Pt was unable to call for help and reported that she was found around 7AM. Notes that she does fall frequently, but unsure of last occurrence or why/how she fell. Pt denies any associated lightheadedness, dizzyness prior to fall. Also denies LOC, numbness/tingling, CP, SOB, palpitations, or any urinary sxs. Has associated R sided BERGERON at present. In ER, concern that pt has altered mentation from baseline. Pt states that she feels like she is at baseline in terms of mentation, but notes that she does have some difficulty finding the right words. In calling [facility], it is noted that pt is at baseline in terms of speech and cognition. She has apparently been this way since 2018 s/p stroke. Pt notes that started medication Mirabegron 50 mg daily a few weeks ago, but otherwise no other new medications or dose changes. Additionally notes feeling under the weather last two days with increased N/V and decreased appetite in that duration. In ER, CT Neck/Head was unremarkable. CXR normal. EKG showed sinus rhythm with fusion complexes, which are new compared to Jul 2018 comparison. Labs: CBC/CMP unremarkable. Trop 0.054. UA: 2+ LE, >30 WBCs. Social Hx- Unremarkable Family Hx- Unremarkable. Pt denies any h/o neurological dx's/delirium/dementia Surg Hx- Arthoplasty R/L ankles. Otherwise unremarkable. Admission Exam Per Admitting Provider Constitutional: WD/WN, vitals as above Eyes: PERRL, conjunctivae normal, anicteric sclerae ENMT: external ear and nose normal, oropharynx normal Respiratory: normal respiratory effort, lungs clear to auscultation Cardiovascular: RRR, no murmur, no edema Gastrointestinal (Abdomen): mild tenderness abd , no guarding/rebound Skin: R forehead laceration at hairline Neurologic: No focal deficits. CN2-12 grossly intact. Strength/Sensation intact. Psychiatric: A+Ox3, euthymic affect Principal Diagnosis Altered Mental Status Discharge Exam General: Alert, orientedx2. No acute distress HEENT: NC, right sided stapled scalp laceration, PERRLA, EOMI, oropharynx moist. Chest: Nontender to palpation. CV: RRR, Normal s1, s2. Resp: Breath sounds clear bilaterally, no increased effort of breathing. No crackles/rhonchi/rales. Abdomen: Soft, nontender, nondistended. No guarding. No organomegaly appreciated. Extremities: No edema. Discharge Data Allergies Allergy/AdvReac Type Severity Reaction Status Date / Time erythromycin base Allergy Intermediate GASTRIC Verified 05/05/19 07:59 INFLAMATION rofecoxib Allergy Intermediate GASTRIC Verified 05/05/19 07:59 INFLAMATION Consultations 05/05/19 10:04 ED Decision to Admit Stat 05/06/19 15:09 Consult Case Management - Discharge Planning Routine Ordered Studies 05/05/19 07:48 CT cervical spine wo con Stat CT head/brain wo con Stat Hospital Course (1) Head injury: 73 y/o with PMH HTN, Hypothyroidism, GERD, Depression, Stroke (March 2018) who presented after a mechanical fall at [facility]. Admitted out of concern for AMS. Currently at baseline mentally on discharge. PT/OT done while hospitalized strongly suggested acute rehab or prison facility was necessary. However, family opted to take her back to her residence at [facility] without rehab. Admitted on May 03 and discharged on May 09, 2019. AMS/Fall -pt currently at baseline per daughter and nursing student at [facility]. At baseline on discharge. -fall likely mechanical as pt does not like lights on -Completed course of empiric Bactrim treatment for UTI while hospitalized. -CT Head showed chronic small vessel ischemic change. No acute intracranial abnormality -Labs unremarkable. EKG NSR w/ fusion complexes, likely artifactual -no cardiac etiology likely given lack of symptoms. -Close PCP followup strongly recommended. Elevated Trop -no concern for any cardiac etiology. -Likely related to LVH causing chronic low grade leak -continued monitoring recommended. HTN -cont losartan 50 h/o Stroke -cont atorvastatin 40, clopidogrel 75 Depression -cont fluoxetine 20 Hypothyroidism -TSH WNL -cont levothyroxine 100 mcg Bladder Spasms -Cont myrbetriq 50 mg. Unlikely to be contributing to AMS GERD -cont ranitidine 150 Total Time Total Time Spent Total Time Spent (In Minutes): 60 Discharge Plan Discharge Items Patient Disposition: Personal Nursing Home Reason For Visit: ams Discharge Diagnosis: AMS Discharge Goals: Increase independence Activity: Per 'Additional Instructions' section Non-emergency contact: Primary Care Provider Call non-emergency contact if: you have any medication questions and your symptoms worsen Follow-up/Referrals: [facility]AD[facility] [Primary Care Provider] - Diet: Heart Healthy Add Provider Instructions: 73 y/o with PMH HTN, Hypothyroidism, GERD, Depression, Stroke (March 2018) presents after fall at [facility] and now has concerns for AMS. AMS/Fall -Pt at baseline -PT/OT- recommended short-term rehab/prison facility placement; However, per family returning to [facility]. -CT Head: Chronic small vessel ischemic change. No acute intracranial abnormality -Labs unremarkable. EKG NSR w/ fusion complexes, likely artifact - Cx: gram neg bacilli -recent med change myrbetriq unlikely to be contributing -In speaking with Nurse Coordinator at [facility], pt's appears at baseline in terms of speech and memory. Noted to be this way since stroke in 2018. Daughter agrees. -This is likely 2/2 fall and trip 2/2 lack of ability to see given lack of nightlighting in room -no cardiac etiology likely given lack of sxs Elevated Trop -no concern for any cardiac etiology. Repeat trop about the same. Likely related to LVH causing chronic low grade leak HTN -cont losartan 50 h/o Stroke -cont atorvastatin 40, clopidogrel 75 Depression -cont fluoxetine 20 Hypothyroidism -TSH WNL -cont levothyroxine 100 mcg Bladder Spasms -Cont myrbetriq 50 mg. Unlikely to be contributing to AMS GERD -cont ranitidine 150 Prescriptions: Continued multivitamin Tablet 1 tab PO QAM RF: 0 losartan [Cozaar] 50 mg tablet 50 mg PO DAILY RF: 0 levothyroxine [Synthroid] 100 mcg tablet 100 mcg PO DAILY RF: 0 vitamin B complex Tablet 1 tab PO DAILY RF: 0 cholecalciferol (vitamin D3) [Vitamin D3] 400 unit Tablet 400 unit PO DAILY RF: 0 psyllium husk [Fiber-Caps (psyllium husk)] 0.52 gram Capsule 4 cap PO DAILY RF: 0 clopidogrel 75 mg Tablet 75 mg PO QAM Qty: 30 RF: 0 ranitidine HCl 150 mg capsule 150 mg PO HS Qty: 30 RF: 0 acetaminophen [Tylenol Extra Strength] 500 mg Tablet 500 mg PO Q4H PRN (Reason: Pain) RF: 0 allopurinol 300 mg tablet 300 mg PO DAILY RF: 0 fluoxetine 20 mg capsule 20 mg PO DAILY RF: 0 docusate sodium 100 mg Tablet 100 mg PO DAILY RF: 0 Myrbetriq 50 mg tablet extended release 24 hr 50 mg PO DAILY RF: 0 atorvastatin 40 mg Tablet 40 mg PO DAILY RF: 0 methocarbamol 500 mg Tablet 500 mg PO TID PRN (Reason: Pain) RF: 0 sennosides-docusate sodium [Senna-S] 8.6-50 mg Tablet 1 tab PO DAILYBL PRN (Reason: Constipation) RF: 0 polyethylene glycol 3350 17 gram/dose Powder 17 g PO DAILY PRN (Reason: Constipation) RF: 0 Discontinued sulfamethoxazole-trimethoprim 800-160 mg tablet 1 tab PO BID RF: 0 Stand-Alone Forms: [employer] [facility] [employer]/Other Patient Handouts: ED Mechanical Fall Discharge Orders: Discharge Order (Routine); Ordered 05/08/19 Ordered By: Anjali Nicole Admission Data Admit Date/Time: 05/05/19 11:52 Attending Provider: Harlan Garcia Admit Provider: Yuriy Steen Primary Care Provider: [facility] ANN Other Providers: Carlos Rodrigues Service: Medical Other Interventions: Discharge Summary Assessment (RN) Last Done: 05/08/19 12:15 DC Date/Time DO NOT enter until pt leaves facility: 05/08/19 13:49 Supervising Physician Co-Signing Physician Notes Attending attestation Pt seen and examined in concert with Dr. Nicole. In agreement with the documented findings as noted in the resident documentation with any exceptions or additions as noted here. No acute complaints at present or overnight. Difficulty with orientation but AA Ox3. On examination, S1/S2 nl RRR no MCG. CTAB. Abd NT/ND BS+ve Ambulatory dysfunction, chronic, with mechanical fall - patient would benefit from rehab, though family wishes return to [facility] and outpatient PT. Else see resident documentation as noted. Resident Activity Tracking Resident Involvement: Resident Care Provided Care Provided: Adult Hospital Medicine
== END 2019-05-08 13:49 | disposition home or self-care (01) | DRG 914 ==
LOC: ED 07:40 → INTOOBSV 11:52 → 2N 11:52 → SUATTDRO 12:33 → OBSVTOIN 12:33 → 2N 12:34
DX: Y92.89 Other specified places as the place of occurrence of the external cause; F32.9 Major depressive disorder, single episode, unspecified; Z96.662 Presence of left artificial ankle joint; I10 Essential (primary) hypertension; S01.01XA Laceration without foreign body of scalp, initial encounter; Z86.73 Personal history of transient ischemic attack (TIA), and cerebral infarction without residual deficits; Z96.661 Presence of right artificial ankle joint; R79.89 Other specified abnormal findings of blood chemistry; Y93.01 Activity, walking, marching and hiking; S09.8XXA Other specified injuries of head, initial encounter; N32.89 Other specified disorders of bladder; Z79.02 Long term (current) use of antithrombotics/antiplatelets; E03.9 Hypothyroidism, unspecified; K21.9 Gastro-esophageal reflux disease without esophagitis; W19.XXXA Unspecified fall, initial encounter

== ENCOUNTER 2021-09-18 14:48 | Observation (INO) ==
[2021-09-18 17:06] LABS: Basophils # (auto) 0.03 K/uL (0-0.2); Basophils % (auto) 0.3 %; Eosinophils # (auto) 0.23 K/uL (0-0.5); Eosinophils % (auto) 2.1 %; Hematocrit (blood only) 37.5 % (37-47); Hemoglobin 12.6 g/dL (12.0-16.0); Immature Granulocytes # (auto) 0.07 K/uL (0.00-0.02); Immature Granulocytes % (auto) 0.6 %; Lymphocytes # (auto) 2.03 K/uL (1.2-3.4); Lymphocytes % (auto) 18.8 %; Mean Corpuscular Hgb Conc 33.6 g/dL (32-36); Mean Corpuscular Volume 92.4 fL (80-100); Mean Platelet Volume 8.6 fL (7.4-10.4); Monocytes % (auto) 13.9 %; Neutrophils # (auto) 6.94 K/uL (1.4-6.5); Neutrophils % (auto) 64.3 %; Platelet Count 347 K/uL (130-400); RDW Standard Deviation 54.4 fL (36.4-46.3); Red Blood Count 4.06 M/uL (4.2-5.4)
[2021-09-18 17:40] LABS: Albumin Globulin Ratio 0.7 (0.9-2); Bilirubin,Total 0.5 mg/dl (0.2-1); Est GFR (African American) 97.3 ml/min; Globulin 4.5 gm/dl (2.5-4.0); Total Protein 7.5 gm/dl (6.4-8.2)
[2021-09-18] MEDS ORDERED: fentaNYL citrate 100 MCG/2 ML VIAL IV STA (20:22)
[2021-09-18] MEDS ORDERED: SODIUM CHLORIDE 0.9% 1000ML 500 ML IV ONE (20:22)
[2021-09-18] MEDS ORDERED: PIPERACILL/TAZOBAC CONSULT ACTIVE PRN (20:29)
[2021-09-18] MEDS ORDERED: PIPERACILLIN/TAZOBACTAM 4.5 GM/120 ML BAG IV ONE (20:29)
--- NOTE | 2021-09-18 20:33 | Emergency Department Note ---
Impression & Plan Diverticulitis, Hematochezia ED Provider Note Provider: Agustín Ceja MD DATE OF SERVICE: 09/18/2021 CHIEF COMPLAINT: Abdominal pain, bloody diarrhea HISTORY OF PRESENT ILLNESS: Patient is a 76-year-old female history of CVA, hypothyroidism, CAD, and hypertension presenting today due to developing worsening lower abdominal pain predominantly in the mid to left lower quadrant for approximately the past 2 days. Was seen by myself on Tuesday after syncopal event and during that evaluation was diagnosed with diverticulitis. States she has been taking the Augmentin (last this morning) without issue. States she developed over the last several days some diarrhea prickly worsened today with blood and significant pain. Pain abated over the last several hours since around noon when she came here to wait. Patient states the pain has begun again and she had a rather large diarrheal loose bloody bowel movement upon arrival to the room this evening. Patient denies any nausea or vomiting. Patient states has not had much to eat or drink today. Ports some chills but denies any fever denies any chest pain or shortness of breath. Reports little bit of pain in the anterior aspect of right knee but has been walking on it. Denies any recurrent episodes of falls. Patient states has been sometime since he has had any diverticular issues. Patient states she has been on her home medication which by records includes Plavix. REVIEW OF SYSTEMS: A total of 10 review of systems was obtained and negative except as stated above in the HPI. PAST MEDICAL HISTORY: As noted above MEDICATIONS: Reviewed home medications SOCIAL HISTORY: Lives at home PHYSICAL EXAM: GENERAL: alert and oriented in no acute distress on stretcher Head: normocephalic and atraumatic EYES: No injection, discharge or icterus. NECK: Trachea midline. ENT: Mucous membranes pink and moist. LUNGS: Airway patent. No retractions. Breath sounds clear HEART: Regular rate and rhythm. No chest wall tenderness ABDOMEN: Soft with guarding and tenderness in the left lower quadrant. SKIN: Acyanotic, warm, dry, without rashes EXTREMITIES: With mild bilateral trace to 1+ edema. Healed surgical scar of the right knee with slight tenderness in the patellar aspect but no obvious deformity or crepitus appreciated. No significant contusion or erythema noted. NEUROLOGICAL: No focal deficits. No aphasia. No facial droop or slurred speech. Ambulatory. EK bpm normal sinus rhythm. No PVC or PAC. No acute ST segment elevation or depression with a QTC of 465. CONTINUOUS CARDIAC MONITORING: was ordered and showed a heart rate of bpm in normal sinus rhythm Patient's laboratory studies and imaging reviewed. Differential includes Appendicitis, infections, diverticulitis, UTI, obstruction, mesenteric ischemia, aortic pathology, inflammatory bowel disease, renal colic, PUD, pancreatitis, biliary pathology, hernia, volvulus, constipation, as well as other pathologies. IMPRESSION/MEDICAL DECISION MAKING: Patient with some continued right knee pain given the fall and x-rays obtained here without significant findings. Likely more musculoskeletal. Question worsening diverticular disease as her main process of complaint. Blood work here is somewhat reassuring with a slightly improved white blood cell count and no evidence of acute hepatitis or pancreatitis grossly evident. Lower suspicion this is ACS but EKG and troponin were sent. Given her worsening pain and now bloody diarrhea CT scan of the abdomen pelvis will be completed to evaluate for worsening of her diverticular inflammation that was seen the beginning of the week. Patient is on Plavix with may be contributing. Blood counts has not dropped significantly and she is not hypotensive or tachycardic but obviously somewhat of a concern given her age and her discomfort with the bloody diarrhea and worsening pain. Empirically given a dose of Zosyn here for slightly broader coverage while awaiting additional work-up. Given small amount of fentanyl for pain. CT scan shows consistent diverticulitis slight vascular enhancement without perforation or abscess formation. Discussed with the patient findings Given her worsening clinical exam after several days of outpatient antibiotics now with some bloody diarrhea feel that further observation and IV antibiotics are prudent. The hospitalist was contacted. The daughter was updated with the patient's permission via phone. DIAGNOSIS: Acute diverticulitis, bloody diarrhea DISPOSITION: Hospitalist will evaluate Patient was agreeable with this plan. Past Med/Surg History Medical History Arthritis Constipation Depression GERD (gastroesophageal reflux disease) HTN (hypertension) Hypothyroidism Metabolic encephalopathy Stroke Surgical History H/O: hysterectomy History of arthroplasty of left ankle History of arthroplasty of right ankle History of arthroscopic knee surgery History of colonoscopy History of surgery on wrist Status post breast reduction Family History Mother Diabetes Hypertension Cardiac disorder Brother Cancer Father Myocardial infarction Other Family history non-contributory Denies family history of Ovarian cancer Prostate cancer Breast cancer Lung cancer Social History Smoking Status: Never smoker Second Hand Exposure: No; Hx Alcohol Use: No Hx Substance Use: No Preferred Language: Trinidadian Communication Ability: Impaired Visual Impairment: Partially Limited Hearing Ability: Use of Hearing Aid String Top Sealer Required: No Beliefs That Will Affect Care: None marital status: Current Living Situation: Alone and Spouse Current Living Situation Comment: [facility] since stroke, Jul, 2018 spouse in [place] current occupational status: retired How many Children do You have: 3 Feels Safe at Home: Yes Childhood Exposure to Second-Hand Smoke: Yes caffeine: Yes Dental Care, Regularly: Yes Physical Activity Frequency: Does not Exercise Seatbelt Use: always Sunscreen Use: Yes Assistive Devices: None Allergies Allergies Allergy/AdvReac Type Severity Reaction Status Date / Time erythromycin base Allergy Intermediate GASTRIC Verified 04/21/21 09:24 INFLAMATION rofecoxib Allergy Intermediate GASTRIC Verified 04/21/21 09:24 INFLAMATION Home Meds Home Medications Medication Instructions Recorded Confirmed aspirin 81 mg capsule 81 mg PO DAILY 09/18/21 09/18/21 clopidogrel 75 mg tablet (Plavix) 75 mg PO DAILY 09/18/21 09/18/21 Previous Rx's Medication Instructions Recorded cholecalciferol (vitamin D3) 10 400 unit PO DAILY #90 tab 10/06/20 mcg (400 unit) tablet (Vitamin D3) multivitamin 1 tab PO QAM #90 tab 10/06/20 atorvastatin 40 mg tablet 40 mg PO DAILY #90 tab 11/18/20 fluoxetine 20 mg capsule 20 mg PO DAILY #90 cap 11/18/20 levothyroxine 100 mcg tablet 100 mcg PO DAILY #90 tab 11/18/20 (Synthroid) trospium 20 mg tablet 20 mg PO BID 90 Days #180 tab 12/08/20 mirabegron 50 mg tablet,extended 50 mg PO DAILY #90 tab 01/09/21 release 24 hr (Myrbetriq) losartan 25 mg tablet 25 mg PO DAILY #90 tab 04/21/21 allopurinol 300 mg tablet 300 mg PO DAILY #90 tab 04/24/21 Results & Data (ED) Vital Signs Vital Signs - 24 hr 09/18/21 14:53 09/18/21 20:24 09/18/21 23:40 Temperature 36.5 C Temperature Source Temporal Artery Scan Pulse Rate 88 Pulse Rate [Finger] 85 83 Pulse Rhythm Regular Pulse Rhythm [Finger] Regular Respiratory Rate 20 20 Respiratory Effort / Characteristics Non-Labored Spontaneous Non-Labored Respiratory Depth Normal Normal Respiratory Pattern Regular Regular Blood Pressure 146/85 H Blood Pressure [Right Arm] 147/87 H 143/88 H Blood Pressure Mean 105 Blood Pressure Mean [Right Arm] 107 106 Blood Pressure Position Sitting Blood Pressure Position [Right Arm] Lying Pulse Oximetry 97 99 96 Oxygen Delivery Method Room Air Room Air Room Air Sepsis Recent Fever Within 48 Hours No Sepsis New/Unexplained Change in Mental Status N/A Sepsis Action Taken by Nursing No Action Required 09/19/21 01:21 Temperature Temperature Source Pulse Rate Pulse Rate [Finger] 86 Pulse Rhythm Pulse Rhythm [Finger] Respiratory Rate Respiratory Effort / Characteristics Respiratory Depth Respiratory Pattern Blood Pressure Blood Pressure [Right Arm] 129/82 Blood Pressure Mean Blood Pressure Mean [Right Arm] 97 Blood Pressure Position Blood Pressure Position [Right Arm] Pulse Oximetry 96 Oxygen Delivery Method Room Air Sepsis Recent Fever Within 48 Hours Sepsis New/Unexplained Change in Mental Status Sepsis Action Taken by Nursing Laboratory Data Result diagrams: 09/18/21 16:55 09/18/21 21:09 Lab Results 09/18/21 09/18/21 09/18/21 Range/Units 16:55 16:55 21:09 WBC 10.80 (4.8-10.8) K/uL RBC 4.06 L (4.2-5.4) M/uL Hgb 12.6 (12.0-16.0) g/dL Hct 37.5 (37-47) % MCV 92.4 (80-100) fL MCH 31.0 (25-34) pg MCHC 33.6 (32-36) g/dL RDW Std Deviation 54.4 H (36.4-46.3) fL RDW Coeff of Jovani 16.0 H (11.5-14.5) % Plt Count 347 (130-400) K/uL MPV 8.6 (7.4-10.4) fL Immature Gran % (Auto) 0.6 % Neut % (Auto) 64.3 % Lymph % (Auto) 18.8 % [place] % (Auto) 13.9 % Eos % (Auto) 2.1 % Baso % (Auto) 0.3 % Neut # (Auto) 6.94 H (1.4-6.5) K/uL Lymph # (Auto) 2.03 (1.2-3.4) K/uL [place] # (Auto) 1.50 H (0.11-0.59) K/uL Eos # (Auto) 0.23 (0-0.5) K/uL Baso # (Auto) 0.03 (0-0.2) K/uL Immature Gran # (Auto) 0.07 H (0.00-0.02) K/uL Sodium 134 L (136-145) mmol/L Potassium 3.6 (3.5-5.1) mmol/L Chloride 105 (98-107) mmol/L Carbon Dioxide 21 (21-32) mmol/L Anion Gap 9.0 (3-11) BUN 9 (7-18) mg/dl Creatinine 0.69 (0.6-1.2) mg/dl Est Cr Clr Drug Dosing 78.0 ml/min Est GFR ( Amer) 97.3 ml/min Est GFR (Non-Af Amer) 84.0 ml/min BUN/Creatinine Ratio 13.0 (10-20) Glucose 89 (70-99) mg/dl Calcium 9.0 (8.5-10.1) mg/dl Total Bilirubin 0.5 (0.2-1) mg/dl AST 8 L (15-37) U/L ALT 17 (12-78) U/L Alkaline Phosphatase 100 (45-117) U/L Troponin I < 0.015 (0-0.045) ng/ml Total Protein 7.5 (6.4-8.2) gm/dl Albumin 3.0 L (3.4-5.0) gm/dl Globulin 4.5 H (2.5-4.0) gm/dl Albumin/Globulin Ratio 0.7 L (0.9-2) Lipase 92 (73-393) U/L COVID-19 Eval Order SARS-CoV-2 (PCR) (Negative) 09/18/21 09/18/21 Range/Units 23:00 23:00 WBC (4.8-10.8) K/uL RBC (4.2-5.4) M/uL Hgb (12.0-16.0) g/dL Hct (37-47) % MCV (80-100) fL MCH (25-34) pg MCHC (32-36) g/dL RDW Std Deviation (36.4-46.3) fL RDW Coeff of Jovani (11.5-14.5) % Plt Count (130-400) K/uL MPV (7.4-10.4) fL Immature Gran % (Auto) % Neut % (Auto) % Lymph % (Auto) % [place] % (Auto) % Eos % (Auto) % Baso % (Auto) % Neut # (Auto) (1.4-6.5) K/uL Lymph # (Auto) (1.2-3.4) K/uL [place] # (Auto) (0.11-0.59) K/uL Eos # (Auto) (0-0.5) K/uL Baso # (Auto) (0-0.2) K/uL Immature Gran # (Auto) (0.00-0.02) K/uL Sodium (136-145) mmol/L Potassium (3.5-5.1) mmol/L Chloride (98-107) mmol/L Carbon Dioxide (21-32) mmol/L Anion Gap (3-11) BUN (7-18) mg/dl Creatinine (0.6-1.2) mg/dl Est Cr Clr Drug Dosing ml/min Est GFR ( Amer) ml/min Est GFR (Non-Af Amer) ml/min BUN/Creatinine Ratio (10-20) Glucose (70-99) mg/dl Calcium (8.5-10.1) mg/dl Total Bilirubin (0.2-1) mg/dl AST (15-37) U/L ALT (12-78) U/L Alkaline Phosphatase (45-117) U/L Troponin I (0-0.045) ng/ml Total Protein (6.4-8.2) gm/dl Albumin (3.4-5.0) gm/dl Globulin (2.5-4.0) gm/dl Albumin/Globulin Ratio (0.9-2) Lipase (73-393) U/L COVID-19 Eval Order Covid19 at [facility] SARS-CoV-2 (PCR) NEGATIVE (Negative) Administered Medications Discontinued Medications Fentanyl Citrate (Fentanyl Citrate 100 Mcg/2 Ml Vial) 50 mcg IV NOW STA Stop: 09/18/21 20:23 Last Admin: 09/18/21 20:43 Dose: 50 mcg Documented by: [id number] Sodium Chloride (Nss 1000ml) 500 mls @ 999 mls/hr IV .Q31M ONE Stop: 09/18/21 20:52 Last Infusion: 09/18/21 21:58 Dose: 0 mls/hr Documented by: [id number] Admin: 09/18/21 20:44 Dose: 999 mls/hr Documented by: [id number] Piperacillin Sod/Tazobactam Sod (Zosyn) 4.5 gm in 120 mls @ 240 mls/hr IV NOW ONE Stop: 09/18/21 20:58 Last Infusion: 09/18/21 23:41 Dose: 0 mls/hr Documented by: [id number] Admin: 09/18/21 22:13 Dose: 240 mls/hr Documented by: [id number] Ioversol (Optiray 320 100ml) 92 ml IV ONCE ONE Stop: 09/18/21 21:56 Last Admin: 09/18/21 22:00 Dose: 92 ml Documented by: [id number] Imaging Data Radiologist's Impression: Abdomen/Pelvis CT 09/18/21 20:11 CT abd pelvis IV con only CLINICAL HISTORY: abd pain, bloody stools on abx, worsening diverti? TECHNIQUE: Helical axial images of the abdomen and pelvis were obtained and displayed. Automated dose lowering techniques and/or adjustment according to patient size were utilized for this exam. This exam was performed with in travenous contrast. COMPARISON: Comparison is made to CT abdomen pelvis 09/14/2021 FINDINGS: Lower chest: No acute abnormality Liver: Multiple hepatic hypodensities are seen which likely represent cysts. Gallbladder and biliary tree: No calcified gallstones. Normal caliber wall. No intra- or extrahepatic biliary ductal dilation. Pancreas: Unremarkable, no focal lesions. Spleen: Unremarkable. Adrenals: Unremarkable. Kidneys and ureters: Bilateral extrarenal pelvis is seen. No hydronephrosis or hydroureter is seen. Bladder: Unremarkable. Reproductive organs: Multiple calcifications are seen in the uterine body which may represent fibroids. Postsurgical changes are seen about the uterus. Bowel: Extensive diverticulosis is seen increased vascularity in the sigmoid colon is again seen compatible with acute diverticulitis. Lymph nodes Retroperitoneal: Subcentimeter lymph nodes are noted. Mesenteric: Subcentimeter mesenteric nodes are seen most prominent in the right lower quadrant and left lower quadrant. Pelvic: Unremarkable. Peritoneum: Unremarkable. Vessels: Atherosclerotic calcifications are seen. Abdominal wall: Bilateral fat-containing inguinal hernias are seen. Bones: Degenerative changes in the visualized spine. IMPRESSION: 1. Findings are compatible with continued acute sigmoid diverticulitis without evidence of abscess or perforation. 2. Additional findings as above. ACT 112: Negative or not required by law. Electronically signed by: Jaswant Estes M.D. 09/18/2021 10:16 PM Knee X-Ray 09/18/21 20:11 XR knee RT 3V CLINICAL HISTORY: pain , s/p fall TECHNIQUE: 3 views of the right knee were obtained. Comparison: None available at the time of this dictation. FINDINGS: Total knee arthroplasty is seen. No perihardware lucency or hardware fracture is noted. The alignment is anatomic. Joint spaces are well-preserved. No joint effusion is seen. No soft tissue abnormality is seen. IMPRESSION: No evidence of acute osseous injury. ACT 112: Negative or not required by law. Electronically signed by: Jaswant Estes M.D. 09/18/2021 8:41 PM Discharge Plan Visit Data Chief Complaint: GI Assessment Stated Complaint: DIVERTICULITIS ED Provider: Agustín Ceja Discharge Problem: Diverticulitis, Hematochezia Patient Disposition: Being Evaluated by Hospitalist Forms Stand Alone Forms: [facility] Prescriptions Prescriptions: No Action cholecalciferol (vitamin D3) [Vitamin D3] 10 mcg (400 unit) tablet 400 unit PO DAILY Qty: 90 RF: 3 multivitamin Tablet 1 tab PO QAM Qty: 90 RF: 3 fluoxetine 20 mg capsule 20 mg PO DAILY Qty: 90 RF: 3 atorvastatin 40 mg tablet 40 mg PO DAILY Qty: 90 RF: 3 levothyroxine [Synthroid] 100 mcg tablet 100 mcg PO DAILY Qty: 90 RF: 3 Myrbetriq 50 mg tablet extended release 24 hr 50 mg PO DAILY Qty: 90 RF: 3 allopurinol 300 mg tablet 300 mg PO DAILY Qty: 90 RF: 3 trospium 20 mg tablet 20 mg PO BID 90 Days Qty: 180 RF: 3 losartan 25 mg tablet 25 mg PO DAILY Qty: 90 RF: 3 clopidogrel [Plavix] 75 mg Tablet 75 mg PO DAILY RF: 0 aspirin 81 mg Capsule 81 mg PO DAILY RF: 0 Referrals Referrals: Meño Johnson MD [Primary Care Provider] -
--- NOTE | 2021-09-18 20:42 | XRay Report ---
XR knee RT 3V CLINICAL HISTORY: pain , s/p fall TECHNIQUE: 3 views of the right knee were obtained. Comparison: None available at the time of this dictation. FINDINGS: Total knee arthroplasty is seen. No perihardware lucency or hardware fracture is noted. The alignment is anatomic. Joint spaces are well-preserved. No joint effusion is seen. No soft tissue abnormality is seen. IMPRESSION: No evidence of acute osseous injury. ACT 112: Negative or not required by law. Electronically signed by: Jaswant Estes M.D. 09/18/2021 8:41 PM
[2021-09-18 21:45] LABS: Potassium 3.6 mmol/L (3.5-5.1)
[2021-09-18 21:55] LABS: Aspartate Aminotransferase 8 U/L (15-37); Troponin I < 0.015 ng/ml (0-0.045)
[2021-09-18] MEDS ORDERED: OPTIRAY 320 100ml IV ONE (21:55)
--- NOTE | 2021-09-18 22:17 | CT Scan Report ---
CT abd pelvis IV con only CLINICAL HISTORY: abd pain, bloody stools on abx, worsening diverti? TECHNIQUE: Helical axial images of the abdomen and pelvis were obtained and displayed. Automated dose lowering techniques and/or adjustment according to patient size were utilized for this exam. This e xam was performed with intravenous contrast. COMPARISON: Comparison is made to CT abdomen pelvis 09/14/2021 FINDINGS: Lower chest: No acute abnormality Liver: Multiple hepatic hypodensities are seen which likely represent cysts. Gallbladder and biliary tree: No calcified gallstones. Normal caliber wall. No intra- or extrahepatic biliary ductal dilation. Pancreas: Unremarkable, no focal lesions. Spleen: Unremarkable. Adrenals: Unremarkable. Kidneys and ureters: Bilateral extrarenal pelvis is seen. No hydronephrosis or hydroureter is seen. Bladder: Unremarkable. Reproductive organs: Multiple calcifications are seen in the uterine body which may represent fibroid s. Postsurgical changes are seen about the uterus. Bowel: Extensive diverticulosis is seen increased vascularity in the sigmoid colon is again seen comp atible with acute diverticulitis. Lymph nodes Retroperitoneal: Subcentimeter lymph nodes are noted. Mesenteric: Subcentimeter mesenteric nodes are seen most prominent in the right lower quadrant and le ft lower quadrant. Pelvic: Unremarkable. Peritoneum: Unremarkable. Vessels: Atherosclerotic calcifications are seen. Abdominal wall: Bilateral fat-containing inguinal hernias are seen. Bones: Degenerative changes in the visualized spine. IMPRESSION: 1. Findings are compatible with continued acute sigmoid diverticulitis without evidence of abscess o r perforation. 2. Additional findings as above. ACT 112: Negative or not required by law. Electronically signed by: Jaswant Estes M.D. 09/18/2021 10:16 PM
--- NOTE | 2021-09-18 23:52 | History & Physical Report ---
Date of Service September 18, 2021 Assessment & Plan (1) Diverticulitis: (2) Lower GI bleed: (3) Gastroesophageal reflux disease: (4) Depression: (5) Hypothyroidism: (6) CAD (coronary artery disease): Plan: 76 yo F Hx CAD, HTN, CVA, GERD, depression, hypothyroidism admitted for diverticulitis and lower GI bleed. Diverticulitis, lower GI bleed: Diagnosed with diverticulitis on 09/14 and started on Augmentin. Today with worsening abdominal pain and moderate amount of bright red blood in stools (diarrhea). Stool culture and WBCs ordered. Patient was started on Zosyn, will continue. Bleed likely diverticular given diagnosis of diverticulitis. Defer GI consult, however would do so if patient's Hgb were to precipitously drop requiring colonoscopy. Will need colonoscopy follow up in outpatient once acute diverticular illness resolves. Patient consented for blood should she need a transfusion. Vitals stable. CBC in AM. CAD, HTN: History of. Holding aspirin and Plavix in the setting of lower GIB. Continue statin, losartan. Hypothyroidism: Continue levothyroxine. Depression: Continue fluoxetine. Code Status: DNR/DNI FEN: Full liquid, heart healthy DVT ppx: SCDs, no medical ppx given GIB Dispo: Med/Surg with Telemetry History of Present Illness Chief Complaint: abdominal pain, BRBPR Primary Care Provider: Meño Johnson MD 76 yo F Hx CAD, HTN, CVA, GERD, depression presented to the ER for abdominal pain. She was diagnosed incidentally with diverticulitis on 09/14 on CTAP after a fall. She was treated with Augmentin, which she has been taking without missed pills. Reports that over the last two days she has been developing worsening abdominal pain, and today she had several episodes of diarrhea with moderate amount of bright red blood. She denies chest pain, SOB, nausea or vomiting, fevers or chills. She does endorse some lightheadedness today with standing up. She does not endorse previous history of GI bleed. She reports that if she required blood she would want it, but she does not want intubation nor chest compressions. In the ER patient had stable normal vitals. Hgb 12.6 (12.8 on 09/14), Na 134, lipase normal, creatinine normal, troponin negative, COVID 19 negative. Repeat CTAP again showed sigmoid diverticulitis without perforation or abscess.She was started on Zosyn. Allergies Allergy/AdvReac Type Severity Reaction Status Date / Time erythromycin base Allergy Intermediate GASTRIC Verified 04/21/21 09:24 INFLAMATION rofecoxib Allergy Intermediate GASTRIC Verified 04/21/21 09:24 INFLAMATION Home Medications Medication Instructions Recorded Confirmed Type cholecalciferol (vitamin D3) 10 400 unit PO DAILY #90 tab 10/06/20 09/18/21 Rx mcg (400 unit) tablet (Vitamin D3) multivitamin 1 tab PO QAM #90 tab 10/06/20 09/18/21 Rx atorvastatin 40 mg tablet 40 mg PO DAILY #90 tab 11/18/20 09/18/21 Rx fluoxetine 20 mg capsule 20 mg PO DAILY #90 cap 11/18/20 09/18/21 Rx levothyroxine 100 mcg tablet 100 mcg PO DAILY #90 tab 11/18/20 09/18/21 Rx (Synthroid) trospium 20 mg tablet 20 mg PO BID 90 Days #180 tab 12/08/20 09/18/21 Rx mirabegron 50 mg tablet,extended 50 mg PO DAILY #90 tab 01/09/21 09/18/21 Rx release 24 hr (Myrbetriq) losartan 25 mg tablet 25 mg PO DAILY #90 tab 04/21/21 04/21/21 Rx allopurinol 300 mg tablet 300 mg PO DAILY #90 tab 04/24/21 09/18/21 Rx clopidogrel 75 mg tablet (Plavix) 75 mg PO DAILY 09/18/21 09/18/21 History Past Med/Surg History Medical History Arthritis Constipation Depression GERD (gastroesophageal reflux disease) HTN (hypertension) Hypothyroidism Metabolic encephalopathy Stroke Surgical History H/O: hysterectomy History of arthroplasty of left ankle History of arthroplasty of right ankle History of arthroscopic knee surgery History of colonoscopy History of surgery on wrist Status post breast reduction Family History Mother Diabetes Hypertension Cardiac disorder Brother Cancer Father Myocardial infarction Other Family history non-contributory Denies family history of Ovarian cancer Prostate cancer Breast cancer Lung cancer Social History Smoking Status: Never smoker Second Hand Exposure: No; Hx Alcohol Use: Yes Hx Substance Use: No Preferred Language: Bulgarian Communication Ability: Effective Visual Impairment: Partially Limited Hearing Ability: Use of Hearing Aid 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 Beliefs That Will Affect Care: None marital status: Current Living Situation: Alone Current Living Situation Comment: [facility] since stroke, Jul, 2018 spouse in prison current occupational status: retired How many Children do You have: 3 Other Information That Helps Us Care for You: No Feels Safe at Home: Yes Safety Concerns: Feels Safe At This Time Childhood Exposure to Second-Hand Smoke: Yes caffeine: Yes Dental Care, Regularly: Yes Physical Activity Frequency: Does not Exercise Seatbelt Use: always Sunscreen Use: Yes Assistive Devices: Cane, Glasses and Hearing Aid - Bilateral Review of Systems Review of Systems: All systems reviewed & are unremarkable except as noted in HPI & below Constitutional: no fever, no chills and no malaise Respiratory: no cough and no dyspnea Cardiovascular: no chest pain, no palpitations and no edema Gastrointestinal: + abdominal pain, + diarrhea/loose stools and + blood in stools; no constipation Genitourinary: no dysuria and no hematuria Physical Exam Constitutional: WD/WN, vitals as above Eyes: PERRL, conjunctivae normal, anicteric sclerae ENMT: external ear and nose normal, oropharynx normal Neck: normal visual inspection Respiratory: normal respiratory effort, lungs clear to auscultation Cardiovascular: RRR, no murmur, no edema Gastrointestinal (Abdomen): Inspection/Auscultation: abdomen normal to inspection and normal bowel sounds Percussion/Palpation: + abdomen tender (mild-moderate in LLQ) and abdomen soft; no guarding Musculoskeletal: no cyanosis or clubbing, extremities motor strength 5/5 Skin: no rashes, warm and dry Neurologic: AAOx3, normal speech. Bilateral UE, LE, and face without sensory or motor deficits. Psychiatric: A+Ox3, euthymic affect Results & Data Results & Data ([facility]) Vital Signs (Past 12 Hours) Vital Signs Temp Pulse Pulse Resp BP BP Pulse Ox 09/18/21 20:24 85 20 147/87 H 99 09/18/21 14:53 36.5 C 88 20 146/85 H 97 Supervising Physician Co-Signing Physician Notes Attending addendum: I have physically seen this patient, have supervised the medical residents activities, and agree with the H&P unless as otherwise noted. Assessment and Plan: Sigmoid diverticulitis/lower GI bleed- Hold Augmentin N.p.o. except essential medications Zosyn 4.5 g IV every 8 hours Follow stool cultures H&H every 6 hours Famotidine 20 mg IV every 12 hours CAD/hypertension- Hold aspirin and Plavix due to GI bleeding Hold losartan for borderline blood pressure Remaining orders and notations as noted Resident Activity Tracking Resident Involvement: Resident Care Provided Care Provided: Adult Hospital Medicine (1) CAD (coronary artery disease) Associated angina: without angina Coronary Disease-Associated Artery/Lesion type: [place] artery [place] vs. transplanted heart: [place] heart Qualified Code(s): I25.10 - Atherosclerotic heart disease of [place] coronary artery withou t angina pectoris
[2021-09-19] MEDS ORDERED: ACETAMINOPHEN 325 MG TAB PO PRN (03:05)
[2021-09-19] MEDS ORDERED: ONDANSETRON INJ 2 MG/ML 2 ML VIAL IV PRN (03:05)
[2021-09-19] MEDS ORDERED: PNEUMOCOCCAL POLYSACCHARIDES 25 MCG/0.5 ML VIAL/SYR IM ONE (03:40)
[2021-09-19] MEDS ORDERED: INFLUENZA VACCINE HIGH DOSE PF 65+ 0.7 ML SYR IM ONE (03:40)
[2021-09-19] MEDS: PIPERACILLIN/TAZOBACTAM 3.375 GM in DEXTROSE 5% 100 ML IV SCH ×2 (04:16→10:52)
[2021-09-19] MEDS ORDERED: PIPERACILL/TAZOBAC CONSULT ACTIVE PRN (04:30)
[2021-09-19] MEDS: LEVOTHYROXINE SODIUM 100 MCG TABLET PO SCH (06:23)
[2021-09-19] MEDS: MIRABEGRON ER 25 MG TAB PO SCH (07:22)
[2021-09-19] MEDS: FAMOTIDINE 40 MG TABLET PO SCH (07:22)
[2021-09-19] MEDS: LOSARTAN POTASSIUM 25 MG TAB PO SCH (07:23)
[2021-09-19] MEDS: allopurinoL 300 MG TAB PO SCH (07:23)
[2021-09-19] MEDS: FLUoxetine HCL 20 MG CAP PO SCH (07:23)
[2021-09-19] MEDS: ATORVASTATIN 40 MG TAB PO SCH (07:27)
[2021-09-19] MEDS: MULTIVITAMIN TAB PO SCH (07:27)
--- NOTE | 2021-09-19 09:46 | Hospitalist Progress Note ---
Date of Service September 19, 2021 Assessment & Plan (1) Diverticulitis: (2) Lower GI bleed: (3) Gastroesophageal reflux disease: (4) Depression: (5) Hypothyroidism: (6) CAD (coronary artery disease): Plan: 76 yo F Hx CAD, HTN, CVA, GERD, depression, hypothyroidism admitted for diverticulitis and lower GI bleed. Diverticulitis with lower GI bleed -Diagnosed with sigmoid diverticulitis on 09/14 via CTAP and started on Augmentin, acutely worsening pain and complicated by diarrhea with hematochezia leading to current admission -Stool culture pending -Continuing Zosyn, will switch to Unasyn today with eventual discharge on Augmentin -LGIB possibly due to diverticular inflammation vs hemorrhoids given past history -Hgb stable at 12.6 currently, transfuse for Hgb < 8 -Colonoscopy to be done outpatient 6-8 weeks after resolution of acute illness Syncope -Syncopal incident leading to fall on 09/14 most likely due to vasovagal vs orthostatic causes. Likely some dehydration due to abdominal pain over past 1-2 weeks contributing to decreased oral intake. Also contribution from being in hot shower at the time causing vasodilation -Negative CT head 09/14 CAD with history of CVA -Holding Plavix in the setting of lower GIB (pt no longer taking aspirin) -Continue statin, losartan. -No previous cardiac catheterization record in chart -Once pt stops bleeding and Hgb remains stable, will resume Plavix for stroke risk reduction Hypothyroidism: -Continue levothyroxine. Depression: -Continue fluoxetine. Code Status: DNR/DNI FEN: Full liquid, heart healthy DVT ppx: SCDs, no medical ppx given GIB Dispo: Med/Surg with Telemetry Admission and Anticipated Discharge Date Admission Date: September 18, 2021 Supervising Physician Co-Signing Physician Notes I personally examined the patient and verified all harrell points of history and exam, discussed case, and agree with decision making with Dr Magaña. Ongoing left lower quadrant abdominal pain. Ongoing GI bleedingred stool. Vitals noted, in general she is awake and alert pleasant no distress. HEENT normocephalic atraumatic mucous membranes moist. Breathing unlabored no accessory muscle use good effort. Abdomen is soft nondistended she does have left sided abdominal tenderness without rigidity, may be mild voluntary but definitely no involuntary guarding. Acute diverticulitisfailed outpatient treatmentcontinue current antibiotics serial exams supportive care and time Lower GI bleedingcompletely hemodynamically stablecontinue to follow closely, no need for acute/urgent intervention, and given the diverticulitis, endoscopic work-up would be risky right now anyway. Not really certain that the GI bleeding actually relates to the diverticulitis, given that that is not a very common concomitant finding with diverticular disease, certainly could be possible but also would favor other differentials for lower GI bleeding. Serial exams, serial hemoglobin, no indications for transfusion at this time. Right now plan would be to treat the current episode of diverticulitis, then have outpatient endoscopy in 1 to 2 months Katrina is just on Plavix not aspirin and Plavix. Right now this on hold due to GI bleeding DVT proph - scds Subjective Pt reporting mild-moderate abdominal pain 5/10, denies nausea or fevers. Not feeling hungry or thirsty. Experienced bright red bloody diarrheal bowel movement last night and again earlier in AM. On further questioning, pt stated she has been constipated over last few months and has had rectal bleeding due to hemorrhoids about 3-4 years ago. She has had moderate abdominal pain for approximately 1-2 weeks now but came to the ER on 09/14 for the fall in her bathroom. During PM rounds, pt reported tolerating liquid diet for lunch well without any nausea or increased pain. Also had 1 more bloody diarrheal bowel movement since the morning. Review of Systems Constitutional: no fever, no chills and no malaise Respiratory: no cough and no dyspnea Cardiovascular: no chest pain, no palpitations and no edema Gastrointestinal: + abdominal pain, + diarrhea/loose stools and + blood in stools; no constipation Genitourinary: no dysuria and no hematuria Physical Exam Constitutional: WD/WN, vitals as above Eyes: PERRL, conjunctivae normal, anicteric sclerae Neck: normal visual inspection Respiratory: normal respiratory effort, lungs clear to auscultation Cardiovascular: RRR, no murmur, no edema Gastrointestinal (Abdomen): Inspection/Auscultation: abdomen normal to inspection and normal bowel sounds Percussion/Palpation: + abdomen tender (mild-moderate in LLQ) and abdomen soft; no guarding Musculoskeletal: no cyanosis or clubbing, extremities motor strength 5/5 Skin: no rashes, warm and dry Results & Data Results & Data ([facility]) Vital Signs (Past 12 Hours) Vital Signs Temp Pulse Pulse Resp BP Pulse Ox Pulse Ox 09/19/21 08:00 36.7 C 84 18 106/71 92 09/19/21 07:02 66 09/19/21 03:05 36.8 C 81 83 16 138/76 94 94 09/19/21 01:21 86 129/82 96 09/18/21 23:40 83 143/88 H 96 Resident Activity Tracking Resident Involvement: Resident Care Provided Care Provided: Adult Hospital Medicine (1) CAD (coronary artery disease) Associated angina: without angina Coronary Disease-Associated Artery/Lesion type: [place] artery [place] vs. transplanted heart: [place] heart Qualified Code(s): I25.10 - Atherosclerotic heart disease of [place] coronary artery without angina pectoris
--- NOTE | 2021-09-19 11:13 | Electrocardiogram Report ---
Test Reason : Blood Pressure : / mmHG Vent. Rate : 083 BPM Atrial Rate : 083 BPM P-R Int : 162 ms QRS Dur : 084 ms QT Int : 396 ms P-R-T Axes : 027 -05 017 degrees QTc Int : 465 ms Poor data quality, interpretation may be adversely affected Normal sinus rhythm When compared with ECG of 14-SEP-2021 16:56, Criteria for Anterior infarct are no longer Present Nonspecific T wave abnormality no longer evident in Lateral leads Confirmed by Ayush Evans ([id number] on 09/19/2021 11:13:08 AM Referred By: Meño Johnson Confirmed By:Estevan Evans
[2021-09-19] MEDS ORDERED: MoRPHine SULFATE 4 MG/ML 1 ML CARP\\VIAL IV PRN (14:43)
[2021-09-19] MEDS: ACETAMINOPHEN 500 MG TAB PO SCH ×2 (15:09→21:14)
[2021-09-19] MEDS: AMPICILLIN/SULBACTAM SOD 1,500 MG in 0.9 % SODIUM CHLORIDE 100 ML IV SCH ×2 (16:06→21:18)
--- NOTE | 2021-09-19 17:46 | Billing Data ---
Date of Service September 19, 2021 Coding Level of Care Code 58786 Subseq Hosp Care Lvl 3
--- NOTE | 2021-09-19 21:01 | Billing Data ---
Date of Service September 19, 2021 Coding Level of Care Code 40329 Initial Inpt Care Lvl 3
[2021-09-19] MEDS: oxyCODONE HCL IR 5 MG TAB (IMMEDIATE RELEASE) PO PRN (21:42)
[2021-09-20] MEDS: ACETAMINOPHEN 500 MG TAB PO SCH ×4 (03:03→21:31)
[2021-09-20] MEDS: AMPICILLIN/SULBACTAM SOD 1,500 MG in 0.9 % SODIUM CHLORIDE 100 ML IV SCH ×4 (04:12→21:31)
[2021-09-20] MEDS: LEVOTHYROXINE SODIUM 100 MCG TABLET PO SCH (05:51)
[2021-09-20] MEDS: MIRABEGRON ER 25 MG TAB PO SCH (07:14)
[2021-09-20] MEDS: FLUoxetine HCL 20 MG CAP PO SCH (07:14)
[2021-09-20] MEDS: FAMOTIDINE 40 MG TABLET PO SCH (07:14)
[2021-09-20] MEDS: ATORVASTATIN 40 MG TAB PO SCH (07:14)
[2021-09-20] MEDS: allopurinoL 300 MG TAB PO SCH (07:15)
[2021-09-20] MEDS: MULTIVITAMIN TAB PO SCH (07:15)
[2021-09-20] MEDS: LOSARTAN POTASSIUM 25 MG TAB PO SCH (07:15)
[2021-09-20 07:53] LABS: Hematocrit (blood only) 33.3 % (37-47); Hemoglobin 10.7 g/dL (12.0-16.0); Mean Corpuscular Hemoglobin 29.8 pg (25-34); Mean Corpuscular Hgb Conc 32.1 g/dL (32-36); Mean Corpuscular Volume 92.8 fL (80-100); Mean Platelet Volume 8.4 fL (7.4-10.4); Platelet Count 317 K/uL (130-400); RDW Coefficient of Variation 16.1 % (11.5-14.5); RDW Standard Deviation 54.1 fL (36.4-46.3); Red Blood Count 3.59 M/uL (4.2-5.4); White Blood Count 7.37 K/uL (4.8-10.8)
[2021-09-20] MEDS: oxyCODONE HCL IR 5 MG TAB (IMMEDIATE RELEASE) PO PRN ×3 (07:54→21:30)
[2021-09-20 08:12] LABS: BUN Creatinine Ratio 10.8 (10-20); Calcium 8.2 mg/dl (8.5-10.1); Creatinine Clr Calc Pharmacy 94.2 ml/min; Est GFR (African American) 103.6 ml/min; Est GFR (Non-African American) 89.4 ml/min; Potassium 3.4 mmol/L (3.5-5.1)
[2021-09-20] MEDS ORDERED: POTASSIUM CHLORIDE CRTAB 20 MEQ TABCR PO STA (08:58)
--- NOTE | 2021-09-20 10:12 | Hospitalist Progress Note ---
Date of Service September 20, 2021 Assessment & Plan (1) Diverticulitis: (2) Lower GI bleed: (3) Gastroesophageal reflux disease: (4) Depression: (5) Hypothyroidism: (6) CAD (coronary artery disease): Plan: 76 yo F Hx CAD, HTN, CVA, GERD, depression, hypothyroidism admitted for diverticulitis and lower GI bleed. Diverticulitis with lower GI bleed -Diagnosed with sigmoid diverticulitis on 09/14 via CTAP and started on Augmentin, acutely worsening pain and complicated by diarrhea with hematochezia leading to current admission -Stool culture pending -Switched from Zosyn to Unasyn yesterday, will eventually discharge on Augmentin -Good clinical improvement on abx therapy -LGIB possibly due to diverticular inflammation vs hemorrhoids given past history -Hgb drop from 12.6 to 10.7, asymptomatic for anemia at present, transfuse for <8 -Colonoscopy to be done outpatient 6-8 weeks after resolution of acute illness Syncope -Syncopal incident leading to fall on 09/14 most likely due to vasovagal vs orthostatic causes. Likely some dehydration due to abdominal pain over past 1-2 weeks contributing to decreased oral intake. Also contribution from being in hot shower at the time causing vasodilation -Negative CT head 09/14 CAD with history of CVA -Holding Plavix in the setting of lower GIB (pt no longer taking aspirin) -Continue statin, losartan. -No previous cardiac catheterization record in chart -Once pt stops bleeding and Hgb remains stable, will resume Plavix for stroke risk reduction Hypothyroidism: -Continue levothyroxine. Depression: -Continue fluoxetine. Code Status: DNR/DNI FEN: Full liquid, heart healthy DVT ppx: SCDs, no medical ppx given GIB Dispo: Med/Surg with Telemetry Admission and Anticipated Discharge Date Admission Date: September 18, 2021 Supervising Physician Co-Signing Physician Notes I personally examined the patient and verified all harrell points of history and exam, discussed case, and agree with decision making with Dr Magaña. Ongoing left lower quadrant pain but improving. Some blood in stool, but lessening. Vitals noted, in general she is awake and alert pleasant no distress. HEENT normocephalic atraumatic mucous membranes moist. Breathing unlabored no accessory muscle use good effort. Abdomen is soft nondistended she does have left sided abdominal tenderness without rigidity, no voluntary or involuntary guarding, can press probably at least twice as hard as yesterday before eliciting pain Acute diverticulitisfailed outpatient treatmentcontinue current antibiotics serial exams supportive care and time, is showing improvementwith further improvement in pain, and hopefully stopping of bloody stools, can start to look towards home in the near future Lower GI bleedingcompletely hemodynamically stablecontinue to follow closely, no need for acute/urgent intervention, and given the diverticulitis, endoscopic work-up would be risky right now anyway. Not really certain that the GI bleeding actually relates to the diverticulitis, given that that is not a very common concomitant finding with diverticular disease, certainly could be possible but also would favor other differentials for lower GI bleeding. Serial exams, serial hemoglobin, no indications for transfusion at this time. Despite ongoing bleeding, she is very stable. Outpatient endoscopic work-up. Does have copious amount of stool on CT, will give gentle amounts of MiraLAX to help move this along, in case rectal pressure and hemorrhoids are the cause of the bleeding. Katrina is just on Plavix not aspirin and Plavix. Right now this on hold due to GI bleeding DVT proph - scds Subjective Pt received oxycodone PRN for moderate abdominal pain last night, otherwise no acute events. Reports feeling better today, abdominal pain has decreased, tolerating diet well, reduced frequency of diarrhea but still some blood noted in stool. Review of Systems Review of Systems: +Abdominal pain, hematochezia Physical Exam Physical Exam: General- well-appearing, laying in bed without any acute distress HEENT- moist mucous membranes CV- RRR, normal S1 and S2, no murmurs Resp- CTAB, unlabored respirations Abd- decreased tenderness of LLQ and LUQ, soft, nondistended, no guarding or rebound Skin- no rashes, warm and dry Neuro- alert and oriented, no focal motor deficits Results & Data Results & Data ([facility]) Vital Signs (Past 12 Hours) Vital Signs Temp Pulse Pulse Resp BP Pulse Ox 09/20/21 08:16 36.8 C 75 16 129/69 93 09/20/21 07:07 73 09/20/21 02:55 36.4 C L 74 18 132/69 93 09/19/21 23:03 72 09/19/21 22:52 36.8 C 75 18 131/66 93 Resident Activity Tracking Resident Involvement: Resident Care Provided Care Provided: Adult Hospital Medicine (1) CAD (coronary artery disease) Associated angina: without angina Coronary Disease-Associated Artery/Lesion type: [place] artery [place] vs. transplanted heart: [place] heart Qualified Code(s): I25.10 - Atherosclerotic heart disease of [place] coronary artery without angina pectoris
--- NOTE | 2021-09-20 15:30 | Billing Data ---
Date of Service September 20, 2021 Coding Level of Care Code 43449 Subseq Hosp Care Lvl 2
[2021-09-21] MEDS: ACETAMINOPHEN 500 MG TAB PO SCH ×4 (04:07→20:07)
[2021-09-21] MEDS: AMPICILLIN/SULBACTAM SOD 1,500 MG in 0.9 % SODIUM CHLORIDE 100 ML IV SCH ×4 (04:13→21:25)
[2021-09-21] MEDS: LEVOTHYROXINE SODIUM 100 MCG TABLET PO SCH (05:38)
[2021-09-21 06:27] LABS: Hematocrit (blood only) 35.1 % (37-47); Hemoglobin 11.4 g/dL (12.0-16.0); Mean Corpuscular Hemoglobin 30.2 pg (25-34); Mean Corpuscular Hgb Conc 32.5 g/dL (32-36); Mean Corpuscular Volume 93.1 fL (80-100); Mean Platelet Volume 8.6 fL (7.4-10.4); Platelet Count 351 K/uL (130-400); RDW Coefficient of Variation 16.1 % (11.5-14.5); RDW Standard Deviation 54.5 fL (36.4-46.3); Red Blood Count 3.77 M/uL (4.2-5.4); White Blood Count 7.34 K/uL (4.8-10.8)
[2021-09-21 06:56] LABS: BUN Creatinine Ratio 8.6 (10-20); Calcium 8.5 mg/dl (8.5-10.1); Est GFR (African American) 99.3 ml/min; Est GFR (Non-African American) 85.6 ml/min; Potassium 3.9 mmol/L (3.5-5.1)
--- NOTE | 2021-09-21 09:00 | Hospitalist Progress Note ---
Date of Service September 21, 2021 Assessment & Plan (1) Diverticulitis: (2) Lower GI bleed: (3) Gastroesophageal reflux disease: (4) Depression: (5) Hypothyroidism: (6) CAD (coronary artery disease): Plan: 76 yo F Hx CAD, HTN, CVA, GERD, depression, hypothyroidism admitted for diverticulitis and lower GI bleed. Diverticulitis with lower GI bleed -Diagnosed with sigmoid diverticulitis on 09/14 via CTAP and started on Augmentin, acutely worsening pain and complicated by diarrhea with hematochezia leading to current admission -Stool culture negative -Switched from Zosyn to Unasyn yesterday, will eventually discharge on Augmentin -Good clinical improvement on abx therapy thus far, expected d/c tomorrow in AM -LGIB possibly due to diverticular inflammation vs hemorrhoids 2/2 chronic constipation given past history. Stool burden noted on CT, Miralax ongoing. -Hgb currently at 11 but asymptomatic, transfuse for <8 -Colonoscopy to be done outpatient 6-8 weeks after resolution of acute illness Syncope -Syncopal incident leading to fall on 09/14 most likely due to vasovagal vs orthostatic causes. Likely some dehydration due to abdominal pain over past 1-2 weeks contributing to decreased oral intake. Also contribution from being in hot shower at the time causing vasodilation -Negative CT head 09/14 CAD with history of CVA -Holding Plavix in the setting of lower GIB (pt no longer taking aspirin) -Continue statin, losartan. -No previous cardiac catheterization record in chart -Once pt stops bleeding and Hgb remains stable, will resume Plavix for stroke risk reduction. Likely will be done on discharge. Hypothyroidism: -Continue levothyroxine. Depression: -Continue fluoxetine. Code Status: DNR/DNI FEN: Full liquid, heart healthy DVT ppx: SCDs, no medical ppx given GIB Dispo: Home tomorrow in AM Admission and Anticipated Discharge Date Admission Date: September 18, 2021 Subjective Pt reports feeling better, denying abdominal pain, tolerating food well without nausea/vomiting, and has not had any bowel movements since yesterday. Endorses fatigue, states she would like to go home tomorrow. Review of Systems Review of Systems: Negative per subjective Physical Exam Physical Exam: General- well-appearing, laying in bed without any acute distress HEENT- moist mucous membranes CV- RRR, normal S1 and S2, no murmurs Resp- CTAB, unlabored respirations Abd- moderate but decreased tenderness of LLQ and LUQ compared to yesterday's exam, soft, nondistended, no guarding or rebound Skin- no rashes, warm and dry Neuro- alert and oriented, no focal motor deficits Results & Data Results & Data ([facility]) Vital Signs (Past 12 Hours) Vital Signs Temp Pulse Pulse Resp BP Pulse Ox 09/21/21 07:45 36.9 C 81 20 146/78 H 94 09/21/21 07:27 71 09/21/21 04:00 36.8 C 73 20 125/69 94 09/21/21 00:22 65 09/20/21 22:00 36.5 C 61 20 129/70 95 Resident Activity Tracking Resident Involvement: Resident Care Provided Care Provided: Adult Hospital Medicine (1) CAD (coronary artery disease) Associated angina: without angina Coronary Disease-Associated Artery/Lesion type: [place] artery [place] vs. transplanted heart: [place] heart Qualified Code(s): I25.10 - Atherosclerotic heart disease of [place] coronary artery without angina pectoris
[2021-09-21] MEDS: POLYETHYLENE (MIRALAX) 17 GM PACK PO SCH (09:14)
[2021-09-21] MEDS: LOSARTAN POTASSIUM 25 MG TAB PO SCH (09:15)
[2021-09-21] MEDS: FAMOTIDINE 40 MG TABLET PO SCH (09:15)
[2021-09-21] MEDS: allopurinoL 300 MG TAB PO SCH (09:15)
[2021-09-21] MEDS: ATORVASTATIN 40 MG TAB PO SCH (09:15)
[2021-09-21] MEDS: FLUoxetine HCL 20 MG CAP PO SCH (09:15)
[2021-09-21] MEDS: MIRABEGRON ER 25 MG TAB PO SCH (09:15)
[2021-09-21] MEDS: MULTIVITAMIN TAB PO SCH (09:15)
[2021-09-21] MEDS: oxyCODONE HCL IR 5 MG TAB (IMMEDIATE RELEASE) PO PRN (15:28)
[2021-09-22] MEDS: ACETAMINOPHEN 500 MG TAB PO SCH ×4 (02:46→21:33)
[2021-09-22] MEDS: AMPICILLIN/SULBACTAM SOD 1,500 MG in 0.9 % SODIUM CHLORIDE 100 ML IV SCH ×4 (04:36→21:33)
[2021-09-22] MEDS: LEVOTHYROXINE SODIUM 100 MCG TABLET PO SCH (06:00)
[2021-09-22 07:15] LABS: Hematocrit (blood only) 34.6 % (37-47); Hemoglobin 11.3 g/dL (12.0-16.0); Mean Corpuscular Hemoglobin 30.1 pg (25-34); Mean Corpuscular Hgb Conc 32.7 g/dL (32-36); Mean Platelet Volume 8.3 fL (7.4-10.4); Platelet Count 341 K/uL (130-400); RDW Coefficient of Variation 15.7 % (11.5-14.5); RDW Standard Deviation 53.3 fL (36.4-46.3); Red Blood Count 3.76 M/uL (4.2-5.4); White Blood Count 7.92 K/uL (4.8-10.8)
[2021-09-22] MEDS: MIRABEGRON ER 25 MG TAB PO SCH (07:53)
[2021-09-22] MEDS: MULTIVITAMIN TAB PO SCH (07:53)
[2021-09-22] MEDS: FLUoxetine HCL 20 MG CAP PO SCH (07:54)
[2021-09-22] MEDS: POLYETHYLENE (MIRALAX) 17 GM PACK PO SCH ×2 (07:54→15:22)
[2021-09-22] MEDS: ATORVASTATIN 40 MG TAB PO SCH (07:54)
[2021-09-22] MEDS: FAMOTIDINE 40 MG TABLET PO SCH (07:54)
[2021-09-22] MEDS: LOSARTAN POTASSIUM 25 MG TAB PO SCH (07:54)
[2021-09-22] MEDS: allopurinoL 300 MG TAB PO SCH (07:54)
[2021-09-22 08:14] LABS: BUN Creatinine Ratio 12.9 (10-20); Creatinine Clr Calc Pharmacy 85.4 ml/min; Est GFR (African American) 100.8 ml/min; Potassium 3.6 mmol/L (3.5-5.1)
--- NOTE | 2021-09-22 11:07 | Hospitalist Progress Note ---
Date of Service September 22, 2021 Assessment & Plan (1) Diverticulitis: (2) Lower GI bleed: (3) Gastroesophageal reflux disease: (4) Depression: (5) Hypothyroidism: (6) CAD (coronary artery disease): Plan: 76 yo F Hx CAD, HTN, CVA, GERD, depression, hypothyroidism admitted for diverticulitis and lower GI bleed. Diverticulitis with lower GI bleed -Diagnosed with sigmoid diverticulitis on 09/14 via CTAP and started on Augmentin, acutely worsening pain and complicated by diarrhea with hematochezia leading to current admission -Stool culture negative -Switched from Zosyn in ED to Unasyn, will eventually discharge on Augmentin -LGIB possibly due to diverticular inflammation vs hemorrhoids 2/2 chronic constipation given past history. Stool burden noted on CT. -Hgb currently holding stable around 11 and asymptomatic, transfuse for <8 -Pt improving clinically, will aim for discharge tomorrow in AM pending abdominal exam, pain level and bowel movements -Colonoscopy to be done outpatient 6-8 weeks after resolution of acute illness Syncope -Syncopal incident leading to fall on 09/14 most likely due to vasovagal vs orthostatic causes. Likely some dehydration due to abdominal pain over past 1-2 weeks contributing to decreased oral intake. Also contribution from being in hot shower at the time causing vasodilation -Negative CT head 09/14 CAD with history of CVA -Holding Plavix in the setting of lower GIB (pt no longer taking aspirin) -Continue statin, losartan. -Once pt stops bleeding and Hgb remains stable, will resume Plavix for stroke risk reduction. Likely will be done on discharge. Hypothyroidism: -Continue levothyroxine. Depression: -Continue fluoxetine. Code Status: DNR/DNI FEN: Regular, heart healthy DVT ppx: SCDs, no medical ppx given GIB Dispo: Home tomorrow in AM Admission and Anticipated Discharge Date Admission Date: September 18, 2021 Supervising Physician Co-Signing Physician Notes Patient seen and examined independently of PGY-1 Dr. Magaña. Agree with history, exam findings, assessment and plan of care as outlined. In brief, Ms. Zaldivar is a 76 year old female with history of CAD, HTN, prior CVA, depression, hypothyroid admitted with diverticulitis and lower GI bleed. She feels that her abdominal pain is a little more generalized today than before. She has had one bowel movement that was mostly blood since yesterday. Per nursing, this was not bright red. No stool seen. Denies vomiting. Denies nausea. VS and nursing notes reviewed. Abdomen is soft. Minimal to moderate tenderness in the right and left lower quadrants. No rebound or guarding. Labs and imaging reviewed. 1.Diverticulitis. Sigmoid colon. Failed Augmentin as an outpatient. Received 1 dose of Zosyn on admission. Since then, she has been on Unasyn. Will need c- scope 6-8 weeks post-hospital discharge. 2.Lower GI bleed. ?secondary to diverticular bleed vs AVM vs internal hemorrhoid. Hgb has been stable. Hemoglobin today 11.3. 3.New RLQ pain. Suspect this may be secondary to constipation. Less likely that this is related to a New diverticulitis or intra-abdominal infection. Check KUB. 4.Syncopal episode. Vasovagal vs orthostatic. Resolved. 5.CAD, hx of CVA. Holding Plavix. Continue statin, losartan. Dispo: Pending clinical improvement. Subjective Pt reports feeling generally better but having some mild-moderate abdominal pain today. Still tolerating diet well without nausea/vomiting, had a bowel movement with some clots earlier today. Review of Systems Review of Systems: +Abdominal pain, bloody bowel movement Physical Exam Physical Exam: General- well-appearing, laying in bed without any acute distress HEENT- moist mucous membranes CV- RRR, normal S1 and S2, no murmurs Resp- CTAB, unlabored respirations Abd- moderate tenderness of LLQ and LUQ, slightly more than yesterday's exam, soft, nondistended, no guarding or rebound Skin- no rashes, warm and dry Neuro- alert and oriented, no focal motor deficits Results & Data Results & Data ([facility]) Vital Signs (Past 12 Hours) Vital Signs Temp Pulse Pulse Resp BP Pulse Ox 09/22/21 08:38 78 09/22/21 07:17 37.2 C 79 18 148/78 H 94 09/22/21 02:48 36.6 C 82 20 138/82 94 Resident Activity Tracking Resident Involvement: Resident Care Provided Care Provided: Adult [facility] Medicine (1) CAD (coronary artery disease) Associated angina: without angina Coronary Disease-Associated Artery/Lesion type: [place] artery [place] vs. transplanted heart: [place] heart Qualified Code(s): I25.10 - Atherosclerotic heart disease of [place] coronary artery without angina pectoris
--- NOTE | 2021-09-22 19:01 | XRay Report ---
KUB CLINICAL HISTORY: Generalized abdominal pain. Diverticulitis. FINDINGS: 2 AP supine abdominal radiographs are correlated with abdominal CT dated 09/18/2021. There is a nonobstructed abdominal bowel gas pattern. Wisl-xf-fuciqejm fecal retention is seen throughout t he colon. No evidence of intraperitoneal free air is identified on these supine views. There are no a bnormal abdominal calcifications. Pelvic calcifications are unchanged. The skeletal structures are os teopenic and appear intact. There is lumbosacral spondylosis. IMPRESSION: Nonobstructed abdominal bowel gas pattern. Electronically signed by: Timbo Lockwood M.D. 09/22/2021 7:00 PM
[2021-09-22] MEDS: oxyCODONE HCL IR 5 MG TAB (IMMEDIATE RELEASE) PO PRN (21:32)
[2021-09-23] MEDS: ACETAMINOPHEN 500 MG TAB PO SCH ×3 (04:51→19:32)
[2021-09-23] MEDS: AMPICILLIN/SULBACTAM SOD 1,500 MG in 0.9 % SODIUM CHLORIDE 100 ML IV SCH ×4 (04:51→21:37)
[2021-09-23] MEDS: LEVOTHYROXINE SODIUM 100 MCG TABLET PO SCH (05:48)
[2021-09-23] MEDS: MIRABEGRON ER 25 MG TAB PO SCH (07:38)
[2021-09-23] MEDS: MULTIVITAMIN TAB PO SCH (07:39)
[2021-09-23] MEDS: FAMOTIDINE 40 MG TABLET PO SCH (07:40)
[2021-09-23] MEDS: ATORVASTATIN 40 MG TAB PO SCH (07:40)
[2021-09-23] MEDS: FLUoxetine HCL 20 MG CAP PO SCH (07:41)
[2021-09-23] MEDS: allopurinoL 300 MG TAB PO SCH (07:41)
[2021-09-23] MEDS: LOSARTAN POTASSIUM 25 MG TAB PO SCH (07:41)
[2021-09-23] MEDS: POLYETHYLENE (MIRALAX) 17 GM PACK PO SCH (07:42)
[2021-09-23 08:32] LABS: Hematocrit (blood only) 32.9 % (37-47); Hemoglobin 11.1 g/dL (12.0-16.0); Mean Corpuscular Hemoglobin 30.5 pg (25-34); Mean Corpuscular Hgb Conc 33.7 g/dL (32-36); Mean Corpuscular Volume 90.4 fL (80-100); Mean Platelet Volume 8.3 fL (7.4-10.4); Platelet Count 360 K/uL (130-400); RDW Coefficient of Variation 15.8 % (11.5-14.5); RDW Standard Deviation 52.8 fL (36.4-46.3); Red Blood Count 3.64 M/uL (4.2-5.4); White Blood Count 8.01 K/uL (4.8-10.8)
[2021-09-23 09:06] LABS: BUN Creatinine Ratio 13.2 (10-20); Calcium 8.8 mg/dl (8.5-10.1); Creatinine Clr Calc Pharmacy 80.2 ml/min; Est GFR (African American) 98.8 ml/min; Est GFR (Non-African American) 85.2 ml/min; Potassium 3.4 mmol/L (3.5-5.1)
--- NOTE | 2021-09-23 15:48 | Discharge Summary ---
Date of Service September 23, 2021 Admission HPI Per Admitting Provider 76 yo F Hx CAD, HTN, CVA, GERD, depression presented to the ER for abdominal pain. She was diagnosed incidentally with diverticulitis on 09/14 on CTAP after a fall. She was treated with Augmentin, which she has been taking without missed pills. Reports that over the last two days she has been developing worsening abdominal pain, and today she had several episodes of diarrhea with moderate amount of bright red blood. She denies chest pain, SOB, nausea or vomiting, fevers or chills. She does endorse some lightheadedness today with standing up. She does not endorse previous history of GI bleed. She reports that if she required blood she would want it, but she does not want intubation nor chest compressions. In the ER patient had stable normal vitals. Hgb 12.6 (12.8 on 09/14), Na 134, lipase normal, creatinine normal, troponin negative, COVID 19 negative. Repeat CTAP again showed sigmoid diverticulitis without perforation or abscess.She was started on Zosyn. Principal Diagnosis Acute diverticulitis with lower GI bleed Discharge Exam General- well-appearing, laying in bed without any acute distress HEENT- moist mucous membranes CV- RRR, normal S1 and S2, no murmurs Resp- CTAB, unlabored respirations Abd- moderate tenderness of LLQ and LUQ, slightly more than yesterday's exam, soft, nondistended, no guarding or rebound Skin- no rashes, warm and dry Neuro- alert and oriented, no focal motor deficits Discharge Data Allergies Allergy/AdvReac Type Severity Reaction Status Date / Time erythromycin base Allergy Intermediate GASTRIC Verified 04/21/21 09:24 INFLAMATION rofecoxib Allergy Intermediate GASTRIC Verified 04/21/21 09:24 INFLAMATION Consultations 09/18/21 23:09 ED Decision to Admit Stat Ordered Studies 09/18/21 20:11 CT abd pelvis IV con only Stat Hospital Course (1) Diverticulitis: (2) Lower GI bleed: (3) Gastroesophageal reflux disease: (4) Depression: (5) Hypothyroidism: (6) CAD (coronary artery disease): 76 yo F Hx CAD, HTN, CVA, GERD, depression, hypothyroidism admitted for diverticulitis and lower GI bleed. Admitted on 09/18 and discharged 09/23 Diverticulitis with lower GI bleed -Diagnosed with sigmoid diverticulitis on 09/14 via CTAP and started on Augmentin, acutely worsening pain and complicated by diarrhea with hematochezia leading to current admission -Stool culture negative -Switched from Zosyn in ED to Unasyn. Eventually discharged on Augmentin to complete at home. -LGIB possibly due to diverticular inflammation vs hemorrhoids 2/2 chronic constipation given past history. Stool burden noted on CT. -Hgb currently holding stable around 11 and asymptomatic, transfuse for <8 -Pt generally improved over course of stay -Colonoscopy to be done outpatient 6-8 weeks after resolution of acute illness Syncope -Syncopal incident leading to fall on 09/14 most likely due to vasovagal vs orthostatic causes. Likely some dehydration due to abdominal pain over past 1-2 weeks contributing to decreased oral intake. Also contribution from being in hot shower at the time causing vasodilation -Negative CT head 09/14 CAD with history of CVA -Held Plavix in the setting of lower GIB (pt no longer taking aspirin) -Continued home statin, losartan -Discharged with instructions to avoid her home Plavix until bloody stools resolve, advised to wait until 10/05 Hypothyroidism: -Continue levothyroxine. Depression: -Continue fluoxetine. Total Time Total Time Spent Total Time Spent (In Minutes): 30 Discharge Plan Discharge Items Patient Disposition: Home - Self-Care Reason For Visit: ACUTE DIVERTICULITIS, LOWER GIB Discharge Diagnosis: Acute diverticulitis and lower gastrointestinal bleeding Activity: Per Instructions section Non-emergency contact: Primary Care Provider and Sound Editor Call non-emergency contact if: you have any medication questions, your symptoms worsen, your pain is not controlled, your pain is worsening, your pain is concerning for you and you have a fever Follow-up/Referrals: Meño Johnson MD [Primary Care Provider] - 09/30/21 11:00 am () Gela Parikh CRNP [Nurse Practitioner] - 10/02/21 10:20 am () Diet: Heart Healthy and Low Fiber Addtl Attending Provider Instructions: You were admitted to the hospital for diverticulitis, an inflammation of pouches on the colon. You were treated with IV fluids and antibiotics. Your diet was gradually advanced as you could tolerate it. You will need to complete a course of oral antibiotics at home to treat the remainder of the infection. You also need to hydrate appropriately with plenty of fluid intake. While the pain and diarrhea won't fully go away for at least a few days after you finish the antibiotics, it should gradually decrease as you continue treatment and will resolve completely with time. Going forward, you should have a low fiber diet to reduce the risk of future diverticulitis. Avoid / Minimize the following foods: -Bread, pasta, rice -Alcohol -Spicy foods -Excessive citrus fruits -Excessive caffeine -Red meat Try to include more of the following foods in your diet: -Eggs -Pulp free fruit and vegetable juice -Fresh fruits- watermelons, grapes, oranges, limes -Milk, yogurt -Fish -Chicken You also were noted to have some bloody stools while in the hospital. This may have been caused by the diverticulitis but also possibly due to chronic constipation, given you've had hemorrhoids in the past. Your hemoglobin levels were slightly low but stable during your admission, which means you likely weren't having any acute serious bleeding. We expect that the bloody stools will resolve fully as you continue antibiotics and strong fluid intake. Please follow up this issue with your primary care physician. A discharge summary will be sent to your primary care physician to ensure continuity of care. Please bring this discharge summary with you to your next office appointment so that your provider can review it at that time. Follow-up appointments: -Please make a follow up appointment with your PCP for next week. At your appointment, make sure to discuss dietary modification going forward as well as the events of your hospitalization. Medications: Your medication list has been reviewed and reconciled upon discharge to ensure accuracy and continuity of care. An updated list of all your medications is included with your hospital discharge paperwork. Please review this list closely, and make note of any changes. * We sent a new medication called Augmentin to your pharmacy. You should start your first dose this evening. * We advise you to not take your Plavix at least until 10/05; or until you are no longer having blood in your stools. Take your medications as instructed; do not skip a dose of your medicines. Make sure all of your doctors know every medicine you are taking (including yxjr-eer-izaglhq medicines, vitamins, and supplements). Call your primary care provider before taking any new medicines (including npob-faz-dftdtok medicines, vitamins, and supplements), because some of these may interact with your current medications, or may make your symptoms worse. Tell your primary care provider if you cannot afford your medications. CONTACT YOUR PRIMARY CARE PROVIDER if you experience any of the following: Fever Abdominal pain Nausea/vomiting Bloody stools Diarrhea Difficulty following your treatment plan, or difficulty taking medications CALL 911 OR GO TO THE EMERGENCY DEPARTMENT if you experience any of the following: Sudden, severe abdominal pain or nausea/vomiting Severe chest pain, or chest pain that radiates (moves) to your jaw or arm Sudden, severe shortness of breath or difficulty breathing Thank you for allowing us to participate in your care. Pending Studies at Discharge: No Stand-Alone Forms: My [facility] Gravitant, Smoking Cessation Medications and DC Order Prescriptions: New amoxicillin-pot clavulanate [Augmentin] 875-125 mg tablet 1 tab PO BID 5 Days Qty: 10 RF: 0 Continued cholecalciferol (vitamin D3) [Vitamin D3] 10 mcg (400 unit) tablet 400 unit PO DAILY Qty: 90 RF: 3 multivitamin Tablet 1 tab PO QAM Qty: 90 RF: 3 fluoxetine 20 mg capsule 20 mg PO DAILY Qty: 90 RF: 3 atorvastatin 40 mg tablet 40 mg PO DAILY Qty: 90 RF: 3 levothyroxine [Synthroid] 100 mcg tablet 100 mcg PO DAILY Qty: 90 RF: 3 Myrbetriq 50 mg tablet extended release 24 hr 50 mg PO DAILY Qty: 90 RF: 3 allopurinol 300 mg tablet 300 mg PO DAILY Qty: 90 RF: 3 trospium 20 mg tablet 20 mg PO BID 90 Days Qty: 180 RF: 3 losartan 25 mg tablet 25 mg PO DAILY Qty: 90 RF: 3 Discontinued clopidogrel [Plavix] 75 mg Tablet 75 mg PO DAILY RF: 0 Discharge Orders: Discharge Order (Routine); Ordered 09/23/21 Ordered By: Joi Taylor/Other Patient Handouts: ED Diverticulitis Admission Data Admit Date/Time: 09/18/21 23:49 Attending Provider: Geovanny Ruano Admit Provider: Joi Alejo Primary Care Provider: Meño Johnson Other Providers: Asael Gilmore ; [facility] Supervising Physician Co-Signing Physician Notes Patient seen and examined with PGY-1 Dr. Magaña. Agree with history, exam findings, assessment and plan of care as outlined. In brief, Ms. Zaldivar is a 76 year old female with history of CAD, HTN, prior CVA, depression, hypothyroid admitted with diverticulitis and lower GI bleed. Abdominal pain is improved compared to yesterday. She has had some loose bowel movements but did have a negative C. difficile yesterday. No fevers, chills. No nausea. Per nursing, she only had a scant amount of darker appearing blood with her bowel movement. VS and nursing notes reviewed. Abdomen is soft. Minimal to moderate tenderness in the right and left lower quadrants. No rebound or guarding. Labs and imaging reviewed. 1. Diverticulitis. Sigmoid colon. Failed Augmentin as an outpatient. Received 1 dose of Zosyn on admission. Since then, she has been on Unasyn. She will be discharged on Augmentin. Will need c-scope 6-8 weeks post-hospital discharge. 2. Lower GI bleed. ?secondary to diverticular bleed vs AVM vs internal hemorrhoid. Hgb has been stable and bleeding has ceased. 3. Syncopal episode. Vasovagal vs orthostatic. Resolved. 4. CAD, hx of CVA. Holding Plavix. Continue statin, losartan. She can restart her Plavix when she is no longer having any blood in the stool. Dispo: Discharge home today. I personally spent 20 minutes discharge planning for this patient. Resident Activity Tracking Resident Involvement: Resident Care Provided Care Provided: Adult Hospital Medicine
--- NOTE | 2021-09-23 17:24 | Hospitalist Progress Note ---
Date of Service September 23, 2021 Assessment & Plan (1) Diverticulitis: (2) Lower GI bleed: (3) Gastroesophageal reflux disease: (4) Depression: (5) Hypothyroidism: (6) CAD (coronary artery disease): Plan: 76 yo F Hx CAD, HTN, CVA, GERD, depression, hypothyroidism admitted for diverticulitis and lower GI bleed Diverticulitis with lower GI bleed -Diagnosed with sigmoid diverticulitis on 09/14 via CTAP and started on Augmentin, acutely worsening pain and complicated by diarrhea with hematochezia leading to current admission -Stool culture negative -Switched from Zosyn in ED to Unasyn. Continue Unasyn. Will be discharged on Augmentin to complete at home. -LGIB possibly due to diverticular inflammation vs hemorrhoids 2/2 chronic constipation given past history. Stool burden noted on CT. -Hgb currently holding stable around 11 and asymptomatic -Pt generally improved over course of stay, is medically stable for discharge now but staying overnight due to not having transport home by family until tomorrow morning -Colonoscopy to be done outpatient 6-8 weeks after resolution of acute illness Syncope -Syncopal incident leading to fall on 09/14 most likely due to vasovagal vs orthostatic causes. Likely some dehydration due to abdominal pain over past 1-2 weeks contributing to decreased oral intake. Also contribution from being in hot shower at the time causing vasodilation -Negative CT head 09/14 CAD with history of CVA -Held Plavix in the setting of lower GIB (pt no longer taking aspirin) -Continue home statin, losartan -Will need to avoid her home Plavix until bloody stools resolve Hypothyroidism: -Continue levothyroxine. Depression: -Continue fluoxetine. Diet:Regular DVT ppx- SCDs Disp: Home in AM Admission and Anticipated Discharge Date Admission Date: September 18, 2021 Subjective Pt reports feeling generally better, mild abdominal pain today decreased from yesterday. Still tolerating diet well without nausea/vomiting. Reports still having some blood in stool. Per nurse report, the blood in stool is scant. Review of Systems Review of Systems: +Mild abdominal pain, scant blood in stool Physical Exam Physical Exam: General- well-appearing, laying in bed without any acute distress HEENT- moist mucous membranes CV- RRR, normal S1 and S2, no murmurs Resp- CTAB, unlabored respirations Abd- mild tenderness of LLQ and LUQ, decreased from yesterday's exam, soft, nondistended, no guarding or rebound Skin- no rashes, warm and dry Neuro- alert and oriented, no focal motor deficits Results & Data Results & Data ([facility]) Vital Signs (Past 12 Hours) Vital Signs Temp Pulse Pulse Resp BP Pulse Ox 09/23/21 15:54 75 09/23/21 15:44 37.0 C 75 19 131/78 75 L 09/23/21 12:10 36.5 C 77 19 112/70 97 09/23/21 07:57 36.9 C 75 18 174/93 H 95 09/23/21 07:12 73 09/23/21 07:00 36.4 C L 83 20 175/78 H 99 Resident Activity Tracking Resident Involvement: Resident Care Provided Care Provided: Adult Hospital Medicine (1) CAD (coronary artery disease) Coronary Disease-Associated Artery/Lesion type: [place] artery [place] vs. transplanted heart: [place] heart Associated angina: without angina Qualified Code(s): I25.10 - Atherosclerotic heart disease of [place] coronary artery without angina pectoris
[2021-09-23] MEDS: oxyCODONE HCL IR 5 MG TAB (IMMEDIATE RELEASE) PO PRN (19:48)
[2021-09-24] MEDS: AMPICILLIN/SULBACTAM SOD 1,500 MG in 0.9 % SODIUM CHLORIDE 100 ML IV SCH ×2 (04:38→10:43)
[2021-09-24] MEDS: ACETAMINOPHEN 500 MG TAB PO SCH ×2 (04:38→10:56)
[2021-09-24] MEDS: LEVOTHYROXINE SODIUM 100 MCG TABLET PO SCH (06:09)
[2021-09-24] MEDS: ATORVASTATIN 40 MG TAB PO SCH (07:10)
[2021-09-24] MEDS: MULTIVITAMIN TAB PO SCH (07:10)
[2021-09-24] MEDS: FLUoxetine HCL 20 MG CAP PO SCH (07:10)
[2021-09-24] MEDS: allopurinoL 300 MG TAB PO SCH (07:10)
[2021-09-24] MEDS: MIRABEGRON ER 25 MG TAB PO SCH (07:11)
[2021-09-24] MEDS: FAMOTIDINE 40 MG TABLET PO SCH (07:11)
[2021-09-24] MEDS: POLYETHYLENE (MIRALAX) 17 GM PACK PO SCH (07:15)
[2021-09-24] MEDS: LOSARTAN POTASSIUM 25 MG TAB PO SCH (07:15)
[2021-09-24 08:11] LABS: Hematocrit (blood only) 36.3 % (37-47); Hemoglobin 11.8 g/dL (12.0-16.0); Mean Corpuscular Hemoglobin 30.3 pg (25-34); Mean Corpuscular Hgb Conc 32.5 g/dL (32-36); Mean Corpuscular Volume 93.1 fL (80-100); Mean Platelet Volume 8.4 fL (7.4-10.4); Platelet Count 379 K/uL (130-400); RDW Coefficient of Variation 16.1 % (11.5-14.5); RDW Standard Deviation 54.9 fL (36.4-46.3); White Blood Count 8.72 K/uL (4.8-10.8)
[2021-09-24 09:20] LABS: BUN Creatinine Ratio 18.3 (10-20); Calcium 9.2 mg/dl (8.5-10.1); Creatinine Clr Calc Pharmacy 75.4 ml/min; Est GFR (African American) 95.2 ml/min; Est GFR (Non-African American) 82.2 ml/min; Potassium 3.4 mmol/L (3.5-5.1)
--- NOTE | 2021-09-24 11:47 | Discharge Summary ---
Date of Service September 24, 2021 Admission HPI Per Admitting Provider 76 yo F Hx CAD, HTN, CVA, GERD, depression presented to the ER for abdominal pain. She was diagnosed incidentally with diverticulitis on 09/14 on CTAP after a fall. She was treated with Augmentin, which she has been taking without missed pills. Reports that over the last two days she has been developing worsening abdominal pain, and today she had several episodes of diarrhea with moderate amount of bright red blood. She denies chest pain, SOB, nausea or vomiting, fevers or chills. She does endorse some lightheadedness today with standing up. She does not endorse previous history of GI bleed. She reports that if she required blood she would want it, but she does not want intubation nor chest compressions. In the ER patient had stable normal vitals. Hgb 12.6 (12.8 on 09/14), Na 134, lipase normal, creatinine normal, troponin negative, COVID 19 negative. Repeat CTAP again showed sigmoid diverticulitis without perforation or abscess.She was started on Zosyn. Admission Exam Per Admitting Provider Constitutional: WD/WN, vitals as above Eyes: PERRL, conjunctivae normal, anicteric sclerae ENMT: external ear and nose normal, oropharynx normal Neck: normal visual inspection Respiratory: normal respiratory effort, lungs clear to auscultation Cardiovascular: RRR, no murmur, no edema Gastrointestinal (Abdomen): Inspection/Auscultation: abdomen normal to inspection and normal bowel sounds Percussion/Palpation: + abdomen tender (mild-moderate in LLQ) and abdomen soft; no guarding Musculoskeletal: no cyanosis or clubbing, extremities motor strength 5/5 Skin: no rashes, warm and dry Neurologic: AAOx3, normal speech. Bilateral UE, LE, and face without sensory or motor deficits. Psychiatric: A+Ox3, euthymic affect Principal Diagnosis Acute sigmoid diverticulitis Discharge Exam General- well-appearing, laying in bed without any acute distress HEENT- moist mucous membranes CV- RRR, normal S1 and S2, no murmurs Resp- CTAB, unlabored respirations Abd- mild tenderness of LLQ and LUQ, decreased from yesterday's exam, soft, nondistended, no guarding or rebound Skin- no rashes, warm and dry Neuro- alert and oriented, no focal motor deficits Discharge Data Allergies Allergy/AdvReac Type Severity Reaction Status Date / Time erythromycin base Allergy Intermediate GASTRIC Verified 04/21/21 09:24 INFLAMATION rofecoxib Allergy Intermediate GASTRIC Verified 04/21/21 09:24 INFLAMATION Consultations 09/18/21 23:09 ED Decision to Admit Stat Ordered Studies 09/18/21 20:11 CT abd pelvis IV con only Stat Hospital Course (1) Diverticulitis: (2) Lower GI bleed: (3) Gastroesophageal reflux disease: (4) Depression: (5) Hypothyroidism: (6) CAD (coronary artery disease): 76 yo F Hx CAD, HTN, CVA, GERD, depression, hypothyroidism admitted for diverticulitis and lower GI bleed. Hospitalized 09/18, discharged 09/24. Diverticulitis with lower GI bleed -Diagnosed with sigmoid diverticulitis on 09/14 via CTAP and started on Augmentin which failed, acutely worsening pain and complicated by diarrhea with hematochezia leading to current admission -Stool culture negative -Switched from Zosyn in ED to Unasyn. Continued Unasyn during stay -LGIB possibly due to diverticular inflammation vs hemorrhoids 2/2 chronic constipation given past history. Stool burden noted on CT. -Hgb currently holding stable around 11 and asymptomatic at time of discharge. Only scant blood in stools largely resolved by time of discharge -Pt generally improved over course of stay, is medically stable for discharge now. Discharged on Augmentin to complete at home. -Colonoscopy should be done outpatient 6-8 weeks after resolution of acute illness Syncope -Syncopal incident leading to fall on 09/14 most likely due to vasovagal vs orthostatic causes. Likely some dehydration due to abdominal pain over past 1-2 weeks contributing to decreased oral intake. Also contribution from being in hot shower at the time causing vasodilation -Negative CT head 09/14 CAD with history of CVA -Held Plavix in the setting of lower GIB (pt no longer taking aspirin) -Continued home statin, losartan -Will need to avoid her home Plavix until bloody stools resolve Hypothyroidism: -Continued levothyroxine. Depression: -Continued fluoxetine. Diet:Regular DVT ppx- SCDs Disp: Home in AM Total Time Total Time Spent Total Time Spent (In Minutes): 20 Discharge Plan Discharge Items Patient Disposition: Home - Home Health Services Reason For Visit: ACUTE DIVERTICULITIS, LOWER GIB Discharge Diagnosis: Acute diverticulitis and lower gastrointestinal bleeding Activity: Per Instructions section Non-emergency contact: Primary Care Provider and Clinical Trials Data Coordinator Call non-emergency contact if: you have any medication questions, your symptoms worsen, your pain is not controlled, your pain is worsening, your pain is concerning for you and you have a fever Follow-up/Referrals: Meño Johnson MD [Primary Care Provider] - 09/30/21 11:00 am () Gela Parikh CRNP [Nurse Practitioner] - 10/02/21 10:20 am () Diet: Heart Healthy and Low Fiber Addtl Attending Provider Instructions: You were admitted to the hospital for diverticulitis, an inflammation of pouches on the colon. You were treated with IV fluids and antibiotics. Your diet was gradually advanced as you could tolerate it. You will need to complete a course of oral antibiotics at home to treat the remainder of the infection. You also need to hydrate appropriately with plenty of fluid intake. While the pain and diarrhea won't fully go away for at least a few days after you finish the antibiotics, it should gradually decrease as you continue treatment and will resolve completely with time. Going forward, you should have a low fiber diet to reduce the risk of future diverticulitis. Avoid / Minimize the following foods: -Bread, pasta, rice -Alcohol -Spicy foods -Excessive citrus fruits -Excessive caffeine -Red meat Try to include more of the following foods in your diet: -Eggs -Pulp free fruit and vegetable juice -Fresh fruits- watermelons, grapes, oranges, limes -Milk, yogurt -Fish -Chicken You also were noted to have some bloody stools while in the hospital. This may have been caused by the diverticulitis but also possibly due to chronic constipation, given you've had hemorrhoids in the past. Your hemoglobin levels were slightly low but stable during your admission, which means you likely weren't having any acute serious bleeding. We expect that the bloody stools will resolve fully as you continue antibiotics and strong fluid intake. Please follow up this issue with your primary care physician. A discharge summary will be sent to your primary care physician to ensure continuity of care. Please bring this discharge summary with you to your next office appointment so that your provider can review it at that time. Follow-up appointments: -Please make a follow up appointment with your PCP for next week. At your appointment, make sure to discuss dietary modification going forward as well as the events of your hospitalization. Medications: Your medication list has been reviewed and reconciled upon discharge to ensure accuracy and continuity of care. An updated list of all your medications is included with your hospital discharge paperwork. Please review this list closely, and make note of any carvajal es. * We sent a new medication called Augmentin to your pharmacy. You should start your first dose this evening. * We advise you to not take your Plavix at least until 10/05; or until you are no longer having blood in your stools. Take your medications as instructed; do not skip a dose of your medicines. Make sure all of your doctors know every medicine you are taking (including [id number] medicines, vitamins, and supplements). Call your primary care provider before taking any new medicines (including [id number] medicines, vitamins, and supplements), because some of these may interact with your current medications, or may make your symptoms worse. Tell your primary care provider if you cannot afford your medications. CONTACT YOUR PRIMARY CARE PROVIDER if you experience any of the following: Fever Abdominal pain Nausea/vomiting Bloody stools Diarrhea Difficulty following your treatment plan, or difficulty taking medications CALL 911 OR GO TO THE EMERGENCY DEPARTMENT if you experience any of the following: Sudden, severe abdominal pain or nausea/vomiting Severe chest pain, or chest pain that radiates (moves) to your jaw or arm Sudden, severe shortness of breath or difficulty breathing Thank you for allowing us to participate in your care. Pending Studies at Discharge: No Stand-Alone Forms: [facility], Smoking Cessation Medications and DC Order Prescriptions: New amoxicillin-pot clavulanate [Augmentin] 875-125 mg tablet 1 tab PO BID 5 Days Qty: 10 RF: 0 Continued cholecalciferol (vitamin D3) [Vitamin D3] 10 mcg (400 unit) tablet 400 unit PO DAILY Qty: 90 RF: 3 multivitamin Tablet 1 tab PO QAM Qty: 90 RF: 3 fluoxetine 20 mg capsule 20 mg PO DAILY Qty: 90 RF: 3 atorvastatin 40 mg tablet 40 mg PO DAILY Qty: 90 RF: 3 levothyroxine [Synthroid] 100 mcg tablet 100 mcg PO DAILY Qty: 90 RF: 3 Myrbetriq 50 mg tablet extended release 24 hr 50 mg PO DAILY Qty: 90 RF: 3 allopurinol 300 mg tablet 300 mg PO DAILY Qty: 90 RF: 3 trospium 20 mg tablet 20 mg PO BID 90 Days Qty: 180 RF: 3 losartan 25 mg tablet 25 mg PO DAILY Qty: 90 RF: 3 Discontinued clopidogrel [Plavix] 75 mg Tablet 75 mg PO DAILY RF: 0 Discharge Orders: Discharge Order (Routine); Ordered 09/24/21 Ordered By: Geovanny Taylor/Other Patient Handouts: ED Diverticulitis Admission Data Admit Date/Time: 09/18/21 23:49 Attending Provider: Geovanny Ruano Admit Provider: Joi Alejo Primary Care Provider: Meño Johnson Other Providers: Asael Gilmore ; [facility] Other Interventions: Discharge Summary Assessment (RN) Last Done: 09/24/21 11:21 Supervising Physician Co-Signing Physician Notes Patient seen and examined independently of PGY-1 Dr. Magaña. Agree with history, exam findings, assessment and plan of care as outlined. In brief, Ms. Zaldivar is a 76 year old female with history of CAD, HTN, prior CVA, depression, hypothyroid admitted with diverticulitis and lower GI bleed. Abdominal pain is improved compared to yesterday. She has had some loose bowel movements but did have a negative C. difficile yesterday. No fevers, chills. No nausea. Per nursing, she only had a scant amount of darker appearing blood with her bowel movement. VS and nursing notes reviewed. Abdomen is soft. Minimal to moderate tenderness in the right and left lower quadrants. No rebound or guarding. Labs and imaging reviewed. 1. Diverticulitis. Sigmoid colon. Failed Augmentin as an outpatient. Received 1 dose of Zosyn on admission. Since then, she has been on Unasyn. She will be discharged on Augmentin. Will need c-scope 6-8 weeks post-hospital discharge. 2. Lower GI bleed. ?secondary to diverticular bleed vs AVM vs internal hemorrhoid. Hgb has been stable and bleeding has ceased. 3. Syncopal episode. Vasovagal vs orthostatic. Resolved. 4. CAD, hx of CVA. Holding Plavix. Continue statin, losartan. She can restart her Plavix when she is no longer having any blood in the stool. Dispo: Discharge home today. I personally spent 20 minutes discharge planning for this patient. Resident Activity Tracking Resident Involvement: Resident Care Provided Care Provided: Adult Hospital Medicine
== END 2021-09-24 13:23 | disposition home health service (06) ==
LOC: ED 14:48 → SUATTDRO 23:49 → INTOOBSV 23:49 → 2N 23:49

== ENCOUNTER 2021-10-02 13:38 | Inpatient (IN) ==
--- NOTE | 2021-10-02 15:57 | Emergency Department Note ---
History of Present Illness General Chief complaint: Illness Stated complaint: POSSIBLE PNEUMONIA AND ULCERTIULITIS Time Seen by Provider: 10/02/21 15:39 Source: patient Mode of arrival: ambulatory Limitations: no limitations History of Present Illness Maximum Pain Intensity: 10 This patient is 76-year-old female who comes in saying "I am sick" she says she has been sick since August she was hospitalized here at the end of August with diverticulitis. She says she is still on antibiotic she is also developed a cold and cough for last couple days or so. No fever. She has had diarrhea since September 14 with blood in it that is not new but it continues. She is had no chest pain or shortness of breath. No nausea or vomiting she does have some mild lower abdominal discomfort. She had Covid testing yesterday she tells me. She has been on Plavix which is a been holding she was seen by her PA yesterday. Home Medications Medication Instructions Recorded Confirmed Type atorvastatin 40 mg tablet 40 mg PO DAILY #90 tab 11/18/20 10/02/21 Rx fluoxetine 20 mg capsule 20 mg PO DAILY #90 cap 11/18/20 10/02/21 Rx levothyroxine 100 mcg tablet 100 mcg PO DAILY #90 tab 11/18/20 10/02/21 Rx (Synthroid) trospium 20 mg tablet 20 mg PO BID 90 Days #180 tab 12/08/20 10/02/21 Rx mirabegron 50 mg tablet,extended 50 mg PO DAILY #90 tab 01/09/21 10/02/21 Rx release 24 hr (Myrbetriq) losartan 25 mg tablet 25 mg PO DAILY #90 tab 04/21/21 10/02/21 Rx allopurinol 300 mg tablet 300 mg PO DAILY #90 tab 04/24/21 10/02/21 Rx amoxicillin 875 mg-potassium 1 tab PO BID 09/30/21 10/02/21 History clavulanate 125 mg tablet (Augmentin) benzonatate 200 mg capsule 200 mg PO TID PRN #30 cap 09/30/21 10/02/21 Rx cholecalciferol (vitamin D3) 10 400 unit PO DAILY #90 tab 09/30/21 10/02/21 Rx mcg (400 unit) tablet (Vitamin D3) multivitamin 1 tab PO QAM #90 tab 09/30/21 10/02/21 Rx Allergies Allergy/AdvReac Type Severity Reaction Status Date / Time erythromycin base Allergy Intermediate GASTRIC Verified 10/02/21 16:09 INFLAMATION rofecoxib Allergy Intermediate GASTRIC Verified 10/02/21 16:09 INFLAMATION Past Med/Surg History Medical History Arthritis Constipation Depression GERD (gastroesophageal reflux disease) HTN (hypertension) Hypothyroidism Metabolic encephalopathy Stroke Surgical History H/O: hysterectomy History of arthroplasty of left ankle History of arthroplasty of right ankle History of arthroscopic knee surgery History of colonoscopy History of surgery on wrist Status post breast reduction Family History Mother Diabetes Hypertension Cardiac disorder Brother Cancer Father Myocardial infarction Other Family history non-contributory Denies family history of Ovarian cancer Prostate cancer Breast cancer Lung cancer Social History Smoking Status: Former smoker Second Hand Exposure: No; Hx Alcohol Use: Yes Hx Substance Use: No Preferred Language: Croatian Communication Ability: Effective Visual Impairment: Partially Limited Hearing Ability: Use of Hearing Aid Galley Boy Required: No Beliefs That Will Affect Care: None marital status: Current Living Situation: Alone Current Living Situation Comment: LOCATED WITHIN [facility] since stroke, Jul, 2018 spouse in snf current occupational status: retired How many Children do You have: 2 Feels Safe at Home: Yes Childhood Exposure to Second-Hand Smoke: Yes caffeine: Yes Dental Care, Regularly: Yes Physical Activity Frequency: Does not Exercise Seatbelt Use: always Sunscreen Use: Yes Assistive Devices: None Review of Systems A total of 10 systems reviewed and were otherwise negative Physical Exam Vital Signs Vital Signs - 24 hr 10/02/21 14:04 10/02/21 17:00 Temperature 36.6 C Temperature Source Temporal Artery Scan Pulse Rate 98 H 97 H Pulse Rate from SpO2 Sensor 97 H Respiratory Rate 18 22 Respiratory Effort / Characteristics Non-Labored Respiratory Depth Normal Blood Pressure 114/71 127/67 Blood Pressure Mean 85 87 Pulse Oximetry 98 96 Oxygen Delivery Method Room Air Sepsis Recent Fever Within 48 Hours No Sepsis New/Unexplained Change in Mental Status No Sepsis Action Taken by Nursing No Action Required General: Well developed well nourished older female who appears in no acute distress, she is coughing frequently but breathing comfortably on room air. Normal speech HEENT: Normal cephalic atraumatic. Pupils are equal round and reactive to light. Extraocular movements are intact. Oropharynx is pink with moist mucous membranes. No swelling of the mouth lips or tongue. Neck: Supple with a midline trachea. No meningeal signs or stiffness, no JVD or bruits. No Stridor. Chest: Clear to auscultation bilaterally. With exception of crackles in the bases mostly on the left. no increased work of breathing. Heart: Regular rate and rhythm without murmurs or gallops. Abdomen: Soft nontender, nondistended without rebound guarding or rigidity. Extremities: No cyanosis clubbing or edema. No calf tenderness or assymetry Spine/Back. Non tender to palpation. No CVA tenderness Skin: Good turgor without rashes. Neurologic exam: Cranial nerves two through 12 are intact. Motor and sensation are intact and symmetrical throughout. Course Administered Medications Discontinued Medications Sodium Chloride (Nss 1000ml) 1,000 mls @ 999 mls/hr IV .Q1H1M ONE Stop: 10/02/21 18:19 Last Admin: 10/02/21 17:29 Dose: 999 mls/hr Documented by: [id number] Ioversol (Optiray 320 125ml) 120 ml IV ONCE ONE Stop: 10/02/21 18:39 Last Admin: 10/02/21 18:38 Dose: 120 ml Documented by: [id number] Medical Decision Making Differential Diagnosis Pneumonia, cardiac disease, sepsis, Covid, electrolyte or metabolic abnormality, diverticulitis disease/complication, GI bleed, cdiff Medical Records Attestation: I reviewed the patient's medical records. Home Medications Current Medication List: was personally reviewed by me Laboratory Data Attestation: I reviewed the patient's lab results. Result diagrams: 10/02/21 16:05 10/02/21 16:05 Lab Results 10/02/21 10/02/21 10/02/21 Range/Units 15:35 15:35 16:05 WBC 8.38 (4.8-10.8) K/uL RBC 3.77 L (4.2-5.4) M/uL Hgb 11.4 L (12.0-16.0) g/dL Hct 34.8 L (37-47) % MCV 92.3 (80-100) fL MCH 30.2 (25-34) pg MCHC 32.8 (32-36) g/dL RDW Std Deviation 55.1 H (36.4-46.3) fL RDW Coeff of Jovani 16.3 H (11.5-14.5) % Plt Count 388 (130-400) K/uL MPV 8.5 (7.4-10.4) fL PT (9.0-12.0) Seconds INR (0.9-1.1) APTT (21.0-31.0) Seconds PTT Ratio Sodium (136-145) mmol/L Potassium (3.5-5.1) mmol/L Chloride (98-107) mmol/L Carbon Dioxide (21-32) mmol/L Anion Gap (3-11) BUN (7-18) mg/dl Creatinine (0.6-1.2) mg/dl Est Cr Clr Drug Dosing Est GFR ( Amer) ml/min Est GFR (Non-Af Amer) ml/min BUN/Creatinine Ratio (10-20) Glucose (70-99) mg/dl Lactate (0.4-2.0) mmol/L Calcium (8.5-10.1) mg/dl Total Bilirubin (0.2-1) mg/dl AST (15-37) U/L ALT (12-78) U/L Alkaline Phosphatase (45-117) U/L Total Protein (6.4-8.2) gm/dl Albumin (3.4-5.0) gm/dl Globulin (2.5-4.0) gm/dl Albumin/Globulin Ratio (0.9-2) Procalcitonin (0-0.5) ng/ml COVID-19 Eval Order Covid19 at [facility] SARS-CoV-2 (PCR) NEGATIVE (Negative) Blood Type Antibody Screen 10/02/21 10/02/21 10/02/21 Range/Units 16:05 16:05 16:05 WBC (4.8-10.8) K/uL RBC (4.2-5.4) M/uL Hgb (12.0-16.0) g/dL Hct (37-47) % MCV (80-100) fL MCH (25-34) pg MCHC (32-36) g/dL RDW Std Deviation (36.4-46.3) fL RDW Coeff of Jovani (11.5-14.5) % Plt Count (130-400) K/uL MPV (7.4-10.4) fL PT 10.6 (9.0-12.0) Seconds INR 1.0 (0.9-1.1) APTT 26.2 (21.0-31.0) Seconds PTT Ratio 1.0 Sodium 132 L (136-145) mmol/L Potassium 3.2 L (3.5-5.1) mmol/L Chloride 100 (98-107) mmol/L Carbon Dioxide 25 (21-32) mmol/L Anion Gap 7.0 (3-11) BUN 10 (7-18) mg/dl Creatinine 1.02 (0.6-1.2) mg/dl Est Cr Clr Drug Dosing Not Reportable Est GFR ( Amer) 61.4 ml/min Est GFR (Non-Af Amer) 53.0 ml/min BUN/Creatinine Ratio 9.4 L (10-20) Glucose 128 H (70-99) mg/dl Lactate 2.5 H* (0.4-2.0) mmol/L Calcium 8.8 (8.5-10.1) mg/dl Total Bilirubin 0.5 (0.2-1) mg/dl AST 11 L (15-37) U/L ALT 17 (12-78) U/L Alkaline Phosphatase 91 (45-117) U/L Total Protein 7.3 (6.4-8.2) gm/dl Albumin 2.8 L (3.4-5.0) gm/dl Globulin 4.5 H (2.5-4.0) gm/dl Albumin/Globulin Ratio 0.6 L (0.9-2) Procalcitonin (0-0.5) ng/ml COVID-19 Eval Order SARS-CoV-2 (PCR) (Negative) Blood Type Antibody Screen 10/02/21 10/02/21 10/02/21 Range/Units 16:05 16:17 18:20 WBC (4.8-10.8) K/uL RBC (4.2-5.4) M/uL Hgb (12.0-16.0) g/dL Hct (37-47) % MCV (80-100) fL MCH (25-34) pg MCHC (32-36) g/dL RDW Std Deviation (36.4-46.3) fL RDW Coeff of Jovani (11.5-14.5) % Plt Count (130-400) K/uL MPV (7.4-10.4) fL PT (9.0-12.0) Seconds INR (0.9-1.1) APTT (21.0-31.0) Seconds PTT Ratio Sodium (136-145) mmol/L Potassium (3.5-5.1) mmol/L Chloride (98-107) mmol/L Carbon Dioxide (21-32) mmol/L Anion Gap (3-11) BUN (7-18) mg/dl Creatinine (0.6-1.2) mg/dl Est Cr Clr Drug Dosing Est GFR ( Amer) ml/min Est GFR (Non-Af Amer) ml/min BUN/Creatinine Ratio (10-20) Glucose (70-99) mg/dl Lactate 1.5 (0.4-2.0) mmol/L Calcium (8.5-10.1) mg/dl Total Bilirubin (0.2-1) mg/dl AST (15-37) U/L ALT (12-78) U/L Alkaline Phosphatase (45-117) U/L Total Protein (6.4-8.2) gm/dl Albumin (3.4-5.0) gm/dl Globulin (2.5-4.0) gm/dl Albumin/Globulin Ratio (0.9-2) Procalcitonin 0.07 (0-0.5) ng/ml COVID-19 Eval Order SARS-CoV-2 (PCR) (Negative) Blood Type O Negative Antibody Screen NEGATIVE Imaging Data Attestation: I personally reviewed and interpreted this imaging study as follows: My Impression: Chest x-rayno acute infiltrate, failure, pneumothorax Radiologist's Impression: Chest X-Ray 10/02/21 17:18 XR chest 1V portable CLINICAL HISTORY: cough TECHNIQUE: Single frontal radiograph of the chest was obtained. Comparison: Comparison is made to chest one view 05/05/2019 FINDINGS: No lines and tubes are seen. The cardiomediastinal silhouette is normal. The lungs are clear. No evidence of pleural effusion or pneumothorax. IMPRESSION: No acute abnormality and in particular no evidence of pneumonia. ACT 112: Negative or not required by law. Electronically signed by: Jaswant Estes M.D. 10/02/2021 5:43 PM Abdomen/Pelvis CT 10/02/21 17:20 CT abd pelvis IV con only CLINICAL HISTORY: eval for diverticulits TECHNIQUE: Helical axial images of the abdomen and pelvis were obtained and displayed. Automated dose lowering techniques and/or adjustment according to patient size were utilized for this exam. This exam was performed with intravenous contrast. COMPARISON: None available at the time of this dictation. FINDINGS: Lower chest: Cardiomegaly is partially visualized. Liver: Hepatic cyst is seen. Gallbladder and biliary tree: No calcified gallstones. Normal caliber wall. No intra- or extrahepatic biliary ductal dilation. Pancreas: Unremarkable, no focal lesions. Spleen: Unremarkable. Adrenals: Unremarkable. Kidneys and ureters: Bilateral extrarenal pelvis is seen. Subcentimeter hypodensity at the inferior aspect of the right kidney is too small to characterize. Bladder: Unremarkable. Reproductive organs: Unremarkable. Bowel: Numerous diverticula are seen in the sigmoid colon. There is increased vascularity compatible with diverticulitis. No evidence of abscess or perforation. Mild wall thickening is also noted in the ascending colon as well. Lymph nodes Retroperitoneal: Unremarkable. Mesenteric: Unremarkable. Pelvic: Unremarkable. Peritoneum: Normal Vessels: Unremarkable. Abdominal wall: Right fat-containing inguinal hernia. Bones: Degenerative changes in the visualized spine. IMPRESSION: Acute diverticulitis of the sigmoid colon without evidence of perforation or abscess formation. ACT 112: Negative or not required by law. Electronically signed by: Jaswant Estes M.D. 10/02/2021 6:44 PM Chest CTA 10/02/21 18:28 CT angio chest PE protocol CLINICAL HISTORY: PE TECHNIQUE: Multidetector row helical CT of the chest was performed. Coronal and sagittal reformations were obtained. Automated dose lowering techniques and/or adjustment according to patient size were utilized for this exam. Comparison: Comparison is made to CT chest 09/14/2021 FINDINGS: Lungs and pleura: Normal. Heart and pericardium: There is cardiomegaly without evidence of pericardial effusion. Vessels: No evidence of pulmonary embolism. Mediastinum and ambika: Unremarkable. Chest wall and lower neck: Unremarkable. Abdomen: A hiatal hernia is seen. Bones: Degenerative changes in the thoracic spine. IMPRESSION: No evidence of pulmonary embolism. ACT 112: Negative or not required by law. Electronically signed by: Jaswnat Estes M.D. 10/02/2021 6:51 PM ECG Data Attestation: I personally reviewed and interpreted this ECG as follows: Indication: + weakness Rate (beats per minute): 96 Rhythm: + sinus bradycardia ECG Intervals/blocks: + Normal QRS, + Normal QT and + Normal NH ECG Omega: + Normal ECG ST segments: + Normal ST segments ECG Findings: + Q waves (Old inferior Q waves that are unchanged from previous); no PACs or no PVCs Comparison ECG Date: from (09/18/21) Change: no significant change MDM Narrative This patient comes in as described above she has multiple complaints and just does not feel well she has been treated for diverticulitis recently and continues have diarrhea and some blood in her stool at times. She apparently tested Covid negative yesterday but continues to have cough. A full sepsis type work-up was obtained . IV access was obtained and cardiac work-up was obtained as well. She was reassessed frequently. Chest x-ray was clear and she is not hypoxemic she is coughing frequently. Covid testing was negative. EKG does not suggest acute coronary syndrome or arrhythmia. Her potassium is mildly low at 3.2 however the other electrolytes look okay. Her procalcitonin is also normal which would go against an infection. Her lactic acid is mildly elevated 2.5 she was hydrated with 1 L normal saline bolus. I did order stool studies that she has been having diarrhea and had recent antibiotics. I also ordered a CT of her abdomen as she had recent diverticulitis. Because she was coughing and chest x- ray looked negative I did do a CTA of her chest to which was unremarkable for PE or pulmonary abnormality seen. CT her abdomen again shows diverticulitis but no abscess or perforation. With her ongoing symptoms and her elevated lactic acid I did order Unasyn 3 g IV. She has had some rectal bleeding which has been going on since she was in the hospital and her hemoglobin has not dropped. I do think she needs to be admitted/observe for further inpatient treatment evaluation of consulted the [facility] hospitalist for these measures. The lactic acid is clearing on follow-up lactate level. Dr. España will see the patient in the ER for these measures Continuous cardiac monitoring: Orders placed in EMR for continuous cardiac monitoring. Upon my interpretation the patient was noted to be in normal sinus rhythm with a rate of 95. Impression & Plan Diverticulitis, Abdominal pain, Rectal bleed, COVID-19 virus antibody negative, Cough, Weakness, Acute dehydration, Elevated lactic acid level Discharge Plan Visit Data Chief Complaint: Illness Stated Complaint: POSSIBLE PNEUMONIA AND ULCERTIULITIS ED Provider: Ivan Story Discharge Problem: Diverticulitis, Abdominal pain, Rectal bleed, COVID-19 virus antibody negative, Cough, Weakness, Acute dehydration, Elevated lactic acid level Forms Stand Alone Forms: My [facility] Prescriptions Prescriptions: No Action fluoxetine 20 mg capsule 20 mg PO DAILY Qty: 90 RF: 3 atorvastatin 40 mg tablet 40 mg PO DAILY Qty: 90 RF: 3 levothyroxine [Synthroid] 100 mcg tablet 100 mcg PO DAILY Qty: 90 RF: 3 Myrbetriq 50 mg tablet extended release 24 hr 50 mg PO DAILY Qty: 90 RF: 3 allopurinol 300 mg tablet 300 mg PO DAILY Qty: 90 RF: 3 cholecalciferol (vitamin D3) [Vitamin D3] 10 mcg (400 unit) tablet 400 unit PO DAILY Qty: 90 RF: 3 multivitamin Tablet 1 tab PO QAM Qty: 90 RF: 3 trospium 20 mg tablet 20 mg PO BID 90 Days Qty: 180 RF: 3 amoxicillin-pot clavulanate [Augmentin] 875-125 mg tablet 1 tab PO BID RF: 0 benzonatate 200 mg capsule 200 mg PO TID PRN (Reason: cough) Qty: 30 RF: 0 losartan 25 mg tablet 25 mg PO DAILY Qty: 90 RF: 3 Referrals Referrals: Meño Johnson MD [Primary Care Provider] - Discharge Problem: Abdominal pain Qualifiers: Abdominal location: left lower quadrant Qualified Code(s): R10.32 - Left lower quadrant pain
[2021-10-02 16:22] LABS: Hematocrit (blood only) 34.8 % (37-47); Hemoglobin 11.4 g/dL (12.0-16.0); Mean Corpuscular Hemoglobin 30.2 pg (25-34); Mean Corpuscular Hgb Conc 32.8 g/dL (32-36); Mean Corpuscular Volume 92.3 fL (80-100); Mean Platelet Volume 8.5 fL (7.4-10.4); Platelet Count 388 K/uL (130-400); RDW Coefficient of Variation 16.3 % (11.5-14.5); RDW Standard Deviation 55.1 fL (36.4-46.3); Red Blood Count 3.77 M/uL (4.2-5.4); White Blood Count 8.38 K/uL (4.8-10.8)
[2021-10-02 16:35] LABS: Partial Thromboplastin Time 26.2 Seconds (21.0-31.0); Prothrombin Time 10.6 Seconds (9.0-12.0)
[2021-10-02 16:42] LABS: Albumin Level 2.8 gm/dl (3.4-5.0); Aspartate Aminotransferase 11 U/L (15-37); BUN Creatinine Ratio 9.4 (10-20); Blood Urea Nitrogen 10 mg/dl (7-18); Calcium 8.8 mg/dl (8.5-10.1); Carbon Dioxide 25 mmol/L (21-32); Chloride 100 mmol/L (98-107); Est GFR (African American) 61.4 ml/min; Glucose 128 mg/dl (70-99); Potassium 3.2 mmol/L (3.5-5.1); Sodium 132 mmol/L (136-145)
[2021-10-02 17:06] LABS: Alanine Aminotransferase 17 U/L (12-78); Albumin Globulin Ratio 0.6 (0.9-2); Alkaline Phosphatase 91 U/L (45-117); Bilirubin,Total 0.5 mg/dl (0.2-1); Globulin 4.5 gm/dl (2.5-4.0); Total Protein 7.3 gm/dl (6.4-8.2)
[2021-10-02] MEDS ORDERED: SODIUM CHLORIDE 0.9% 1000ML 1,000 ML IV ONE (17:19)
--- NOTE | 2021-10-02 17:44 | XRay Report ---
XR chest 1V portable CLINICAL HISTORY: cough TECHNIQUE: Single frontal radiograph of the chest was obtained. Comparison: Comparison is made to chest one view 05/05/2019 FINDINGS: No lines and tubes are seen. The cardiomediastinal silhouette is normal. The lungs are clear. No evid ence of pleural effusion or pneumothorax. IMPRESSION: No acute abnormality and in particular no evidence of pneumonia. ACT 112: Negative or not required by law. Electronically signed by: Jaswant Estes M.D. 10/02/2021 5:43 PM
[2021-10-02] MEDS ORDERED: OPTIRAY 320 125ml IV ONE (18:38)
--- NOTE | 2021-10-02 18:45 | CT Scan Report ---
CT abd pelvis IV con only CLINICAL HISTORY: eval for diverticulits TECHNIQUE: Helical axial images of the abdomen and pelvis were obtained and displayed. Automated dose lowering techniques and/or adjustment according to patient size were utilized for this exam. This e xam was performed with intravenous contrast. COMPARISON: None available at the time of this dictation. FINDINGS: Lower chest: Cardiomegaly is partially visualized. Liver: Hepatic cyst is seen. Gallbladder and biliary tree: No calcified gallstones. Normal caliber wall. No intra- or extrahepatic biliary ductal dilation. Pancreas: Unremarkable, no focal lesions. Spleen: Unremarkable. Adrenals: Unremarkable. Kidneys and ureters: Bilateral extrarenal pelvis is seen. Subcentimeter hypodensity at the inferior a spect of the right kidney is too small to characterize. Bladder: Unremarkable. Reproductive organs: Unremarkable. Bowel: Numerous diverticula are seen in the sigmoid colon. There is increased vascularity compatible with diverticulitis. No evidence of abscess or perforation. Mild wall thickening is also noted in the ascending colon as well. Lymph nodes Retroperitoneal: Unremarkable. Mesenteric: Unremarkable. Pelvic: Unremarkable. Peritoneum: Normal Vessels: Unremarkable. Abdominal wall: Right fat-containing inguinal hernia. Bones: Degenerative changes in the visualized spine. IMPRESSION: Acute diverticulitis of the sigmoid colon without evidence of perforation or abscess formation. ACT 112: Negative or not required by law. Electronically signed by: Jaswant Estes M.D. 10/02/2021 6:44 PM
[2021-10-02] MEDS ORDERED: guaiFENesin SUGAR FREE 100 MG/5 ML UDC PO STA (18:51)
--- NOTE | 2021-10-02 18:53 | CT Scan Report ---
CT angio chest PE protocol CLINICAL HISTORY: PE TECHNIQUE: Multidetector row helical CT of the chest was performed. Coronal and sagittal reformations were obtained. Automated dose lowering techniques and/or adjustment according to patient size were u tilized for this exam. Comparison: Comparison is made to CT chest 09/14/2021 FINDINGS: Lungs and pleura: Normal. Heart and pericardium: There is cardiomegaly without evidence of pericardial effusion. Vessels: No evidence of pulmonary embolism. Mediastinum and ambika: Unremarkable. Chest wall and lower neck: Unremarkable. Abdomen: A hiatal hernia is seen. Bones: Degenerative changes in the thoracic spine. IMPRESSION: No evidence of pulmonary embolism. ACT 112: Negative or not required by law. Electronically signed by: Jaswant Estes M.D. 10/02/2021 6:51 PM
[2021-10-02] MEDS ORDERED: PIPERACILLIN/TAZOBACTAM 4.5 GM/120 ML BAG IV ONE (18:59)
[2021-10-02] MEDS ORDERED: PIPERACILL/TAZOBAC CONSULT ACTIVE PRN (18:59)
[2021-10-02] MEDS ORDERED: AMPICILLIN/SULBACTAM SOD 3,000 MG in 0.9 % SODIUM CHLORIDE 100 ML IV STA (19:00)
[2021-10-02] MEDS ORDERED: AMPICILLIN/SULBACTAM SOD 3,000 MG in 0.9 % SODIUM CHLORIDE 100 ML IV SCH (19:46)
--- NOTE | 2021-10-02 19:46 | History & Physical Report ---
Date of Service October 02, 2021 Assessment & Plan (1) Diverticulitis: Plan: Recurrent/persistent diverticulitis of sigmoid colon- Full liquid diet Unasyn 3 g IV every 6 hours Famotidine 20 mg IV every 12 hours Zofran 4 mg IV every 6 hours as needed NSS + KCl 20 mEq at 80 mils per hour x1 L Follow CBC with differential, chemistry profile (2) Upper respiratory infection: Plan: Duonebs every 4 hours while awake and every 2 hours when necessary. Azithromycin 500 mg IV daily Guaifenesin extended release 1200 mg p.o. twice daily (3) Lower GI bleed: Plan: See above (4) Dyslipidemia: Plan: Continue atorvastatin 40 mg daily (5) Gastroesophageal reflux disease: Plan: Famotidine IV as noted above (6) Hypothyroidism: Plan: Continue levothyroxine 100 mcg daily (7) Urge incontinence of urine: Plan: Continue mirabegron (8) Depression: Plan: Continue fluoxetine (9) Hypokalemia due to excessive gastrointestinal loss of potassium: Plan: Supplementation with IV fluids as noted above (10) CAD (coronary artery disease): Plan: CAD/hypertension- No acute symptoms- Temporarily hold losartan (11) HTN (hypertension): Plan: See above (12) Obstructive sleep apnea: Plan: CPAP at bedtime as needed (13) Hypomagnesemia: Plan: Give mag sulfate 1 g IV, and repeat labs in a.m. History of Present Illness Chief Complaint: The patient presents to the emergency department with a persistence of symptoms of diverticulitis and lower GI bleed since discharge on 09/24, but in addition, has developed cold symptoms of a moist cough and shortness of breath. Primary Care Provider: Meño Johnson MD The patient is a 76-year-old female with a past medical history including diverticulitis, lower GI bleed, urinary bladder incontinence, gait abnormality, CRYSTAL, mixed aphasia, dyslipidemia, GERD, multiple pulmonary nodules, vitamin D deficiency, depression, hypothyroidism, left MCA stroke, CAD, arthritis and hypertension. The patient was admitted from 09/18-09/24 for acute diverticulitis with lower GI bleed. She was placed on Unasyn IV to admission, and converted to Augmentin upon discharge, which she continues to take at this time. As noted, she had developed a moist cough and cold symptoms over the past few days. Abnormal laboratories: Sodium 132, potassium 3.2, glucose 128, albumin 2.8., Magnesium 1.7. Patient is C. difficile gene negative, COVID-19 negative, and influenza A negative. CT scan abdomen pelvis IV contrast only: Acute diverticulitis of the sigmoid colon without evidence of perforation or abscess formation CT angiography of chest: No evidence of a pulmonary embolism Allergies Allergy/AdvReac Type Severity Reaction Status Date / Time erythromycin base Allergy Intermediate GASTRIC Verified 10/02/21 16:09 INFLAMATION rofecoxib Allergy Intermediate GASTRIC Verified 10/02/21 16:09 INFLAMATION Home Medications Medication Instructions Recorded Confirmed Type atorvastatin 40 mg tablet 40 mg PO DAILY #90 tab 11/18/20 10/02/21 Rx fluoxetine 20 mg capsule 20 mg PO DAILY #90 cap 11/18/20 10/02/21 Rx levothyroxine 100 mcg tablet 100 mcg PO DAILY #90 tab 11/18/20 10/02/21 Rx (Synthroid) trospium 20 mg tablet 20 mg PO BID 90 Days #180 tab 12/08/20 10/02/21 Rx mirabegron 50 mg tablet,extended 50 mg PO DAILY #90 tab 01/09/21 10/02/21 Rx release 24 hr (Myrbetriq) losartan 25 mg tablet 25 mg PO DAILY #90 tab 04/21/21 10/02/21 Rx allopurinol 300 mg tablet 300 mg PO DAILY #90 tab 04/24/21 10/02/21 Rx amoxicillin 875 mg-potassium 1 tab PO BID 09/30/21 10/02/21 History clavulanate 125 mg tablet (Augmentin) benzonatate 200 mg capsule 200 mg PO TID PRN #30 cap 09/30/21 10/02/21 Rx cholecalciferol (vitamin D3) 10 400 unit PO DAILY #90 tab 09/30/21 10/02/21 Rx mcg (400 unit) tablet (Vitamin D3) multivitamin 1 tab PO QAM #90 tab 09/30/21 10/02/21 Rx Past Med/Surg History Medical History Arthritis Constipation Depression GERD (gastroesophageal reflux disease) HTN (hypertension) Hypothyroidism Metabolic encephalopathy Stroke Surgical History H/O: hysterectomy History of arthroplasty of left ankle History of arthroplasty of right ankle History of arthroscopic knee surgery History of colonoscopy History of surgery on wrist Status post breast reduction Family History Mother Diabetes Hypertension Cardiac disorder Brother Cancer Father Myocardial infarction Other Family history non-contributory Denies family history of Ovarian cancer Prostate cancer Breast cancer Lung cancer Social History Smoking Status: Never smoker Second Hand Exposure: No; Do You Dip or Chew Tobacco: No; Tobacco Cessation Education Requested by Patient: No Hx Alcohol Use: No Hx Substance Use: No Preferred Language: Azeri Communication Ability: Effective Visual Impairment: Partially Limited Hearing Ability: Use of Hearing Aid Automation Consultant Required: No Beliefs That Will Affect Care: None marital status: Current Living Situation: Alone Current Living Situation Comment: [facility] since stroke, Jul, 2018 [place] in [place] [facility] current occupational status: retired How many Children do You have: 2 Other Information That Helps Us Care for You: No Feels Safe at Home: Yes Safety Concerns: Feels Safe At This Time Childhood Exposure to Second-Hand Smoke: Yes caffeine: Yes Dental Care, Regularly: Yes Physical Activity Frequency: Does not Exercise Seatbelt Use: always Sunscreen Use: Yes Assistive Devices: Walker Review of Systems Review of Systems: The patient denies chest pain, palpitations, lower extremity swelling, sore throat, fevers, chills, sweats, vomiting, nausea blood in urine, dysuria, urinary frequency or urgency, lightheadedness, dizziness, headache, memory loss, loss of consciousness, rash, imbalance, focal weakness, numbness or tingling in arms or legs, generalized arthralgias or myalgias, back or neck pain, or night sweats. The review of systems is otherwise negative other than for that already noted above, and at least 10 systems have been reviewed. Physical Exam Physical Exam: The patient is awake, alert and oriented 3, well developed and well nourished, normocephalic and atraumatic, lying in bed and in no acute distress. HEENT--PERRL, EOMI, mucous membranes and oropharynx dry. Neck--supple. No JVD. No bruits. Thyroid normal, trachea midline, no adenopathy. Heart--normal S1 and S2. No murmurs, rubs or gallops. Lungs--clear bilaterally, no respiratory distress, no accessory muscle use. Abdomen--normal bowel sounds and soft. Mild left lower quadrant tenderness. Nondistended. Extremities--no cyanosis or clubbing. No edema. Dermatologic--normal skin turgor, normal color, no abnormal lymph nodes, no rash. Neurologic--cranial nerves II through XII grossly intact. Rheumatologic--normal range of motion. Psychiatric--normal affect. Results & Data Results & Data ([facility]) Vital Signs (Past 12 Hours) Vital Signs Temp Pulse Resp BP Pulse Ox 10/02/21 17:00 97 H 22 127/67 96 10/02/21 14:04 97.9 F 98 H 18 114/71 98 Laboratory Results Laboratory Results WBC 8.38 K/uL (4.8-10.8) 10/02/21 16:05 RBC 3.77 M/uL (4.2-5.4) L 10/02/21 16:05 Hgb 11.4 g/dL (12.0-16.0) L 10/02/21 16:05 Hct 34.8 % (37-47) L 10/02/21 16:05 MCV 92.3 fL (80-100) 10/02/21 16:05 MCH 30.2 pg (25-34) 10/02/21 16:05 MCHC 32.8 g/dL (32-36) 10/02/21 16:05 RDW Std Deviation 55.1 fL (36.4-46.3) H 10/02/21 16:05 RDW Coeff of Jovani 16.3 % (11.5-14.5) H 10/02/21 16:05 Plt Count 388 K/uL (130-400) 10/02/21 16:05 MPV 8.5 fL (7.4-10.4) 10/02/21 16:05 PT 10.6 Seconds (9.0-12.0) 10/02/21 16:05 INR 1.0 (0.9-1.1) 10/02/21 16:05 APTT 26.2 Seconds (21.0-31.0) 10/02/21 16:05 PTT Ratio 1.0 10/02/21 16:05 Sodium 132 mmol/L (136-145) L 10/02/21 16:05 Potassium 3.2 mmol/L (3.5-5.1) L 10/02/21 16:05 Chloride 100 mmol/L (98-107) 10/02/21 16:05 Carbon Dioxide 25 mmol/L (21-32) 10/02/21 16:05 Anion Gap 7.0 (3-11) 10/02/21 16:05 BUN 10 mg/dl (7-18) 10/02/21 16:05 Creatinine 1.02 mg/dl (0.6-1.2) 10/02/21 16:05 Est Cr Clr Drug Dosing Not Reportable 10/02/21 16:05 Est GFR ( Amer) 61.4 ml/min 10/02/21 16:05 Est GFR (Non-Af Amer) 53.0 ml/min 10/02/21 16:05 BUN/Creatinine Ratio 9.4 (10-20) L 10/02/21 16:05 Glucose 128 mg/dl (70-99) H 10/02/21 16:05 Lactate 1.5 mmol/L (0.4-2.0) 10/02/21 18:20 Calcium 8.8 mg/dl (8.5-10.1) 10/02/21 16:05 Magnesium 1.7 mg/dl (1.8-2.4) L 10/02/21 16:05 Total Bilirubin 0.5 mg/dl (0.2-1) 10/02/21 16:05 AST 11 U/L (15-37) L 10/02/21 16:05 ALT 17 U/L (12-78) 10/02/21 16:05 Alkaline Phosphatase 91 U/L (45-117) 10/02/21 16:05 Total Protein 7.3 gm/dl (6.4-8.2) 10/02/21 16:05 Albumin 2.8 gm/dl (3.4-5.0) L 10/02/21 16:05 Globulin 4.5 gm/dl (2.5-4.0) H 10/02/21 16:05 Albumin/Globulin Ratio 0.6 (0.9-2) L 10/02/21 16:05 Procalcitonin 0.07 ng/ml (0-0.5) 10/02/21 16:05 Stl C. diff Tox B Gene Negative Cdiff Gene (Neg) 10/02/21 Unknown COVID-19 Eval Order Covid19 at [facility] 10/02/21 15:35 SARS-CoV-2 (PCR) NEGATIVE (Negative) 10/02/21 15:35 Influ A Molecular Assay Negative (Negative) 10/02/21 15:35 Influ B Molecular Assay Negative (Negative) 10/02/21 15:35 Blood Type O Negative 10/02/21 16:17 Antibody Screen NEGATIVE 10/02/21 16:17 Impressions Chest X-Ray 10/02/21 17:18 XR chest 1V portable CLINICAL HISTORY: cough TECHNIQUE: Single frontal radiograph of the chest was obtained. Comparison: Comparison is made to chest one view 05/05/2019 FINDINGS: No lines and tubes are seen. The cardiomediastinal silhouette is normal. The lungs are clear. No evidence of pleural effusion or pneumothorax. IMPRESSION: No acute abnormality and in particular no evidence of pneumonia. ACT 112: Negative or not required by law. Electronically signed by: Jaswant Estes M.D. 10/02/2021 5:43 PM Abdomen/Pelvis CT 10/02/21 17:20 CT abd pelvis IV con only CLINICAL HISTORY: eval for diverticulits TECHNIQUE: Helical axial images of the abdomen and pelvis were obtained and displayed. Automated dose lowering techniques and/or adjustment according to patient size were utilized for this exam. This exam was performed with intravenous contrast. COMPARISON: None available at the time of this dictation. FINDINGS: Lower chest: Cardiomegaly is partially visualized. Liver: Hepatic cyst is seen. Gallbladder and biliary tree: No calcified gallstones. Normal caliber wall. No intra- or extrahepatic biliary ductal dilation. Pancreas: Unremarkable, no focal lesions. Spleen: Unremarkable. Adrenals: Unremarkable. Kidneys and ureters: Bilateral extrarenal pelvis is seen. Subcentimeter hypodensity at the inferior aspect of the right kidney is too small to characterize. Bladder: Unremarkable. Reproductive organs: Unremarkable. Bowel: Numerous diverticula are seen in the sigmoid colon. There is increased vascularity compatible with diverticulitis. No evidence of abscess or perforation. Mild wall thickening is also noted in the ascending colon as well. Lymph nodes Retroperitoneal: Unremarkable. Mesenteric: Unremarkable. Pelvic: Unremarkable. Peritoneum: Normal Vessels: Unremarkable. Abdominal wall: Right fat-containing inguinal hernia. Bones: Degenerative changes in the visualized spine. IMPRESSION: Acute diverticulitis of the sigmoid colon without evidence of perforation or abscess formation. ACT 112: Negative or not required by law. Electronically signed by: Jaswant Estes M.D. 10/02/2021 6:44 PM Chest CTA 10/02/21 18:28 CT angio chest PE protocol CLINICAL HISTORY: PE TECHNIQUE: Multidetector row helical CT of the chest was performed. Coronal and sagittal reformations were obtained. Automated dose lowering techniques and/or adjustment according to patient size were utilized for this exam. Comparison: Comparison is made to CT chest 09/14/2021 FINDINGS: Lungs and pleura: Normal. Heart and pericardium: There is cardiomegaly without evidence of pericardial effusion. Vessels: No evidence of pulmonary embolism. Mediastinum and ambika: Unremarkable. Chest wall and lower neck: Unremarkable. Abdomen: A hiatal hernia is seen. Bones: Degenerative changes in the thoracic spine. IMPRESSION: No evidence of pulmonary embolism. ACT 112: Negative or not required by law. Electronically signed by: Jaswant Estes M.D. 10/02/2021 6:51 PM Code Status & VTE Plan Code Status Full code VTE Prophylaxis Plan VTE Prophylaxis will be ordered: Yes PG Care Time/CCT Total # of Minutes Spent Total Time Spent with Patient: Total time spent is greater than 50% in coordination of care (as documented) at patient's floor/unit and/or counseling patient: Coding Level of Care Code 69164 Initial Inpt Care Lvl 3 Diagnoses Diverticulitis K57.92 Upper respiratory infection J06.9 Lower GI bleed K92.2 Dyslipidemia E78.5 Gastroesophageal reflux disease K21.9 Hypothyroidism E03.9 Urge incontinence of urine N39.41 Depression F32.9 Hypokalemia due to excessive gastrointestinal loss of potassium E87.6 CAD (coronary artery disease) I25.10 Coronary Disease-Associated Artery/Lesion type: [place] artery [place] vs. transplanted heart: tribe heart Associated angina: without angina HTN (hypertension) I10 Hypertension type: essential hypertension Obstructive sleep apnea G47.33 Hypomagnesemia E83.42 (1) CAD (coronary artery disease) Coronary Disease-Associated Artery/Lesion type: [place] artery [place] vs. transplanted heart: tribe heart Associated angina: without angina Qualified Code(s): I25.10 - Atherosclerotic heart disease of tribe coronary artery without angina pectoris (2) HTN (hypertension) Hypertension type: essential hypertension Qualified Code(s): I10 - Essential (primary) hypertension
[2021-10-02 21:41] LABS: Influenza A virus by PCR Negative (Negative); Influenza B virus by PCR Negative (Negative)
[2021-10-02] MEDS ORDERED: MAGNESIUM SULFATE / D5W 1 GM/100 ML BAG IV ONE (23:09)
[2021-10-02] MEDS ORDERED: FAMOTIDINE 20MG/5ML IV PUSH IV ONE (23:43)
[2021-10-03] MEDS: FAMOTIDINE 20 MG in SYRINGE 3 ML IV SCH ×3 (00:05→21:11)
[2021-10-03] MEDS ORDERED: ONDANSETRON INJ 2 MG/ML 2 ML VIAL IV PRN (02:12)
[2021-10-03] MEDS ORDERED: ACETAMINOPHEN 325 MG TAB PO PRN (02:12)
[2021-10-03] MEDS ORDERED: NSS + 20MEQ KCL 20 MEQ/1,000 ML BAG IV SCH (02:12)
[2021-10-03] MEDS: AMPICILLIN/SULBACTAM SOD 3,000 MG in 0.9 % SODIUM CHLORIDE 100 ML IV SCH ×2 (02:20→22:22)
[2021-10-03] MEDS ORDERED: AZITHROMYCIN 500 MG in DEXTROSE 5% 250 ML IV SCH (03:00)
[2021-10-03] MEDS: guaiFENesin 600 MG TABCR PO SCH ×2 (03:20→09:51)
[2021-10-03] MEDS: HEPARIN SOD 5,000 UNIT/0.5 ML VIAL SQ SCH ×3 (03:20→20:56)
[2021-10-03] MEDS: LEVOTHYROXINE SODIUM 100 MCG TABLET PO SCH (05:36)
[2021-10-03] MEDS: ALBUT/IPRATROP 3MG/0.5MG NEB 3 ML VIAL NEB SCH ×4 (07:10→19:30)
[2021-10-03 07:30] LABS: Basophils # (auto) 0.04 K/uL (0-0.2); Basophils % (auto) 0.5 %; Eosinophils # (auto) 0.46 K/uL (0-0.5); Eosinophils % (auto) 5.9 %; Hematocrit (blood only) 31.6 % (37-47); Hemoglobin 10.4 g/dL (12.0-16.0); Immature Granulocytes # (auto) 0.02 K/uL (0.00-0.02); Immature Granulocytes % (auto) 0.3 %; Lymphocytes # (auto) 1.75 K/uL (1.2-3.4); Lymphocytes % (auto) 22.4 %; Mean Corpuscular Hemoglobin 30.4 pg (25-34); Mean Corpuscular Hgb Conc 32.9 g/dL (32-36); Mean Corpuscular Volume 92.4 fL (80-100); Mean Platelet Volume 8.8 fL (7.4-10.4); Monocytes # (auto) 2.05 K/uL (0.11-0.59); Monocytes % (auto) 26.2 %; Neutrophils # (auto) 3.49 K/uL (1.4-6.5); Neutrophils % (auto) 44.7 %; Platelet Count 325 K/uL (130-400); RDW Coefficient of Variation 16.3 % (11.5-14.5); RDW Standard Deviation 54.8 fL (36.4-46.3); Red Blood Count 3.42 M/uL (4.2-5.4); White Blood Count 7.81 K/uL (4.8-10.8)
[2021-10-03 08:08] LABS: Albumin Globulin Ratio 0.6 (0.9-2); Albumin Level 2.3 gm/dl (3.4-5.0); BUN Creatinine Ratio 11.2 (10-20); Bilirubin,Total 0.4 mg/dl (0.2-1); Calcium 8.1 mg/dl (8.5-10.1); Creatinine Clr Calc Pharmacy 77.1 ml/min; Est GFR (African American) 97.3 ml/min; Globulin 4.1 gm/dl (2.5-4.0); Magnesium 2.1 mg/dl (1.8-2.4); Potassium 3.3 mmol/L (3.5-5.1); Total Protein 6.4 gm/dl (6.4-8.2)
[2021-10-03] MEDS: MIRABEGRON ER 25 MG TAB PO SCH (09:51)
[2021-10-03] MEDS: allopurinoL 300 MG TAB PO SCH (09:52)
[2021-10-03] MEDS: MULTIVITAMIN TAB PO SCH (09:52)
[2021-10-03] MEDS: FLUoxetine HCL 20 MG CAP PO SCH (09:52)
[2021-10-03] MEDS: ATORVASTATIN 40 MG TAB PO SCH (09:52)
[2021-10-03] MEDS: cefTRIAXone SODIUM 2,000 MG in DEXTROSE 5% 50 ML IV SCH (12:14)
[2021-10-03] MEDS: metroNIDAZOLE 500 MG TAB PO SCH ×2 (13:14→20:57)
[2021-10-03] MEDS ORDERED: guaiFENesin/CODEINE 100MG/10MG 5ML UDC PO PRN (14:34)
[2021-10-03] MEDS ORDERED: COUGH DROP (SUGAR FREE) LOZ 24 LOZ/1 BOX BUCCAL PRN (14:34)
--- NOTE | 2021-10-03 14:46 | Hospitalist Progress Note ---
Date of Service October 03, 2021 Assessment & Plan (1) Diverticulitis: Plan: Persistent Sigmoid Diverticulitis -CT-Ab/P: Acute diverticulitis of the sigmoid colon without evidence of perforation or abscess formation. - Pt previously with diverticulitis tx inpt dc on Augmentin failed, failed 2nd course of augmentin - Convert from Unasyn 3gIV to Ceftriaxone + Flagyl (consider cefdinir/flagyl as outpt conversion) - Follow clinically - Zofran 4mg Q6H PRN for nausea - Continue NSS+[id number] 80cc/hr - CBC, BMP trended - ?underlying colitis. Pt with hx of blood in BM, GI pain preceding diverticulitis tx with Mesalamine MI. Sigmoid diverticulitis, but infla mmation/thickening in ascending colon. Discussed w/ daughter would not scope at this time due to increased perf risk in the setting of acute diverticulitis, but that this should be followed up as outpt. May benefit from additional treatment after diverticulitis adequately treated. - (2) Upper respiratory infection: Plan: - COVID negative, Flu Negative - With congestion and cough - CTA negative - Suspect viral URI - Duonebs every 4 hours while awake and every 2 hours when necessary. - Azithromycin 500mg on admit, d/c with normal CTA/XR - Guifenasin/Codeine PRN for cough - Follow clinically - No O2 requirement (3) Lower GI bleed: Plan: See above (4) Hypokalemia due to excessive gastrointestinal loss of potassium: Plan: - Supplementation with IV fluids as noted above - 3.3 on 10/03 - Mg normal - KCl oral repletion ordered (5) Dyslipidemia: Plan: Continue atorvastatin 40 mg daily (6) Gastroesophageal reflux disease: Plan: Famotidine IV as noted above (7) Hypothyroidism: Plan: Continue levothyroxine 100 mcg daily (8) Urge incontinence of urine: Plan: Continue mirabegron (9) Depression: Plan: Continue fluoxetine (10) CAD (coronary artery disease): Plan: CAD/hypertension- No acute symptoms- Temporarily hold losartan (11) HTN (hypertension): Plan: See above (12) Obstructive sleep apnea: Plan: CPAP at bedtime as needed (13) Hypomagnesemia: Plan: Give mag sulfate 1 g IV, and repeat labs in a.m. Admission and Anticipated Discharge Date Admission Date: October 02, 2021 Subjective Pt seen at bedside. Reports she has had longstanding trouble with loose BMs, epigastric pain, and foul-smelling stool. She recently was diagnosed with diverticulitis and was treated empirically with IV antibiotics and discharged on Augmentin, readmitted and improved on Unasyn, and was discharged on Timentin, but continues to have persistent diverticulitis on current admission. Her daughter who was on phone at time of conversation is also very concerned that she could have underlying colitis. Discussed that this is possible in her prior symptoms may reflect colitis and she is noted to have thickening? Inflammation on her ascending colon: Although this was not noted in the rectum/distal colon where the diverticulitis was. Discussed that she should not have a colonoscopy at this time as she is at increased risk for , recommended treatment for her acute diverticulitis and follow-up as outpatient with colonoscopy in 6 to 8 weeks. Patient is agreeable to this. She also notes that she has had a cough and congestion for several days, cough productive for spit without colored mucus, and is aware that her Covid/flu was negative and CT of her chest was unremarkable admission. Most likely URI. Review of Systems Review of Systems: All systems reviewed & are unremarkable except as noted in Subjective Physical Exam Physical Exam: General: A&Ox3. NAD. Cooperative. HEENT: Atraumatic, normocephalic. Vision/hearing grossly intact Pulm: CTAB A&P. -wheezes, -rales, -rhonchi. Symmetrical chest rise. No increase work of breathing. No respiratory distress. Coughs frequently during exam, although lungs clear. Not productive cough. Cardiac: RRR, -mrg. Radial pulses intact and symmetrical. Abdominal: Mild infraumbilical 'pressure' to palp, otherwise NT, no rebound. soft. BS present. Results & Data Results & Data ([facility]) Vital Signs (Past 12 Hours) Vital Signs Temp Pulse Resp BP Pulse Ox 10/03/21 11:47 77 16 94 10/03/21 11:39 37.1 C 82 18 121/74 94 10/03/21 07:26 37 C 88 18 121/73 93 10/03/21 07:10 93 H 18 94 10/03/21 04:00 37.2 C 89 18 121/67 93 PG Care Time/CCT Total # of Minutes Spent Total Time Spent with Patient: Total time spent is greater than 50% in coordination of care (as documented) at patient's floor/unit and/or counseling patient: Coding Level of Care Code 89078 Subseq Hosp Care Lvl 3 Diagnoses Diverticulitis K57.92 Upper respiratory infection J06.9 Lower GI bleed K92.2 Dyslipidemia E78.5 Gastroesophageal reflux disease K21.9 Hypothyroidism E03.9 Urge incontinence of urine N39.41 Depression F32.9 Hypokalemia due to excessive gastrointestinal loss of potassium E87.6 CAD (coronary artery disease) I25.10 Associated angina: without angina Coronary Disease-Associated Artery/Lesion type: [place] artery [place] vs. transplanted heart: [place] heart HTN (hypertension) I10 Hypertension type: essential hypertension Obstructive sleep apnea G47.33 Hypomagnesemia E83.42 (1) CAD (coronary artery disease) Associated angina: without angina Coronary Disease-Associated Artery/Lesion type: [place] artery [place] vs. transplanted heart: [place] heart Qualified Code(s): I25.10 - Atherosclerotic heart disease of [place] coronary artery without angina pectoris (2) HTN (hypertension) Hypertension type: essential hypertension Qualified Code(s): I10 - Essential (primary) hypertension
[2021-10-03] MEDS: ADVANCED PROBIOTIC 1250 MG CAPSULE PO SCH (18:35)
[2021-10-03] MEDS: BENZONATATE 100 MG CAPSULE PO PRN (20:56)
[2021-10-03] MEDS: POTASSIUM CHLORIDE CRTAB 20 MEQ TABCR PO SCH (21:11)
[2021-10-04] MEDS: LEVOTHYROXINE SODIUM 100 MCG TABLET PO SCH (05:33)
--- NOTE | 2021-10-04 06:34 | Electrocardiogram Report ---
Test Reason : Blood Pressure : / mmHG Vent. Rate : 096 BPM Atrial Rate : 096 BPM P-R Int : 148 ms QRS Dur : 074 ms QT Int : 358 ms P-R-T Axes : 032 -01 044 degrees QTc Int : 452 ms Poor data quality, interpretation may be adversely affected Normal sinus rhythm Possible Inferior infarct (cited on or before 06-AUG-2018) Abnormal ECG When compared with ECG of 18-SEP-2021 16:44, No significant change was found Confirmed by Madhav Hassan ([id number]) on 10/04/2021 6:34:36 AM Referred By: REFERRED SELF Confirmed By:Madhav Hassan
[2021-10-04 07:51] LABS: Basophils # (auto) 0.04 K/uL (0-0.2); Basophils % (auto) 0.6 %; Eosinophils # (auto) 0.79 K/uL (0-0.5); Eosinophils % (auto) 11.5 %; Hematocrit (blood only) 30.1 % (37-47); Hemoglobin 9.9 g/dL (12.0-16.0); Immature Granulocytes # (auto) 0.03 K/uL (0.00-0.02); Immature Granulocytes % (auto) 0.4 %; Lymphocytes # (auto) 1.97 K/uL (1.2-3.4); Lymphocytes % (auto) 28.6 %; Mean Corpuscular Hemoglobin 30.4 pg (25-34); Mean Corpuscular Hgb Conc 32.9 g/dL (32-36); Mean Corpuscular Volume 92.3 fL (80-100); Mean Platelet Volume 8.1 fL (7.4-10.4); Monocytes # (auto) 1.67 K/uL (0.11-0.59); Monocytes % (auto) 24.3 %; Neutrophils # (auto) 2.38 K/uL (1.4-6.5); Neutrophils % (auto) 34.6 %; Platelet Count 307 K/uL (130-400); RDW Coefficient of Variation 16.4 % (11.5-14.5); RDW Standard Deviation 54.8 fL (36.4-46.3); Red Blood Count 3.26 M/uL (4.2-5.4); White Blood Count 6.88 K/uL (4.8-10.8)
[2021-10-04] MEDS: ALBUT/IPRATROP 3MG/0.5MG NEB 3 ML VIAL NEB SCH ×4 (07:53→19:33)
[2021-10-04 08:28] LABS: Albumin Level 2.2 gm/dl (3.4-5.0); Creatinine Clr Calc Pharmacy 88.6 ml/min; Est GFR (African American) 101.9 ml/min; Est GFR (Non-African American) 87.9 ml/min; Magnesium 2.1 mg/dl (1.8-2.4); Potassium 3.3 mmol/L (3.5-5.1)
[2021-10-04 08:31] LABS: Albumin Globulin Ratio 0.6 (0.9-2); Bilirubin,Total 0.2 mg/dl (0.2-1); Globulin 3.9 gm/dl (2.5-4.0); Total Protein 6.1 gm/dl (6.4-8.2)
[2021-10-04] MEDS: ATORVASTATIN 40 MG TAB PO SCH (08:42)
[2021-10-04] MEDS: MULTIVITAMIN TAB PO SCH (08:42)
[2021-10-04] MEDS: FLUoxetine HCL 20 MG CAP PO SCH (08:43)
[2021-10-04] MEDS: allopurinoL 300 MG TAB PO SCH (08:44)
[2021-10-04] MEDS: MIRABEGRON ER 25 MG TAB PO SCH (08:44)
[2021-10-04] MEDS: metroNIDAZOLE 500 MG TAB PO SCH ×3 (08:44→20:23)
[2021-10-04] MEDS: HEPARIN SOD 5,000 UNIT/0.5 ML VIAL SQ SCH ×2 (08:46→20:24)
[2021-10-04] MEDS: ADVANCED PROBIOTIC 1250 MG CAPSULE PO SCH (08:47)
[2021-10-04] MEDS: POTASSIUM CHLORIDE CRTAB 20 MEQ TABCR PO SCH ×3 (08:47→20:23)
[2021-10-04] MEDS: cefTRIAXone SODIUM 2,000 MG in DEXTROSE 5% 50 ML IV SCH (09:00)
[2021-10-04] MEDS: FAMOTIDINE 20 MG in SYRINGE 3 ML IV SCH ×2 (09:01→21:10)
--- NOTE | 2021-10-04 11:26 | Hospitalist Progress Note ---
Date of Service October 04, 2021 Assessment & Plan (1) Diverticulitis: Plan: Persistent Diverticulitis Vs Colitis -CT-Ab/P: Acute diverticulitis of the sigmoid colon without evidence of perforation or abscess formation. See GI discussion below - Pt previously with diverticulitis tx inpt dc on Augmentin failed, failed 2nd course of augmentin - Converted from Unasyn 3gIV to Ceftriaxone + Flagyl. Continue at this time, see below - Follow clinically - Zofran 4mg Q6H PRN for nausea - Continue NSS+[id number] 80cc/hr - CBC, BMP trended - ?underlying colitis. Pt with hx of blood in BM, GI pain preceding diverticulitis tx with Mesalamine NM. - GI Consulted. Discussed w/ GI. CT findings compatible with colitis progression, recommend limited endoscopic/sigmoid evaluation without prep. NPO at midnight. (2) Upper respiratory infection: Plan: - COVID negative, Flu Negative - With congestion and cough - CTA negative - Suspect viral URI - Duonebs every 4 hours while awake and every 2 hours when necessary. - Azithromycin 500mg on admit, d/c with normal CTA/XR - Guifenasin/Codeine PRN for cough - Follow clinically - No O2 requirement (3) Lower GI bleed: Plan: See above (4) Hypokalemia due to excessive gastrointestinal loss of potassium: Plan: - Supplementation with IV fluids as noted above -Mild hypokalemia today, - Mg repleted and normalized as noted below -Additional KCl oral repletion ordered (5) Dyslipidemia: Plan: Continue atorvastatin 40 mg daily (6) Gastroesophageal reflux disease: Plan: Famotidine IV as noted above (7) Hypothyroidism: Plan: Continue levothyroxine 100 mcg daily (8) Urge incontinence of urine: Plan: Continue mirabegron (9) Depression: Plan: Continue fluoxetine (10) CAD (coronary artery disease): Plan: CAD/hypertension- No acute symptoms- Temporarily hold losartan (11) HTN (hypertension): Plan: See above (12) Obstructive sleep apnea: Plan: CPAP at bedtime as needed (13) Hypomagnesemia: Plan: Mag repleted on admission, repeat mag normal Plan: DVT prophylaxis: Previously on heparin 5000 SQ. If some drop in hemoglobin switch to SCDs, evaluation for colitis with chronic anemia as noted above Diet: N.p.o. at midnight CODE STATUS: Full code Admission and Anticipated Discharge Date Admission Date: October 02, 2021 Subjective Seen at bedside. She feels similar to prior, no fever/chills overnight. Has had loose bowel movements with blood this morning. Continues to have a junky cough, no shortness of breath/chest pain/chest pressure. Discussed case with GI by phone, I have reviewed 3x CT ab/pelvis . Distal colon --> sigmoid progression inconsistent with diverticulitis and imaging compatible with colitis rather than underlying infection. Patient an outpatient had Anoscopy --> Rectum red/raw bleeding. Will continue antibiotics at this time, but make n.p.o. at midnight and plan on limited sigmoid evaluation with GI, GI consulted. Review of Systems Review of Systems: All systems reviewed & are unremarkable except as noted in Subjective Physical Exam Physical Exam: General: A&Ox3. NAD. Cooperative. HEENT: Atraumatic, normocephalic. Vision/hearing grossly intact Pulm: CTAB A&P. -wheezes, -rales, -rhonchi. Symmetrical chest rise. No increase work of breathing. No respiratory distress. Coughs frequently during exam, good air movement otherwise. Non productive cough. Cardiac: RRR, -mrg. Radial pulses intact and symmetrical. Abdominal: Continued mild infraumbilical pressure to palpation. Otherwise NT, no rebound. soft. BS present. Results & Data Results & Data ([facility]) Vital Signs (Past 12 Hours) Vital Signs Temp Pulse Resp BP BP Pulse Ox 10/04/21 10:56 36.6 C 83 19 170/81 H 97 10/04/21 07:18 37.4 C 79 18 142/81 H 93 PG Care Time/CCT Total # of Minutes Spent Total Time Spent with Patient: Total time spent is greater than 50% in coordination of care (as documented) at patient's floor/unit and/or counseling patient: Coding Level of Care Code 20325 Subseq Hosp Care Lvl 2 Diagnoses Diverticulitis K57.92 Upper respiratory infection J06.9 Lower GI bleed K92.2 Hypokalemia due to excessive gastrointestinal loss of potassium E87.6 Dyslipidemia E78.5 Gastroesophageal reflux disease K21.9 Hypothyroidism E03.9 Urge incontinence of urine N39.41 Depression F32.9 CAD (coronary artery disease) I25.10 Associated angina: without angina Coronary Disease-Associated Artery/Lesion type: [place] artery [place] vs. transplanted heart: [place] heart HTN (hypertension) I10 Hypertension type: essential hypertension Obstructive sleep apnea G47.33 Hypomagnesemia E83.42 (1) CAD (coronary artery disease) Associated angina: without angina Coronary Disease-Associated Artery/Lesion type: [place] artery [place] vs. transplanted heart: [place] heart Qualified Code(s): I25.10 - Atherosclerotic heart disease of [place] coronary artery without angina pectoris (2) HTN (hypertension) Hypertension type: essential hypertension Qualified Code(s): I10 - Essential (primary) hypertension
[2021-10-04] MEDS: BENZONATATE 100 MG CAPSULE PO PRN ×2 (13:30→21:10)
--- NOTE | 2021-10-04 14:26 | Gastrointestinal Consultation ---
Date of Consultation October 04, 2021 Assessment & Plan (1) Rectal bleed: (2) Acute blood loss anemia: (3) Diarrhea in adult patient: (4) Abdominal pain: (5) Diverticulosis of colon: (6) Cough: (7) Upper respiratory infection: Impression is that Ms. Zaldivar is having an episode of acute colitis, this is based on the symptoms and clinical course, CT scan findings, and anoscopy findings. It is possible that the illness is due to acute diverticulitis of the distal descending or sigmoid colon, but I feels this is less likely. Direct examination of the rectum will settle the issue and help with future management. I ordinarily do not recommend colon examination in the presence of acute diverticulitis, but this exam will be limited to the rectum only. In addition, there is extra risk because of the acute upper respiratory infection and history of obstructive sleep apnea, these problems will be managed by the anesthesiology service. The recommendation is to perform proctoscopy tomorrow to examine the rectum and determine if inflammation and bleeding are present. The recommended procedure was discussed with the patient and with her daughter, including the indications for examination and potential benefits, risks, alternatives, potential outcomes, and post procedure plans of care. All questions were addressed and answered, understanding was acknowledged, and consent was obtained Further recommendations to follow results of proctoscopy. History of Present Illness Reason for Consultation: Persistent rectal bleeding, diarrhea, and LLQ abdominal pain Attending Physician: Jaswant Beckett DO History of Present Illness Patient states she has had bright red rectal bleeding with bowel movements, frequent loose bowel movements, and associated LLQ abdominal pain since 09-14-2021. She denied any prior episodes of rectal bleeding, diarrhea, or pain. She has colonoscopy performed every 4 years, can't recall the last colonoscopy. She states she was told on one occasion that she had diverticulosis. She denies any history of inflammatory bowel disease or other colitis. She denies use of NSAIDs including aspirin. 3 CTAP with IV contrast but no oral contrast were performed on 09-14. 09-18, and 10-02, and all were reviewed with Dr. Jaswant Estes. The images show extensive diverticulosis of the colon, are compatible with acute diverticulitis of the sigmoid or distal descending colon, or acute colitis. She was treated for presumed diverticulitis. as an outpatient with Augmentin, with no change in symptoms. In the hospital she is being treated with IV ceftriaxone and oral metronidazole. She was evaluated an an outpatient in the office on 10-02-21, and had anoscopy performed. The nurse practitioner performing the exam noted severe rectal inflammation and bleeding consistent with proctitis, and nonbleeding hemorrhoids. Allergies Allergy/AdvReac Type Severity Reaction Status Date / Time erythromycin base Allergy Intermediate GASTRIC Verified 10/02/21 16:09 INFLAMATION rofecoxib Allergy Intermediate GASTRIC Verified 10/02/21 16:09 INFLAMATION Home Medications Medication Instructions Recorded Confirmed Type atorvastatin 40 mg tablet 40 mg PO DAILY #90 tab 11/18/20 10/02/21 Rx fluoxetine 20 mg capsule 20 mg PO DAILY #90 cap 11/18/20 10/02/21 Rx levothyroxine 100 mcg tablet 100 mcg PO DAILY #90 tab 11/18/20 10/02/21 Rx (Synthroid) trospium 20 mg tablet 20 mg PO BID 90 Days #180 tab 12/08/20 10/02/21 Rx mirabegron 50 mg tablet,extended 50 mg PO DAILY #90 tab 01/09/21 10/02/21 Rx release 24 hr (Myrbetriq) losartan 25 mg tablet 25 mg PO DAILY #90 tab 04/21/21 10/02/21 Rx allopurinol 300 mg tablet 300 mg PO DAILY #90 tab 04/24/21 10/02/21 Rx amoxicillin 875 mg-potassium 1 tab PO BID 09/30/21 10/02/21 History clavulanate 125 mg tablet (Augmentin) benzonatate 200 mg capsule 200 mg PO TID PRN #30 cap 09/30/21 10/02/21 Rx cholecalciferol (vitamin D3) 10 400 unit PO DAILY #90 tab 09/30/21 10/02/21 Rx mcg (400 unit) tablet (Vitamin D3) multivitamin 1 tab PO QAM #90 tab 09/30/21 10/02/21 Rx Patient History Medical History Arthritis Constipation Depression GERD (gastroesophageal reflux disease) HTN (hypertension) Hypothyroidism Metabolic encephalopathy Stroke Surgical History H/O: hysterectomy History of arthroplasty of left ankle History of arthroplasty of right ankle History of arthroscopic knee surgery History of colonoscopy History of surgery on wrist Status post breast reduction Family History Mother Diabetes Hypertension Cardiac disorder Brother Cancer Father Myocardial infarction Other Family history non-contributory Denies family history of Ovarian cancer Prostate cancer Breast cancer Lung cancer Social History Smoking Status: Never smoker Second Hand Exposure: No; Hx Alcohol Use: No Hx Substance Use: No Preferred Language: Vietnamese Communication Ability: Effective Visual Impairment: Partially Limited Hearing Ability: Use of Hearing Aid Elastic Yarn Twister Helper Required: No Beliefs That Will Affect Care: None marital status: Current Living Situation: Alone Current Living Situation Comment: [facility] since stroke, Jul, 2018 spouse in [facility] current occupational status: retired How many Children do You have: 2 Feels Safe at Home: Yes Childhood Exposure to Second-Hand Smoke: Yes caffeine: Yes Dental Care, Regularly: Yes Physical Activity Frequency: Does not Exercise Seatbelt Use: always Sunscreen Use: Yes Assistive Devices: Walker Review of Systems Review of Systems: All systems reviewed & are unremarkable except as noted in HPI & below Respiratory: Congested cough for around 1 week, which is gradually improving Physical Exam Constitutional: well developed, cooperative and + overweight No acute distress, Respiratory: + cough and able to speak in complete sentences Auscultation: + rhonchi Cardiovascular: Rate/Rhythm: regular rate and regular rhythm Heart Sounds: + murmur Gastrointestinal (Abdomen): Inspection/Auscultation: abdomen normal to inspection and normal bowel sounds Percussion/Palpation: abdomen soft and normal to percussion Neurologic: No focal neurologic signs Results & Data ([facility]) Vital Signs (Past 12 Hours) Vital Signs Temp Pulse Resp BP BP Pulse Ox 10/04/21 11:47 73 20 93 10/04/21 10:56 36.6 C 83 19 170/81 H 97 10/04/21 07:18 37.4 C 79 18 142/81 H 93 Laboratory Results Laboratory Results WBC 6.88 K/uL (4.8-10.8) 10/04/21 07:37 RBC 3.26 M/uL (4.2-5.4) L 10/04/21 07:37 Hgb 9.9 g/dL (12.0-16.0) L 10/04/21 07:37 Hct 30.1 % (37-47) L 10/04/21 07:37 MCV 92.3 fL (80-100) 10/04/21 07:37 MCH 30.4 pg (25-34) 10/04/21 07:37 MCHC 32.9 g/dL (32-36) 10/04/21 07:37 RDW Std Deviation 54.8 fL (36.4-46.3) H 10/04/21 07:37 RDW Coeff of Jovani 16.4 % (11.5-14.5) H 10/04/21 07:37 Plt Count 307 K/uL (130-400) 10/04/21 07:37 MPV 8.1 fL (7.4-10.4) 10/04/21 07:37 Immature Gran % (Auto) 0.4 % 10/04/21 07:37 Neut % (Auto) 34.6 % 10/04/21 07:37 Lymph % (Auto) 28.6 % 10/04/21 07:37 [place] % (Auto) 24.3 % 10/04/21 07:37 Eos % (Auto) 11.5 % 10/04/21 07:37 Baso % (Auto) 0.6 % 10/04/21 07:37 Neut # (Auto) 2.38 K/uL (1.4-6.5) 10/04/21 07:37 Lymph # (Auto) 1.97 K/uL (1.2-3.4) 10/04/21 07:37 [place] # (Auto) 1.67 K/uL (0.11-0.59) H 10/04/21 07:37 Eos # (Auto) 0.79 K/uL (0-0.5) H 10/04/21 07:37 Baso # (Auto) 0.04 K/uL (0-0.2) 10/04/21 07:37 Immature Gran # (Auto) 0.03 K/uL (0.00-0.02) H 10/04/21 07:37 PT 10.6 Seconds (9.0-12.0) 10/02/21 16:05 INR 1.0 (0.9-1.1) 10/02/21 16:05 APTT 26.2 Seconds (21.0-31.0) 10/02/21 16:05 PTT Ratio 1.0 10/02/21 16:05 Sodium 139 mmol/L (136-145) 10/04/21 07:37 Potassium 3.3 mmol/L (3.5-5.1) L 10/04/21 07:37 Chloride 108 mmol/L (98-107) H 10/04/21 07:37 Carbon Dioxide 24 mmol/L (21-32) 10/04/21 07:37 Anion Gap 8.0 (3-11) 10/04/21 07:37 BUN 4 mg/dl (7-18) L 10/04/21 07:37 Creatinine 0.60 mg/dl (0.6-1.2) 10/04/21 07:37 Est Cr Clr Drug Dosing 88.6 ml/min 10/04/21 07:37 Est GFR ( Amer) 101.9 ml/min 10/04/21 07:37 Est GFR (Non-Af Amer) 87.9 ml/min 10/04/21 07:37 BUN/Creatinine Ratio 7.0 (10-20) L 10/04/21 07:37 Glucose 95 mg/dl (70-99) 10/04/21 07:37 Lactate 1.5 mmol/L (0.4-2.0) 10/02/21 18:20 Calcium 8.0 mg/dl (8.5-10.1) L 10/04/21 07:37 Magnesium 2.1 mg/dl (1.8-2.4) 10/04/21 07:37 Total Bilirubin 0.2 mg/dl (0.2-1) 10/04/21 07:37 AST 11 U/L (15-37) L 10/04/21 07:37 ALT 13 U/L (12-78) 10/04/21 07:37 Alkaline Phosphatase 76 U/L (45-117) 10/04/21 07:37 Total Protein 6.1 gm/dl (6.4-8.2) L 10/04/21 07:37 Albumin 2.2 gm/dl (3.4-5.0) L 10/04/21 07:37 Globulin 3.9 gm/dl (2.5-4.0) 10/04/21 07:37 Albumin/Globulin Ratio 0.6 (0.9-2) L 10/04/21 07:37 Procalcitonin 0.07 ng/ml (0-0.5) 10/02/21 16:05 Stl C. diff Tox B Gene Negative Cdiff Gene (Neg) 10/02/21 Unknown COVID-19 Eval Order Covid19 at [facility] 10/02/21 15:35 SARS-CoV-2 (PCR) NEGATIVE (Negative) 10/02/21 15:35 Influ A Molecular Assay Negative (Negative) 10/02/21 15:35 Influ B Molecular Assay Negative (Negative) 10/02/21 15:35 Blood Type O Negative 10/02/21 16:17 Antibody Screen NEGATIVE 10/02/21 16:17 Impressions Chest X-Ray 10/02/21 17:18 XR chest 1V portable CLINICAL HISTORY: cough TECHNIQUE: Single frontal radiograph of the chest was obtained. Comparison: Comparison is made to chest one view 05/05/2019 FINDINGS: No lines and tubes are seen. The cardiomediastinal silhouette is normal. The lungs are clear. No evidence of pleural effusion or pneumothorax. IMPRESSION: No acute abnormality and in particular no evidence of pneumonia. ACT 112: Negative or not required by law. Electronically signed by: Jaswant Estes M.D. 10/02/2021 5:43 PM Abdomen/Pelvis CT 10/02/21 17:20 CT abd pelvis IV con only CLINICAL HISTORY: eval for diverticulits TECHNIQUE: Helical axial images of the abdomen and pelvis were obtained and displayed. Automated dose lowering techniques and/or adjustment according to patient size were utilized for this exam. This exam was performed with intravenous contrast. COMPARISON: None available at the time of this dictation. FINDINGS: Lower chest: Cardiomegaly is partially visualized. Liver: Hepatic cyst is seen. Gallbladder and biliary tree: No calcified gallstones. Normal caliber wall. No intra- or extrahepatic biliary ductal dilation. Pancreas: Unremarkable, no focal lesions. Spleen: Unremarkable. Adrenals: Unremarkable. Kidneys and ureters: Bilateral extrarenal pelvis is seen. Subcentimeter hypodensity at the inferior aspect of the right kidney is too small to characterize. Bladder: Unremarkable. Reproductive organs: Unremarkable. Bowel: Numerous diverticula are seen in the sigmoid colon. There is increased vascularity compatible with diverticulitis. No evidence of abscess or perforation. Mild wall thickening is also noted in the ascending colon as well. Lymph nodes Retroperitoneal: Unremarkable. Mesenteric: Unremarkable. Pelvic: Unremarkable. Peritoneum: Normal Vessels: Unremarkable. Abdominal wall: Right fat-containing inguinal hernia. Bones: Degenerative changes in the visualized spine. IMPRESSION: Acute diverticulitis of the sigmoid colon without evidence of perforation or abscess formation. ACT 112: Negative or not required by law. Electronically signed by: Jaswant Estes M.D. 10/02/2021 6:44 PM Chest CTA 10/02/21 18:28 CT angio chest PE protocol CLINICAL HISTORY: PE TECHNIQUE: Multidetector row helical CT of the chest was performed. Coronal and sagittal reformations were obtained. Automated dose lowering techniques and/or adjustment according to patient size were utilized for this exam. Comparison: Comparison is made to CT chest 09/14/2021 FINDINGS: Lungs and pleura: Normal. Heart and pericardium: There is cardiomegaly without evidence of pericardial effusion. Vessels: No evidence of pulmonary embolism. Mediastinum and ambika: Unremarkable. Chest wall and lower neck: Unremarkable. Abdomen: A hiatal hernia is seen. Bones: Degenerative changes in the thoracic spine. IMPRESSION: No evidence of pulmonary embolism. ACT 112: Negative or not required by law. Electronically signed by: Jaswant Estes M.D. 10/02/2021 6:51 PM (1) Abdominal pain Abdominal location: left lower quadrant Qualified Code(s): R10.32 - Left lower quadrant pain
[2021-10-05] MEDS: LEVOTHYROXINE SODIUM 100 MCG TABLET PO SCH (06:10)
[2021-10-05 06:29] LABS: Basophils # (auto) 0.05 K/uL (0-0.2); Basophils % (auto) 0.6 %; Eosinophils # (auto) 0.79 K/uL (0-0.5); Eosinophils % (auto) 9.8 %; Hematocrit (blood only) 31.3 % (37-47); Hemoglobin 10.6 g/dL (12.0-16.0); Immature Granulocytes # (auto) 0.04 K/uL (0.00-0.02); Immature Granulocytes % (auto) 0.5 %; Lymphocytes % (auto) 27.4 %; Mean Corpuscular Hemoglobin 31.1 pg (25-34); Mean Corpuscular Hgb Conc 33.9 g/dL (32-36); Mean Corpuscular Volume 91.8 fL (80-100); Mean Platelet Volume 8.4 fL (7.4-10.4); Monocytes # (auto) 1.55 K/uL (0.11-0.59); Monocytes % (auto) 19.3 %; Neutrophils % (auto) 42.4 %; Platelet Count 377 K/uL (130-400); RDW Coefficient of Variation 16.2 % (11.5-14.5); RDW Standard Deviation 54.1 fL (36.4-46.3); Red Blood Count 3.41 M/uL (4.2-5.4); White Blood Count 8.03 K/uL (4.8-10.8)
[2021-10-05 07:03] LABS: Albumin Level 2.3 gm/dl (3.4-5.0); BUN Creatinine Ratio 5.9 (10-20); Calcium 8.6 mg/dl (8.5-10.1); Creatinine Clr Calc Pharmacy 98.5 ml/min; Est GFR (African American) 105.5 ml/min; Potassium 3.6 mmol/L (3.5-5.1)
[2021-10-05 07:05] LABS: Albumin Globulin Ratio 0.6 (0.9-2); Bilirubin,Total 0.2 mg/dl (0.2-1); Globulin 3.9 gm/dl (2.5-4.0); Total Protein 6.2 gm/dl (6.4-8.2)
[2021-10-05] MEDS: FAMOTIDINE 20 MG in SYRINGE 3 ML IV SCH ×2 (08:03→20:21)
[2021-10-05] MEDS: cefTRIAXone SODIUM 2,000 MG in DEXTROSE 5% 50 ML IV SCH (08:03)
[2021-10-05] MEDS: ATORVASTATIN 40 MG TAB PO SCH (08:03)
[2021-10-05] MEDS: POTASSIUM CHLORIDE CRTAB 20 MEQ TABCR PO SCH ×2 (08:04→13:52)
[2021-10-05] MEDS: MIRABEGRON ER 25 MG TAB PO SCH (08:04)
[2021-10-05] MEDS: MULTIVITAMIN TAB PO SCH (08:04)
[2021-10-05] MEDS: ADVANCED PROBIOTIC 1250 MG CAPSULE PO SCH (08:04)
[2021-10-05] MEDS: metroNIDAZOLE 500 MG TAB PO SCH ×3 (08:04→20:22)
[2021-10-05] MEDS: FLUoxetine HCL 20 MG CAP PO SCH (08:04)
[2021-10-05] MEDS: HEPARIN SOD 5,000 UNIT/0.5 ML VIAL SQ SCH ×2 (08:04→20:21)
[2021-10-05] MEDS: allopurinoL 300 MG TAB PO SCH (08:04)
[2021-10-05] MEDS: ALBUT/IPRATROP 3MG/0.5MG NEB 3 ML VIAL NEB SCH ×4 (08:25→20:54)
--- NOTE | 2021-10-05 08:45 | Gastroenterology Progress Note ---
Date of Service October 05, 2021 Assessment & Plan (1) Rectal bleed: Plan: Rectal bleeding: The patient has been in experiencing rectal bleeding thought related to acute diverticulitis with associated changes on CT abdomen and pelvis. Anoscopy exam in the clinic Tuesday demonstrated inflammation without evidence of ulceration. Plan today is for proctoscopy for sigmoid evaluation to determine if inflammation and bleeding are present. Patient in agreement with p josue of care today. Please refer to supervising physician addendum for further recommendations. Admission and Anticipated Discharge Date Admission Date: October 02, 2021 Supervising Physician Co-Signing Physician Notes I interviewed and examined the patient and reviewed the medical record, with the following observations: Subjective: Patient denies any change in symptoms today Physical Examination: No additional findings Chart Review: Stool pathogens study negative for shigella, salmonella, campylobacter This case was reviewed with the advanced practice provider I agree with the assessment as outlined in this consultation, with the following observations: No additional observations pre endoscopy I agree with the plan of care as outlined in this consultation, with the following changes and/or additions: Examination to be limited to the rectum only, to evaluate for possible infectious/inflammatory bowel disease Subjective The patient is lying in bed this morning and position of comfort. She wakens easily with verbal stimuli. Denies any specific complaints. Denies any abdominal pain, nausea, vomiting. She states she feels like she is wheezing this morning. No cough noted while in the room. She reports she is still having liquid brown stool with dark red and bright red blood. Anoscopy was performed by myself in the office on Tuesday. Inflammation without ulceration was noted on examination. Liquid dark brown stool with dark and bright red bleeding was noted on examination. Plan was to treat for a presumed proctitis and obtain proctoscopy to further evaluate inflammation. Patient was ultimately admitted due to her respiratory status. Review of Systems Review of Systems: All systems reviewed & are unremarkable except as noted in Subjective Physical Exam Respiratory: Auscultation: + wheezes Gastrointestinal (Abdomen): Inspection/Auscultation: abdomen normal to inspection and normal bowel sounds; abdomen not distended Percussion/Palpation: abdomen soft; abdomen nontender, no guarding and abdomen not rigid Results & Data ([facility]) Vital Signs (Past 12 Hours) Vital Signs Temp Pulse Resp BP Pulse Ox 10/05/21 07:17 36.8 C 79 14 156/82 H 94 10/04/21 22:59 37.1 C 80 16 147/79 H 92 Laboratory Results Laboratory Results - last 24 hr 10/05/21 10/05/21 06:13 06:13 WBC 8.03 RBC 3.41 L Hgb 10.6 L Hct 31.3 L MCV 91.8 MCH 31.1 MCHC 33.9 RDW Std Deviation 54.1 H RDW Coeff of Jovani 16.2 H Plt Count 377 MPV 8.4 Immature Gran % (Auto) 0.5 Neut % (Auto) 42.4 Lymph % (Auto) 27.4 [place] % (Auto) 19.3 Eos % (Auto) 9.8 Baso % (Auto) 0.6 Neut # (Auto) 3.40 Lymph # (Auto) 2.20 [place] # (Auto) 1.55 H Eos # (Auto) 0.79 H Baso # (Auto) 0.05 Immature Gran # (Auto) 0.04 H Sodium 136 Potassium 3.6 Chloride 106 Carbon Dioxide 25 Anion Gap 5.0 BUN 3 L Creatinine 0.54 L Est Cr Clr Drug Dosing 98.5 Est GFR ( Amer) 105.5 Est GFR (Non-Af Amer) 91.0 BUN/Creatinine Ratio 5.9 L Glucose 95 Calcium 8.6 Magnesium 2.0 Total Bilirubin 0.2 AST 13 L ALT 16 Alkaline Phosphatase 77 Total Protein 6.2 L Albumin 2.3 L Globulin 3.9 Albumin/Globulin Ratio 0.6 L
[2021-10-05] MEDS: LOSARTAN POTASSIUM 25 MG TAB PO SCH (10:21)
--- NOTE | 2021-10-05 15:50 | Anesthesiology Consultation ---
Date of Service October 05, 2021 Assessment & Plan Chart Review Chart Review: Acceptable Risk for Surgery Consults Requested none Teaching & Discussion discussed risks with current URI, consent signed ASA ASA3 Proposed Anesthesia Anesthesia Type: MAC Risk / Benefits Reviewed With: PT / POA / Parent / Guardian, Accepts Plan and Informed Consent Obtained History Surgery Operation Date: 10/05/21 17:30 Proposed Procedures p Flexible Sigmoidoscopy Dr. Jm Oneal MD Height/Weight Height: 5 ft 6 in Weight: 89.8 kg Allergies Allergy/AdvReac Type Severity Reaction Status Date / Time erythromycin base Allergy Intermediate GASTRIC Verified 10/05/21 16:09 INFLAMATION rofecoxib Allergy Intermediate GASTRIC Verified 10/05/21 16:09 INFLAMATION Medications Home Medications Medication Instructions Recorded Confirmed Last Taken atorvastatin 40 mg tablet 40 mg PO DAILY #90 tab 11/18/20 10/02/21 10/01/21 fluoxetine 20 mg capsule 20 mg PO DAILY #90 cap 11/18/20 10/02/21 10/01/21 levothyroxine 100 mcg tablet 100 mcg PO DAILY #90 tab 11/18/20 10/02/21 10/01/21 (Synthroid) trospium 20 mg tablet 20 mg PO BID 90 Days #180 tab 12/08/20 10/02/21 10/01/21 mirabegron 50 mg tablet,extended 50 mg PO DAILY #90 tab 01/09/21 10/02/21 10/01/21 release 24 hr (Myrbetriq) losartan 25 mg tablet 25 mg PO DAILY #90 tab 04/21/21 10/02/21 10/01/21 allopurinol 300 mg tablet 300 mg PO DAILY #90 tab 04/24/21 10/02/21 10/01/21 amoxicillin 875 mg-potassium 1 tab PO BID 09/30/21 10/02/21 10/02/21 clavulanate 125 mg tablet (Augmentin) benzonatate 200 mg capsule 200 mg PO TID PRN #30 cap 09/30/21 10/02/21 10/02/21 cholecalciferol (vitamin D3) 10 400 unit PO DAILY #90 tab 09/30/21 10/02/21 10/01/21 mcg (400 unit) tablet (Vitamin D3) multivitamin 1 tab PO QAM #90 tab 1110/02/21 10/01/21 Active Medications Generic Name Dose Route Start Last Admin Trade Name Freq PRN Reason Stop Dose Admin Albuterol 3 ml 10/03/21 07:00 10/05/21 15:06 Albut/Ipratrop 3mg/0.5mg Neb 3 Ml Vial NEB 11/02/21 06:59 Not Given QIDR SEFERINO Allopurinol 300 mg 10/03/21 09:00 10/05/21 08:04 Allopurinol 300 Mg Tab PO 11/02/21 08:59 300 mg DAILY SEFERINO Administration Atorvastatin Calcium 40 mg 10/03/21 09:00 10/05/21 08:03 Atorvastatin 40 Mg Tab PO 11/02/21 08:59 40 mg DAILY SEFERINO Administration Benzonatate 200 mg 10/03/21 02:12 10/04/21 21:10 Benzonatate 100 Mg Capsule PO 11/02/21 02:11 200 mg TID PRN Administration cough Fluoxetine HCl 20 mg 10/03/21 09:00 10/05/21 08:04 Fluoxetine Hcl 20 Mg Cap PO 11/02/21 08:59 20 mg DAILY SEFERINO Administration Heparin Sodium (Porcine) 5,000 units 10/03/21 02:12 10/05/21 08:04 Heparin Sod 5,000 Unit/0.5 Ml Vial SQ 11/02/21 02:11 5,000 units Q12 SEFERINO Administration Famotidine 20 mg/ Syringe 5 mls @ 2.5 mls/min 10/02/21 23:15 10/05/21 08:03 IV 11/01/21 23:14 2.5 mls/min Q12 SEFERINO Administration Ceftriaxone Sodium 2,000 mg/ 70 mls @ 100 mls/hr 10/03/21 11:00 10/05/21 09:03 Dextrose IV 10/13/21 10:59 Infused DAILY SEFERINO Infusion Protocol Lactobacillus Acidoph/Casei/Rhamnos 2 cap 10/03/21 18:00 10/05/21 08:04 Advanced Probiotic 1250 Mg Capsule PO 11/02/21 17:59 2 cap DAILY SEFERINO Administration Levothyroxine Sodium 100 mcg 10/03/21 06:30 10/05/21 06:10 Levothyroxine Sodium 100 Mcg Tablet PO 11/02/21 06:29 100 mcg DAILYBB SEFERINO Administration Losartan Potassium 25 mg 10/05/21 09:15 10/05/21 10:21 Losartan Potassium 25 Mg Tab PO 11/04/21 09:14 25 mg DAILY SEFERINO Administration Menthol 1 wei 10/03/21 14:34 10/03/21 16:00 Cough Drop (Sugar Free) Wei 24 Wei/1 Box BUCCAL 11/02/21 14:33 1 wei Q6H PRN Administration Sore Throat Metronidazole 500 mg 10/03/21 14:00 10/05/21 13:52 Metronidazole 500 Mg Tab PO 10/13/21 13:59 500 mg TID SEFERINO Administration Protocol Mirabegron 50 mg 10/03/21 09:00 10/05/21 08:04 Mirabegron Er 25 Mg Tab PO 11/02/21 08:59 50 mg DAILY SEFERINO Administration Miscellaneous 1 ea 10/03/21 08:00 10/05/21 15:39 Trospium 20 Mg - Order Awaiting Action N/A 11/02/21 07:59 Not Given QS SEFERINO Multivitamins 1 tab 10/03/21 09:00 10/05/21 08:04 Multivitamin Tab PO 11/02/21 08:59 1 tab QAM SEFERINO Administration NPO Date Last Intake of Fluids: 10/05/21 Time Last Intake of Fluids: 00:00 Date Last Intake of Solids: 10/05/21 Time Last Intake of Solids: 12:00 Last Intake of Solids Comment: sips for meds Past Medical History Medical History (Updated 10/05/21 @ 15:49 by Odette Wilkes DO) Aphasia, mixed Arthritis CAD (coronary artery disease) Constipation Depression Diverticulitis Dyslipidemia Dysphagia GERD (gastroesophageal reflux disease) HTN (hypertension) Hypothyroidism Left acute arterial ischemic stroke, MCA (middle cerebral artery) Acute, multifocal, left MCA territory stroke resulting in an expressive greater than receptive aphasia and mild right hemiparesis. Stroke etiology undetermined. No evidence of carotid occlusive disease. Cardioembolism not excluded. Low back pain Metabolic encephalopathy Multiple pulmonary nodules Obstructive sleep apnea Optic neuritis Rectal bleed Stroke Upper respiratory infection Vitamin D deficiency urinary bladder incontinence, gait abnormality, Exercise / Class Metabolic Activity III < 4 Walking/Shop/Light housework Past Family History Family History Mother Diabetes Hypertension Cardiac disorder Brother Cancer Father Myocardial infarction Other Family history non-contributory Denies family history of Ovarian cancer Prostate cancer Breast cancer Lung cancer Past Surgical History Surgical History H/O: hysterectomy History of arthroplasty of left ankle History of arthroplasty of right ankle History of arthroscopic knee surgery History of colonoscopy History of surgery on wrist Status post breast reduction Past Anesthesia History No Hx of Anesthesia Complications and No Family Hx of Anesthesia Complications History of PONV No Hx of PONV and No Hx of Motion Sickness Social History Smoking Status: Never smoker Do You Dip or Chew Tobacco: No Hx Alcohol Use: No alcohol intake frequency: holidays/special occasions only Hx Substance Use: No substance use type: does not use Physical Exam Vital Signs Last Vital Signs Temp 36.9 C 10/05/21 16:10 Pulse 87 10/05/21 16:10 Resp 16 10/05/21 16:10 BP 159/83 H 10/05/21 16:10 Pulse Ox 94 10/05/21 16:10 ENMT Mouth: no TMJ abnormality Thyromental Distance: > or= 3.5 Finger Breadths Mallampati Class: II Neck normal visual inspection and trachea midline; neck extension not limited Respiratory normal respiratory effort Auscultation: lungs clear to auscultation bilaterally Cardiovascular Rate/Rhythm: regular rate and regular rhythm Heart Sounds: no murmur Musculoskeletal Spine: normal cervical ROM Extremities: full ROM of extremities Neurologic moves all extremities Psychiatric Orientation: alert and oriented x 3 Testing Laboratory Results 10/05/21 06:13 10/05/21 06:13 PT 10.6 Seconds (9.0-12.0) 10/02/21 16:05 INR 1.0 (0.9-1.1) 10/02/21 16:05 APTT 26.2 Seconds (21.0-31.0) 10/02/21 16:05 Blood Type O Negative 10/02/21 16:17 Antibody Screen NEGATIVE 10/02/21 16:17 10/02/21 16:05 Aerobic Blood Culture - Preliminary Blood No growth in Aerobic bottle after 48 hours. Anaerobic Blood Culture - Preliminary No growth in Anaerobic bottle after 48 hours. 10/02/21 16:00 Aerobic Blood Culture - Preliminary Blood No growth in Aerobic bottle after 48 hours. Anaerobic Blood Culture - Preliminary No growth in Anaerobic bottle after 48 hours. covid neg 10/02/21 Electrocardiogram Date: 10/02/21 Findings: + NSR @ (96) Normal sinus rhythm Possible Inferior infarct (cited on or before 06-AUG-2018) Abnormal ECG Chest X-Ray Date: 10/02/21 XR chest 1V portable CLINICAL HISTORY: cough TECHNIQUE: Single frontal radiograph of the chest was obtained. Comparison: Comparison is made to chest one view 05/05/2019 FINDINGS: No lines and tubes are seen. The cardiomediastinal silhouette is normal. The lungs are clear. No evidence of pleural effusion or pneumothorax. IMPRESSION: No acute abnormality and in particular no evidence of pneumonia. Echocardiogram Date: 08/07/18 EF: 55-60 LV Function: normal RWMA: + none Other Findings: + LVH (borderline) Valvular Disease: + no significant valvular disease
--- NOTE | 2021-10-05 15:51 | History & Physical Report ---
Date of Service October 05, 2021 Assessment & Plan (1) Rectal bleed: (2) Diarrhea in adult patient: (3) Abdominal pain: Abdominal location: left lower quadrant Qualified Code(s): R10.32 - Left lower quadrant pain Plan: Proceed with proctoscopy examination. The recommended procedure was discussed with the patient, including the indications for examination and potential bene fits, risks, alternatives, potential outcomes, and post procedure plans of care. All questions were addressed and answered, understanding was acknowledged, and consent was obtained Admission and Anticipated Discharge Date Admission Date: October 02, 2021 History of Present Illness Chief Complaint: Rectal bleeding, diarrhea, and abdominal pain Primary Care Provider: Meño Johnson MD For several weeks, rectal bleeding, diarrhea and lower abdominal pain with imaging findings compatible with diverticulitis or possibly acute colitis. Anoscopy revealed bleeding and possible proctitis. Allergies Allergy/AdvReac Type Severity Reaction Status Date / Time erythromycin base Allergy Intermediate GASTRIC Verified 10/02/21 16:09 INFLAMATION rofecoxib Allergy Intermediate GASTRIC Verified 10/02/21 16:09 INFLAMATION Home Medications Medication Instructions Recorded Confirmed Type atorvastatin 40 mg tablet 40 mg PO DAILY #90 tab 11/18/20 10/02/21 Rx fluoxetine 20 mg capsule 20 mg PO DAILY #90 cap 11/18/20 10/02/21 Rx levothyroxine 100 mcg tablet 100 mcg PO DAILY #90 tab 11/18/20 10/02/21 Rx (Synthroid) trospium 20 mg tablet 20 mg PO BID 90 Days #180 tab 12/08/20 10/02/21 Rx mirabegron 50 mg tablet,extended 50 mg PO DAILY #90 tab 01/09/21 10/02/21 Rx release 24 hr (Myrbetriq) losartan 25 mg tablet 25 mg PO DAILY #90 tab 04/21/21 10/02/21 Rx allopurinol 300 mg tablet 300 mg PO DAILY #90 tab 04/24/21 10/02/21 Rx amoxicillin 875 mg-potassium 1 tab PO BID 09/30/21 10/02/21 History clavulanate 125 mg tablet (Augmentin) benzonatate 200 mg capsule 200 mg PO TID PRN #30 cap 09/30/21 10/02/21 Rx cholecalciferol (vitamin D3) 10 400 unit PO DAILY #90 tab 09/30/21 10/02/21 Rx mcg (400 unit) tablet (Vitamin D3) multivitamin 1 tab PO QAM #90 tab 09/30/21 10/02/21 Rx Past Med/Surg History Medical History Arthritis Constipation Depression GERD (gastroesophageal reflux disease) HTN (hypertension) Hypothyroidism Metabolic encephalopathy Stroke Surgical History H/O: hysterectomy History of arthroplasty of left ankle History of arthroplasty of right ankle History of arthroscopic knee surgery History of colonoscopy History of surgery on wrist Status post breast reduction Family History Mother Diabetes Hypertension Cardiac disorder Brother Cancer Father Myocardial infarction Other Family history non-contributory Denies family history of Ovarian cancer Prostate cancer Breast cancer Lung cancer Social History Smoking Status: Never smoker Second Hand Exposure: No; Hx Alcohol Use: No Hx Substance Use: No Preferred Language: Turkmen Communication Ability: Effective Visual Impairment: Partially Limited Hearing Ability: Use of Hearing Aid Bedspread Folder Required: No Beliefs That Will Affect Care: None marital status: Current Living Situation: Alone Current Living Situation Comment: [facility] since stroke, Jul, 2018 spouse in [facility] current occupational status: retired How many Children do You have: 2 Feels Safe at Home: Yes Childhood Exposure to Second-Hand Smoke: Yes caffeine: Yes Dental Care, Regularly: Yes Physical Activity Frequency: Does not Exercise Seatbelt Use: always Sunscreen Use: Yes Assistive Devices: Walker Review of Systems All systems reviewed & are unremarkable except as noted in HPI & below + cough and + chest congestion Additional Comments: No chest pain, no dyspnea at rest see HPI Physical Exam Constitutional: well developed, cooperative and + overweight Respiratory: + cough and able to speak in complete sentences Auscultation: + rhonchi Cardiovascular: Rate/Rhythm: regular rate and regular rhythm Heart Sounds: + murmur Gastrointestinal (Abdomen): Inspection/Auscultation: abdomen normal to inspection and normal bowel sounds Percussion/Palpation: abdomen soft and normal to percussion ASA Classification ASA ASA3 Results & Data ([facility]) Vital Signs (Past 12 Hours) Vital Signs Temp Pulse Resp BP BP Pulse Ox 10/05/21 14:18 36.2 C L 84 16 138/85 93 10/05/21 07:17 36.8 C 79 14 156/82 H 94 Laboratory Results Laboratory Results WBC 8.03 K/uL (4.8-10.8) 10/05/21 06:13 RBC 3.41 M/uL (4.2-5.4) L 10/05/21 06:13 Hgb 10.6 g/dL (12.0-16.0) L 10/05/21 06:13 Hct 31.3 % (37-47) L 10/05/21 06:13 MCV 91.8 fL (80-100) 10/05/21 06:13 MCH 31.1 pg (25-34) 10/05/21 06:13 MCHC 33.9 g/dL (32-36) 10/05/21 06:13 RDW Std Deviation 54.1 fL (36.4-46.3) H 10/05/21 06:13 RDW Coeff of Jovani 16.2 % (11.5-14.5) H 10/05/21 06:13 Plt Count 377 K/uL (130-400) 10/05/21 06:13 MPV 8.4 fL (7.4-10.4) 10/05/21 06:13 Immature Gran % (Auto) 0.5 % 10/05/21 06:13 Neut % (Auto) 42.4 % 10/05/21 06:13 Lymph % (Auto) 27.4 % 10/05/21 06:13 Graves % (Auto) 19.3 % 10/05/21 06:13 Eos % (Auto) 9.8 % 10/05/21 06:13 Baso % (Auto) 0.6 % 10/05/21 06:13 Neut # (Auto) 3.40 K/uL (1.4-6.5) 10/05/21 06:13 Lymph # (Auto) 2.20 K/uL (1.2-3.4) 10/05/21 06:13 Graves # (Auto) 1.55 K/uL (0.11-0.59) H 10/05/21 06:13 Eos # (Auto) 0.79 K/uL (0-0.5) H 10/05/21 06:13 Baso # (Auto) 0.05 K/uL (0-0.2) 10/05/21 06:13 Immature Gran # (Auto) 0.04 K/uL (0.00-0.02) H 10/05/21 06:13 PT 10.6 Seconds (9.0-12.0) 10/02/21 16:05 INR 1.0 (0.9-1.1) 10/02/21 16:05 APTT 26.2 Seconds (21.0-31.0) 10/02/21 16:05 PTT Ratio 1.0 10/02/21 16:05 Sodium 136 mmol/L (136-145) 10/05/21 06:13 Potassium 3.6 mmol/L (3.5-5.1) 10/05/21 06:13 Chloride 106 mmol/L (98-107) 10/05/21 06:13 Carbon Dioxide 25 mmol/L (21-32) 10/05/21 06:13 Anion Gap 5.0 (3-11) 10/05/21 06:13 BUN 3 mg/dl (7-18) L 10/05/21 06:13 Creatinine 0.54 mg/dl (0.6-1.2) L 10/05/21 06:13 Est Cr Clr Drug Dosing 98.5 ml/min 10/05/21 06:13 Est GFR ( Amer) 105.5 ml/min 10/05/21 06:13 Est GFR (Non-Af Amer) 91.0 ml/min 10/05/21 06:13 BUN/Creatinine Ratio 5.9 (10-20) L 10/05/21 06:13 Glucose 95 mg/dl (70-99) 10/05/21 06:13 Lactate 1.5 mmol/L (0.4-2.0) 10/02/21 18:20 Calcium 8.6 mg/dl (8.5-10.1) 10/05/21 06:13 Magnesium 2.0 mg/dl (1.8-2.4) 10/05/21 06:13 Total Bilirubin 0.2 mg/dl (0.2-1) 10/05/21 06:13 AST 13 U/L (15-37) L 10/05/21 06:13 ALT 16 U/L (12-78) 10/05/21 06:13 Alkaline Phosphatase 77 U/L (45-117) 10/05/21 06:13 Total Protein 6.2 gm/dl (6.4-8.2) L 10/05/21 06:13 Albumin 2.3 gm/dl (3.4-5.0) L 10/05/21 06:13 Globulin 3.9 gm/dl (2.5-4.0) 10/05/21 06:13 Albumin/Globulin Ratio 0.6 (0.9-2) L 10/05/21 06:13 Procalcitonin 0.07 ng/ml (0-0.5) 10/02/21 16:05 Stl C. diff Tox B Gene Negative Cdiff Gene (Neg) 10/02/21 Unknown COVID-19 Eval Order Covid19 at [facility] 10/02/21 15:35 SARS-CoV-2 (PCR) NEGATIVE (Negative) 10/02/21 15:35 Influ A Molecular Assay Negative (Negative) 10/02/21 15:35 Influ B Molecular Assay Negative (Negative) 10/02/21 15:35 Blood Type O Negative 10/02/21 16:17 Antibody Screen NEGATIVE 10/02/21 16:17 Impressions Chest X-Ray 10/02/21 17:18 XR chest 1V portable CLINICAL HISTORY: cough TECHNIQUE: Single frontal radiograph of the chest was obtained. Comparison: Comparison is made to chest one view 05/05/2019 FINDINGS: No lines and tubes are seen. The cardiomediastinal silhouette is normal. The lungs are clear. No evidence of pleural effusion or pneumothorax. IMPRESSION: No acute abnormality and in particular no evidence of pneumonia. ACT 112: Negative or not required by law. Electronically signed by: Jaswant Estes M.D. 10/02/2021 5:43 PM Abdomen/Pelvis CT 10/02/21 17:20 CT abd pelvis IV con only CLINICAL HISTORY: eval for diverticulits TECHNIQUE: Helical axial images of the abdomen and pelvis were obtained and displayed. Automated dose lowering techniques and/or adjustment according to patient size were utilized for this exam. This exam was performed with intravenous contrast. COMPARISON: None available at the time of this dictation. FINDINGS: Lower chest: Cardiomegaly is partially visualized. Liver: Hepatic cyst is seen. Gallbladder and biliary tree: No calcified gallstones. Normal caliber wall. No intra- or extrahepatic biliary ductal dilation. Pancreas: Unremarkable, no focal lesions. Spleen: Unremarkable. Adrenals: Unremarkable. Kidneys and ureters: Bilateral extrarenal pelvis is seen. Subcentimeter hypodensity at the inferior aspect of the right kidney is too small to characterize. Bladder: Unremarkable. Reproductive organs: Unremarkable. Bowel: Numerous diverticula are seen in the sigmoid colon. There is increased vascularity compatible with diverticulitis. No evidence of abscess or perforation. Mild wall thickening is also noted in the ascending colon as well. Lymph nodes Retroperitoneal: Unremarkable. Mesenteric: Unremarkable. Pelvic: Unremarkable. Peritoneum: Normal Vessels: Unremarkable. Abdominal wall: Right fat-containing inguinal hernia. Bones: Degenerative changes in the visualized spine. IMPRESSION: Acute diverticulitis of the sigmoid colon without evidence of perforation or abscess formation. ACT 112: Negative or not required by law. Electronically signed by: Jaswant Estes M.D. 10/02/2021 6:44 PM Chest CTA 10/02/21 18:28 CT angio chest PE protocol CLINICAL HISTORY: PE TECHNIQUE: Multidetector row helical CT of the chest was performed. Coronal and sagittal reformations were obtained. Automated dose lowering techniques and/or adjustment according to patient size were utilized for this exam. Comparison: Comparison is made to CT chest 09/14/2021 FINDINGS: Lungs and pleura: Normal. Heart and pericardium: There is cardiomegaly without evidence of pericardial effusion. Vessels: No evidence of pulmonary embolism. Mediastinum and ambika: Unremarkable. Chest wall and lower neck: Unremarkable. Abdomen: A hiatal hernia is seen. Bones: Degenerative changes in the thoracic spine. IMPRESSION: No evidence of pulmonary embolism. ACT 112: Negative or not required by law. Electronically signed by: Jaswant Estes M.D. 10/02/2021 6:51 PM Code Status & VTE Plan VTE Prophylaxis Plan VTE Prophylaxis will be ordered: Yes
[2021-10-05] MEDS ORDERED: PROPOFOL IV EMULSION 10 MG/ML 20 ML VIAL IV ONE (16:19)
[2021-10-05] MEDS ORDERED: LIDOCAINE 2% 2 ML VIAL/AMP(20MG/ML) INFIL ONE (16:19)
--- NOTE | 2021-10-05 16:50 | GI REPORT ---
Patient Name: Noah Zaldivar Procedure Date: 10/05/2021 4:15 PM Date of : 1945 Admit Type: Inpatient Age: 76 Gender: Female Attending MD: Paco Oneal MD Procedure: Flexible Sigmoidoscopy Providers: Paco Oneal MD Referring MD: Jaswant Beckett Indications: Lower abdominal pain, Rectal hemorrhage, Diarrhea Medicines: Monitored Anesthesia Care Complications: No immediate complications. Estimated Blood Loss: Estimated blood loss: none. Procedure: Pre-Anesthesia Assessment: - Prior to the procedure, a History and Physical was performed, and patient medications and allergies were reviewed. The patient is competent. The risks and benefits of the procedure and the sedation options and risks were discussed with the patient. All questions were answered and informed consent was obtained. Patient identification and proposed procedure were verified by the physician and the nurse in the pre-procedure area. Mental Status Examination: alert and oriented. Airway Examination: normal oropharyngeal airway and neck mobility. Respiratory Examination: clear to auscultation. CV Examination: normal. Prophylactic Antibiotics: The patient does not require prophylactic antibiotics. Prior Anticoagulants: The patient has taken no previous anticoagulant or antiplatelet agents. ASA Grade Assessment: III - A patient with severe systemic disease. After reviewing the risks and benefits, the patient was deemed in satisfactory condition to undergo the procedure. The anesthesia plan was to use monitored anesthesia care (MAC). Immediately prior to administration of medications, the patient was re-assessed for adequacy to receive sedatives. The heart rate, respiratory rate, oxygen saturations, blood pressure, adequacy of pulmonary ventilation, and response to care were monitored throughout the procedure. The physical status of the patient was re-assessed after the procedure. After obtaining informed consent, the endoscope was passed under direct vision. Throughout the procedure, the patient's blood pressure, pulse, and oxygen saturations were monitored continuously. The Colonoscope was introduced through the anus and advanced to the rectosigmoid junction. The flexible sigmoidoscopy was accomplished without difficulty. The patient tolerated the procedure well. The quality of the bowel preparation was adequate. Findings: Hemorrhoids were found on perianal exam. Inflammation characterized by congestion (edema), erythema, friability, granularity, mucus and shallow ulcerations was found in a continuous and circumferential pattern. No sites were spared. This was graded as Evans Score 3 (severe, with spontaneous bleeding, ulcerations), and when compared to previous examinations, the findings are new. Biopsies were taken with a cold forceps for histology. Verification of patient identification for the specimen was done by the physician and nurse using the patient's name and medical record number. Estimated blood loss: none. Impression: - Hemorrhoids found on perianal exam. - Ulcerative colitis. Inflammation was found in the colon. This was graded as Evans Score 3 (severe disease), new compared to previous examinations. Biopsied. Recommendation: - Return patient to [facility] for [facility] care. - Full liquid diet. - Await pathology results. Recommend medical management of acute severe inflammatory bowel disease Check C difficile status MD Paco Tai MD 10/05/2021 4:50:21 PM This report has been signed electronically. Note Initiated On: 10/05/2021 4:15 PM Number of Addenda: 0 I attest to the content of the Intraoperative Record and orders documented therein, exceptions below {[id number]}
--- NOTE | 2021-10-05 17:00 | Anesthesiology Progress Note ---
Date of Service October 05, 2021 Anesthesia Post Procedure Vital Signs Vital Signs: Temp Pulse Resp BP BP Pulse Ox 10/05/21 16:55 79 16 115/66 95 10/05/21 16:40 77 14 94/53 L 93 10/05/21 16:10 36.9 C 87 16 159/83 H 94 10/05/21 14:18 36.2 C L 84 16 138/85 93 10/05/21 07:17 36.8 C 79 14 156/82 H 94 10/04/21 22:59 37.1 C 80 16 147/79 H 92 10/04/21 18:32 36.9 C 92 H 18 158/84 H 96 Transfer of Care Handoff Completed per policy Notes Mental Status: alert / awake / arousable Patient Amnestic to Procedure: Yes Nausea / Vomiting: adequately controlled Pain: adequately controlled Airway Patency, RR, SpO2: stable & adequate BP & HR: stable & adequate Hydration State: stable & adequate Anesthetic Complications: no major complications apparent and Pt Satisfied with anesthetic care
--- NOTE | 2021-10-05 17:01 | Post Operative Brief Note ---
Immediate Post Op Note v1 Date of Surgery October 05, 2021 Pre & Post Diagnosis Operation Date: 10/05/21 17:30 Pre-Op Diagnosis: rectal bleeding Post-Op Diagnosis: servere colitis I identified the patient and participated in the time-out.: Yes Procedure Operation Date: 10/05/21 17:30 Actual Procedures p Colonoscopy Biopsy Cytology - Paco Oneal MD Surgeon Paco Oneal MD Nurse Head none Estimated Blood Loss 0 Findings Consistent with Post-Op Diagnosis Acute severe confluent proctitis consistent with ulcerative colitis, examination limited to the rectum only
--- NOTE | 2021-10-05 17:03 | Hospitalist Progress Note ---
Date of Service October 05, 2021 Assessment & Plan (1) Acute proctitis: Plan: S/P flex sigmoidoscopy with findings c/w severe confluent proctitis c/w ulcerative colitis. Biopsies taken. - R/O C. difficile - Literature does not support use of antibiotics unless there is a specific pathogen identified - GI started Mesalamine - Consider initiation of IV steroids -- will plan to d/w GI - Continue Zofran PRN - Resume diet - clear liquids and AAT (if ok w/ GI) (2) Upper respiratory infection: Plan: - COVID negative, Flu Negative - With congestion and cough - CTA chest negative - Suspect viral URI - Duonebs every 4 hours while awake and every 2 hours when necessary. - Azithromycin 500mg on admit, d/c with normal CTA/XR - Guaifenesin/Codeine PRN for cough - Follow clinically - No O2 requirement - Add Mucinex - Believe that she would also benefit from a pulmonary perspective with addition of IV steroids to treat acute bronchospasm (3) Lower GI bleed: Plan: See #1 (4) Hypokalemia due to excessive gastrointestinal loss of potassium: Plan: - Supplementation with IV fluids as noted above - Potassium WNL today (5) Dyslipidemia: Plan: - Continue atorvastatin 40 mg daily (6) Gastroesophageal reflux disease: Plan: - Famotidine IV as noted above (7) Hypothyroidism: Plan: - Continue levothyroxine 100 mcg daily (8) Urge incontinence of urine: Plan: Continue mirabegron (9) Depression: Plan: Continue fluoxetine (10) CAD (coronary artery disease): Plan: Stable (11) HTN (hypertension): Plan: - Resume Losartan (12) Obstructive sleep apnea: Plan: - CPAP at bedtime as needed (13) Hypomagnesemia: Plan: - repleted on admission, repeat mag normal Plan: DVT prophylaxis: Previously on heparin 5000 SQ. If some drop in hemoglobin switch to SCDs, evaluation for colitis with chronic anemia as noted above Diet: Clear liq and advance as tolerated (if ok w/ GI) CODE STATUS: Full code AM labs Admission and Anticipated Discharge Date Admission Date: October 02, 2021 Supervising Physician Co-Signing Physician Notes Attending Attestation: Chart reviewed in detail, care plan d/w Donna BRENNAN. I agree w/ the harrell components of her documentation. Flex sig findings noted. Ulcerative colitis limited to rectum top concern. 3 c diff tests since September 21 have been negative. Appreciate GI assistance. Royce Osullivan MD Subjective Noah Zaldivar was seen on rounds this morning. Remains hospitalized for URI sx and ongoing diarrhea w/ hematochezia d/t diverticulitis v colitis. She remains on empiric abx therapy. Gastroenterology following with plans to perform flex sigmoidoscopy today due to ongoing hematochezia/melena. Pt c/o lower abdominal discomfort after defecating, crampy in nature in her LLQ. Also c/o nausea w/o vomiting. Denies fever, chills, chest pain, or dyspnea. +wheezing and dry cough. Continues to pass grossly bloody stools that are loose with mucus. Per RN, about 3 loose BMs overnight and 2 so far this AM. Review of Systems Review of Systems: CONSTITUTIONAL: Denies weight loss/gain, fever and chills, fatigue, malaise, generalized weakness. HEENT: Denies changes in vision and hearing. RESPIRATORY: +wheezing and cough, congestion. Denies SOB. CV: Denies palpitations, CP, lower extremity edema, orthopnea, PND. GI: +abdominal pain, nausea, diarrhea, hematochezia. Denies vomiting. : Denies dysuria and urinary frequency, urgency, hesitancy. MUSCULOSKELETAL: Denies myalgia and joint pain. SKIN: Denies rash and pruritus. NEUROLOGICAL: Denies headache, syncope, focal weakness, numbness, tingling. PSYCHIATRIC: Denies recent changes in mood. Denies anxiety and depression. Physical Exam Physical Exam: GENERAL: 76 yo elderly WF. Pleasant, cooperative. Well-developed, well- nourished. NAD. LUNGS: Good air exchange. No conversational dyspnea. Diffuse expiratory wheezes and rhonchi b/l. CARDIOVASCULAR: Regular rate and rhythm. No M/G/R. No JVD. ABDOMEN: Soft, tender to palp in LLQ. Belly non-distended. Bowel sounds normoac tive x 4 quad. EXTREMITIES: No edema. Non-tender. Peripheral pulses +2/4. PSYCHIATRIC: Cooperative. Appropriate mood and affect. SKIN: Warm, dry, intact. No rashes or lesions. Results & Data Results & Data ([facility]) Vital Signs (Past 12 Hours) Vital Signs Temp Pulse Resp BP BP Pulse Ox 11/15/21 16:55 79 16 115/66 95 10/05/21 16:40 77 14 94/53 L 93 10/05/21 16:10 36.9 C 87 16 159/83 H 94 10/05/21 14:18 36.2 C L 84 16 138/85 93 10/05/21 07:17 36.8 C 79 14 156/82 H 94 Laboratory Results 10/05/21 06:13 10/05/21 06:13 PG Care Time/CCT Total # of Minutes Spent Total Time Spent with Patient: Total time spent is greater than 50% in coordination of care (as documented) at patient's floor/unit and/or counseling patient: Coding Level of Care Code 21942 Subseq Hosp Care Lvl 2 Diagnoses Upper respiratory infection J06.9 Lower GI bleed K92.2 Hypokalemia due to excessive gastrointestinal loss of potassium E87.6 Dyslipidemia E78.5 Gastroesophageal reflux disease K21.9 Hypothyroidism E03.9 Urge incontinence of urine N39.41 Depression F32.9 CAD (coronary artery disease) I25.10 Associated angina: without angina Coronary Disease-Associated Artery/Lesion type: [place] artery [place] vs. transplanted heart: [place] heart HTN (hypertension) I10 Hypertension type: essential hypertension Obstructive sleep apnea G47.33 Hypomagnesemia E83.42 Acute proctitis K62.89 (1) CAD (coronary artery disease) Associated angina: without angina Coronary Disease-Associated Artery/Lesion type: [place] artery [place] vs. transplanted heart: [place] heart Qualified Code(s): I25.10 - Atherosclerotic heart disease of [place] coronary artery without angina pectoris (2) HTN (hypertension) Hypertension type: essential hypertension Qualified Code(s): I10 - Essential (primary) hypertension
[2021-10-05] MEDS: methylPREDNISolone 20 MG in SYRINGE 0 ML IV SCH (17:55)
[2021-10-05] MEDS ORDERED: MESALAMINE 4 GM/60 ML ENEMA PR ONE (18:00)
[2021-10-05] MEDS: MESALAMINE 800 MG TABCR PO SCH (20:22)
[2021-10-06] MEDS: methylPREDNISolone 20 MG in SYRINGE 0 ML IV SCH ×3 (02:03→16:43)
[2021-10-06] MEDS: LEVOTHYROXINE SODIUM 100 MCG TABLET PO SCH (06:18)
[2021-10-06] MEDS: cefTRIAXone SODIUM 2,000 MG in DEXTROSE 5% 50 ML IV SCH (08:00)
[2021-10-06] MEDS: MESALAMINE 800 MG TABCR PO SCH ×3 (08:02→20:03)
[2021-10-06] MEDS: ADVANCED PROBIOTIC 1250 MG CAPSULE PO SCH (08:02)
[2021-10-06] MEDS: MIRABEGRON ER 25 MG TAB PO SCH (08:02)
[2021-10-06] MEDS: metroNIDAZOLE 500 MG TAB PO SCH ×2 (08:02→15:04)
[2021-10-06] MEDS: FLUoxetine HCL 20 MG CAP PO SCH (08:02)
[2021-10-06] MEDS: MULTIVITAMIN TAB PO SCH (08:03)
[2021-10-06] MEDS: allopurinoL 300 MG TAB PO SCH (08:03)
[2021-10-06] MEDS: ATORVASTATIN 40 MG TAB PO SCH (08:04)
[2021-10-06] MEDS: HEPARIN SOD 5,000 UNIT/0.5 ML VIAL SQ SCH ×2 (08:04→20:04)
[2021-10-06] MEDS: LOSARTAN POTASSIUM 25 MG TAB PO SCH (08:05)
[2021-10-06] MEDS: FAMOTIDINE 20 MG in SYRINGE 3 ML IV SCH ×2 (08:07→20:10)
[2021-10-06] MEDS: ALBUT/IPRATROP 3MG/0.5MG NEB 3 ML VIAL NEB SCH ×4 (08:15→20:58)
--- NOTE | 2021-10-06 08:34 | Gastroenterology Progress Note ---
Date of Service October 06, 2021 Assessment & Plan (1) Ulcerative colitis, acute: Plan: Rectal bleeding: Sigmoidoscopy findings from 10/06/2021 consistent with severe ulcerative colitis. The patient has been started on IV Solu-Medrol and p.o. mesalamine. Stool for C. difficile testing was tested x3 in the last 2 weeks all of which were negative. Pathology findings from sigmoidoscopy are pending. Patient has tolerated full liquid diet. May advance diet as tolerated with low roughage/low fiber diet. Patient will need close outpatient follow-up with the GI office which we will arrange. Please refer to supervising physician addendum for further recommendations. Admission and Anticipated Discharge Date Admission Date: October 02, 2021 Supervising Physician Co-Signing Physician Notes Case reviewed with LUIS Hawkins, and I agree with the plan of care and have no additional recommendations. To clarify the note, the severe confluent inflammation was seen in the rectum, and the visible hemorrhoids were uninflamed. Subjective Patient is awake alert and oriented this morning. She is sitting in position of comfort in the bed. Denies any specific complaints this morning. Denies abdominal pain, nausea, vomiting. Reports she continues to have liquid stools with rectal bleeding. Diet was advanced to full liquid which she tolerated well per her report last night. She was started on IV Solu-Medrol 20 mg IV every 8 hours along with mesalamine 800 mg p.o. 3 times daily. She does have a cough today with continued complaints of wheezing. Sigmoidoscopy was performed 10/06/2021 demonstrated hemorrhoids on perianal examination with inflammation characterized by congestion (edema), erythema, friability, granularity, mucus and shallow ulcerations found to continuous and circumferential pattern with no lights spared graded as a Evans score 3 (severe, with spontaneous bleeding, ulcerations. Biopsies were obtained. Findings consistent with severe ulcerative colitis. Review of Systems Review of Systems: All systems reviewed & are unremarkable except as noted in Subjective Physical Exam Respiratory: + cough Auscultation: + rhonchi and + wheezes Gastrointestinal (Abdomen): Inspection/Auscultation: abdomen normal to inspection and normal bowel sounds; abdomen not distended Percussion/Palpation: abdomen soft; abdomen nontender, no guarding and abdomen not rigid Results & Data ([facility]) Vital Signs (Past 12 Hours) Vital Signs Temp Pulse Pulse Resp BP Pulse Ox 10/06/21 08:11 36.5 C 85 16 161/84 H 93 10/05/21 23:30 36.6 C 83 17 152/79 H 93
--- NOTE | 2021-10-06 14:50 | Hospitalist Progress Note ---
Date of Service October 06, 2021 Assessment & Plan (1) Acute proctitis: Plan: S/P flex sigmoidoscopy with findings c/w severe confluent proctitis c/w ulcerative colitis. Biopsies taken. - C. difficile recently tested x3 all negative - Literature does not support use of antibiotics unless there is a specific pathogen identified - GI started Mesalamine & IV Solumedrol - Continue Zofran PRN - Resume diet - clear liquids and AAT (if ok w/ GI) (2) Upper respiratory infection: Plan: - COVID, Flu Negative - With congestion and cough - CTA chest negative - Suspect viral URI - Duonebs every 4 hours while awake and every 2 hours when necessary. - Azithromycin 500mg on admit, d/c with normal CTA/XR - Guaifenesin/Codeine PRN for cough - Follow clinically - No O2 requirement - Add Mucinex and add ICS via neb - Believe that she would also benefit from a pulmonary perspective with addition of IV steroids to treat acute bronchospasm (3) Lower GI bleed: Plan: See #1 (4) Hypokalemia due to excessive gastrointestinal loss of potassium: Plan: - Supplementation with IV fluids as noted above - Potassium WNL today (5) Dyslipidemia: Plan: - Continue atorvastatin 40 mg daily (6) Gastroesophageal reflux disease: Plan: - Famotidine IV as noted above (7) Hypothyroidism: Plan: - Continue levothyroxine 100 mcg daily (8) Urge incontinence of urine: Plan: - Continue mirabegron (9) Depression: Plan: - Continue fluoxetine (10) CAD (coronary artery disease): Plan: - Stable (11) HTN (hypertension): Plan: - Resume Losartan (12) Obstructive sleep apnea: Plan: - CPAP at bedtime as needed (13) Hypomagnesemia: Plan: - repleted on admission, repeat mag normal Plan: DVT prophylaxis: Previously on heparin 5000 SQ. If some drop in hemoglobin switch to SCDs, evaluation for colitis with chronic anemia as noted above Diet: tolerating CODE STATUS: Full code AM labs D/C abx - consult pt/ot. Anticipate home tomorrow. Admission and Anticipated Discharge Date Admission Date: October 02, 2021 Supervising Physician Co-Signing Physician Notes Attending Attestation - Chart reviewed, care plan d/w ANU Rush. I agree w/ the harrell components of her documentation. Suspected severe acute proctitis due to new dx of UC. s/p flex sig by GI -- biopsies pending. Initiated on mesalamine + IV steroids. Await Bx results. Diet advancement as tolerated. Other plans per Ms Rush. Royce Osullivan MD Subjective Ms. Zaldivar was seen on rounds this morning. Pt remains hospitalized for viral URI as well as rectal bleeding. Pt is s/p flex sig performed yesterday by Dr. Oneal with findings of acute severe proctitis c/w ulcerative colitis. She is resting comfortably in bed. Denies any specific complaints this morning. Denies abdominal pain, nausea, vomiting. Reports she continues to have liquid stools with rectal bleeding. Diet was advanced to full liquid which she is tolerating. She was started on IV Solu-Medrol 20 mg IV every 8 hours along with mesalamine 800 mg p.o. 3 times daily yesterday for UC findings. She continues to c/o cough and wheezing. No other issues/concerns verbalized by nursing staff or patient. Review of Systems Review of Systems: CONSTITUTIONAL: Denies weight loss/gain, fever and chills, fatigue, malaise, generalized weakness. HEENT: Denies changes in vision and hearing. RESPIRATORY: +wheezing and cough, congestion. Denies SOB. CV: Denies palpitations, CP, lower extremity edema, orthopnea, PND. GI: +diarrhea, hematochezia. Denies nausea, vomiting, abd pain. : Denies dysuria and urinary frequency, urgency, hesitancy. MUSCULOSKELETAL: Denies myalgia and joint pain. SKIN: Denies rash and pruritus. NEUROLOGICAL: Denies headache, syncope, focal weakness, numbness, tingling. PSYCHIATRIC: Denies recent changes in mood. Denies anxiety and depression. Physical Exam Physical Exam: GENERAL: 76 yo WF. Pleasant, cooperative. Well-developed, well- nourished. NAD. LUNGS: Good air exchange. No conversational dyspnea. Diffuse expiratory wheezes and rhonchi b/l. CARDIOVASCULAR: Regular rate and rhythm. No M/G/R. No JVD. ABDOMEN: Soft, nontender, nondistended. Bowel sounds normoactive x 4 quad. EXTREMITIES: No edema. Non-tender. Peripheral pulses +2/4. PSYCHIATRIC: Cooperative. Appropriate mood and affect. SKIN: Warm, dry, intact. No rashes or lesions. Results & Data Results & Data ([facility]) Vital Signs (Past 12 Hours) Vital Signs Temp Pulse Resp BP Pulse Ox 10/06/21 08:11 36.5 C 85 16 161/84 H 93 Laboratory Results 10/05/21 06:13 10/05/21 06:13 Diagnostic Findings Operation Date: 10/05/21 17:30 Pre-Op Diagnosis: rectal bleeding Post-Op Diagnosis: servere colitis I identified the patient and participated in the time-out.: Yes Procedure Operation Date: 10/05/21 17:30 Actual Procedures p Colonoscopy Biopsy Cytology - Paco Oneal MD Surgeon Paco Oneal MD Ged Preparation Teacher none Estimated Blood Loss 0 Findings Consistent with Post-Op Diagnosis Acute severe confluent proctitis consistent with ulcerative colitis, examination limited to the rectum only PG Care Time/CCT Total # of Minutes Spent Total Time Spent with Patient: Total time spent is greater than 50% in coordination of care (as documented) at patient's floor/unit and/or counseling patient: Coding Level of Care Code 55649 Subseq Hosp Care Lvl 2 Diagnoses Acute proctitis K62.89 Upper respiratory infection J06.9 Lower GI bleed K92.2 Hypokalemia due to excessive gastrointestinal loss of potassium E87.6 Dyslipidemia E78.5 Gastroesophageal reflux disease K21.9 Hypothyroidism E03.9 Urge incontinence of urine N39.41 Depression F32.9 CAD (coronary artery disease) I25.10 Associated angina: without angina Coronary Disease-Associated Artery/Lesion type: [place] artery [place] vs. transplanted heart: [place] heart HTN (hypertension) I10 Hypertension type: essential hypertension Obstructive sleep apnea G47.33 Hypomagnesemia E83.42 (1) CAD (coronary artery disease) Associated angina: without angina Coronary Disease-Associated Artery/Lesion type: [place] artery [place] vs. transplanted heart: [place] heart Qualified Code(s): I25.10 - Atherosclerotic heart disease of [place] coronary artery without angina pectoris (2) HTN (hypertension) Hypertension type: essential hypertension Qualified Code(s): I10 - Essential (primary) hypertension
[2021-10-06] MEDS: BUDESONIDE 0.5 MG/2 ML VIAL (PULMICORT) NEB SCH (20:49)
[2021-10-07] MEDS: methylPREDNISolone 20 MG in SYRINGE 0 ML IV SCH ×3 (01:44→16:44)
[2021-10-07 05:46] LABS: Basophils # (auto) 0.04 K/uL (0-0.2); Basophils % (auto) 0.4 %; Eosinophils # (auto) 0.05 K/uL (0-0.5); Eosinophils % (auto) 0.5 %; Hematocrit (blood only) 34.7 % (37-47); Hemoglobin 11.5 g/dL (12.0-16.0); Immature Granulocytes # (auto) 0.36 K/uL (0.00-0.02); Immature Granulocytes % (auto) 3.9 %; Lymphocytes # (auto) 2.76 K/uL (1.2-3.4); Lymphocytes % (auto) 29.9 %; Mean Corpuscular Hemoglobin 30.1 pg (25-34); Mean Corpuscular Hgb Conc 33.1 g/dL (32-36); Mean Corpuscular Volume 90.8 fL (80-100); Mean Platelet Volume 8.1 fL (7.4-10.4); Monocytes # (auto) 2.04 K/uL (0.11-0.59); Monocytes % (auto) 22.1 %; Neutrophils # (auto) 3.98 K/uL (1.4-6.5); Neutrophils % (auto) 43.2 %; Platelet Count 488 K/uL (130-400); RDW Standard Deviation 53.1 fL (36.4-46.3); Red Blood Count 3.82 M/uL (4.2-5.4); White Blood Count 9.23 K/uL (4.8-10.8)
[2021-10-07] MEDS: LEVOTHYROXINE SODIUM 100 MCG TABLET PO SCH (06:32)
[2021-10-07 06:43] LABS: BUN Creatinine Ratio 12.5 (10-20); Calcium 8.8 mg/dl (8.5-10.1); Est GFR (African American) 87.7 ml/min; Est GFR (Non-African American) 75.7 ml/min; Magnesium 2.2 mg/dl (1.8-2.4); Potassium 3.9 mmol/L (3.5-5.1)
[2021-10-07] MEDS: BUDESONIDE 0.5 MG/2 ML VIAL (PULMICORT) NEB SCH (07:31)
[2021-10-07] MEDS: ALBUT/IPRATROP 3MG/0.5MG NEB 3 ML VIAL NEB SCH ×2 (07:31→12:52)
[2021-10-07] MEDS: FAMOTIDINE 20 MG in SYRINGE 3 ML IV SCH (08:24)
[2021-10-07] MEDS: ADVANCED PROBIOTIC 1250 MG CAPSULE PO SCH (08:25)
[2021-10-07] MEDS: FLUoxetine HCL 20 MG CAP PO SCH (08:25)
[2021-10-07] MEDS: HEPARIN SOD 5,000 UNIT/0.5 ML VIAL SQ SCH ×2 (08:25→20:36)
[2021-10-07] MEDS: ATORVASTATIN 40 MG TAB PO SCH (08:26)
[2021-10-07] MEDS: MIRABEGRON ER 25 MG TAB PO SCH (08:26)
[2021-10-07] MEDS: MULTIVITAMIN TAB PO SCH (08:26)
[2021-10-07] MEDS: allopurinoL 300 MG TAB PO SCH (08:26)
[2021-10-07] MEDS: MESALAMINE 800 MG TABCR PO SCH ×3 (08:27→20:37)
[2021-10-07] MEDS: LOSARTAN POTASSIUM 25 MG TAB PO SCH (08:27)
--- NOTE | 2021-10-07 09:42 | Gastroenterology Progress Note ---
Date of Service October 07, 2021 Assessment & Plan (1) Ulcerative colitis, acute: Plan: Rectal bleeding: Sigmoidoscopy findings from 10/06/2021 consistent with severe ulcerative colitis. The patient has been started on IV Solu-Medrol and p.o. mesalamine. She is need a total of 3 days of IV steroids and then discharged on oral prednisone at 40 mg daily. Plan is 40 mg daily x 2 weeks and GI will discuss plan to taper at follow-up office appointment. Stool for C. difficile testing was tested x3 in the last 2 weeks all of which were negative. Pathology findings from sigmoidoscopy are pending. Patient has tolerated regular low fiber diet. Please refer to supervising physician addendum for further recommendations. Admission and Anticipated Discharge Date Admission Date: October 02, 2021 Supervising Physician Co-Signing Physician Notes I interviewed and examined the patient and reviewed the medical record, with the following observations: Subjective: This is day #2 of IV Prednisolone, there has been improvement in frequency of rectal bleeding episodes and frequency of diarrhea, but she still has episodes of incontinence Physical Examination: Afebrile, soft nontender abdomen Chart Review: rectal biopsies: severe active chronic colitis c/w ulcerative colitis This case was reviewed with the advanced practice provider I agree with the assessment as outlined in this consultation, with the following observations: I agree with the plan of care as outlined in this consultation, with the following changes and/or additions: Recommend adding mesalamine enema qHS. Outpatient prednisone tapering schedule to be reduce by 10mg/day every 2 weeks down to 20 mg/day, then reduce by 5mg/day every 2 weeks to discontinue. Follow up in the office when at 20 mg per day. Subjective Patient is awake alert and oriented this morning. She is sitting in position of comfort in the bed. Denies any specific complaints this morning. Denies abdominal pain, nausea, vomiting. Reports she continues to have liquid stools with rectal bleeding. Diet was advanced regular low fiber which she tolerated well per her report. She does have a cough today with continued complaints of wheezing. Review of Systems Review of Systems: All systems reviewed & are unremarkable except as noted in Subjective Physical Exam Respiratory: + cough Auscultation: + rhonchi and + wheezes Gastrointestinal (Abdomen): Inspection/Auscultation: abdomen normal to inspection and normal bowel sounds; abdomen not distended Percussion/Palpation: abdomen soft; abdomen nontender, no guarding and abdomen not rigid Results & Data ([facility]) Vital Signs (Past 12 Hours) Vital Signs Temp Pulse Resp BP Pulse Ox 10/07/21 06:57 36.7 C 77 16 161/82 H 95 10/06/21 23:37 149/67 H 10/06/21 22:44 37.0 C 82 18 174/93 H 96 Laboratory Results Laboratory Results - last 24 hr 10/07/21 10/07/21 05:15 05:15 WBC 9.23 RBC 3.82 L Hgb 11.5 L Hct 34.7 L MCV 90.8 MCH 30.1 MCHC 33.1 RDW Std Deviation 53.1 H RDW Coeff of Jovani 16.0 H Plt Count 488 H MPV 8.1 Immature Gran % (Auto) 3.9 Neut % (Auto) 43.2 Lymph % (Auto) 29.9 [place] % (Auto) 22.1 Eos % (Auto) 0.5 Baso % (Auto) 0.4 Neut # (Auto) 3.98 Lymph # (Auto) 2.76 [place] # (Auto) 2.04 H Eos # (Auto) 0.05 Baso # (Auto) 0.04 Immature Gran # (Auto) 0.36 H Sodium 133 L Potassium 3.9 Chloride 104 Carbon Dioxide 23 Anion Gap 6.0 BUN 10 D Creatinine 0.76 Est Cr Clr Drug Dosing 70.0 Est GFR ( Amer) 87.7 Est GFR (Non-Af Amer) 75.7 BUN/Creatinine Ratio 12.5 Glucose 125 H Calcium 8.8 Magnesium 2.2
[2021-10-07] MEDS ORDERED: ALBUT/IPRATROP 3MG/0.5MG NEB 3 ML VIAL NEB PRN (11:01)
[2021-10-07] MEDS ORDERED: BUDESONIDE 0.5 MG/2 ML VIAL (PULMICORT) NEB PRN (11:02)
--- NOTE | 2021-10-07 11:15 | Hospitalist Progress Note ---
Date of Service October 07, 2021 Assessment & Plan (1) Acute proctitis: Plan: S/P flex sigmoidoscopy with findings c/w severe confluent proctitis c/w ulcerative colitis. Biopsies taken. - C. difficile recently tested x3 all negative - Literature does not support use of antibiotics unless there is a specific pathogen identified subsequently they were discontinued - GI started Mesalamine & IV Solumedrol, wants her to complete total of 3 days and then transition to PO Prednisone 40mg x 2 weeks - Continue Zofran PRN - Tolerating low fiber diet (2) Upper respiratory infection: Plan: - COVID, Flu Negative - CTA chest negative - Suspect viral URI - Duonebs every 4 hours while awake and every 2 hours when necessary. - Azithromycin 500mg on admit, d/c with normal CTA/XR - Guaifenesin/Codeine PRN for cough - No O2 requirement - Added ICS via neb yesterday - Patient refusing nebs but after some education, is now willing to cooperate and receive the treatments (3) Lower GI bleed: Plan: See #1 (4) Dyslipidemia: Plan: - Continue atorvastatin 40 mg daily (5) Gastroesophageal reflux disease: Plan: - Transition to oral PPI (6) Hypothyroidism: Plan: - Continue levothyroxine 100 mcg daily (7) Urge incontinence of urine: Plan: - Continue mirabegron (8) Depression: Plan: - Continue fluoxetine (9) HTN (hypertension): Plan: - Continue Losartan (10) Obstructive sleep apnea: Plan: - CPAP at bedtime as needed Plan: DVT prophylaxis: Previously on heparin 5000 SQ. If some drop in hemoglobin switch to SCDs, evaluation for colitis with chronic anemia as noted above Diet: tolerating CODE STATUS: Full code AM labs PT/OT Home tomorrow per GI as requiring one more day of IV Solumedrol prior to d/c Admission and Anticipated Discharge Date Admission Date: October 02, 2021 Supervising Physician Co-Signing Physician Notes Attending Attestation - Chart reviewed in detail, care plan d/w ANU Rush. I agree w/ the harrell components of her documentation. Continue steroids for acute proctitis which is flex sig confirmed ulcerative colitis Continue supportive care for URI/wheezing. Royce Zamora was seen on rounds this morning. She is remains in bed and is currently refusing to participate in therapy, both PT and OT. She claims that her arms are "sore and achy." She denies abdominal pain, nausea, vomiting. She claims to have continued loose stools with both dark and bright red blood; however, she has had none so far today. Diet was advanced regular low fiber which she is tolerating. She does have a cough and continued wheezing, but claims that she's "not complaining of this issue." Per RN yesterday, pt has been refusing all nebs since Tuesday. Her reason for refusal is because she "just doesn't feel like doing them." Evidently, she also refused her PM dose of Solumedrol last night per nursing. Review of Systems Review of Systems: CONSTITUTIONAL: Denies weight loss/gain, fever and chills, fatigue, malaise, generalized weakness. HEENT: Denies changes in vision and hearing. RESPIRATORY: +wheezing and cough. Denies SOB. CV: Denies palpitations, CP, lower extremity edema, orthopnea, PND. GI: +diarrhea, hematochezia but none today. Denies nausea, vomiting, abd pain. : Denies dysuria and urinary frequency, urgency, hesitancy. MUSCULOSKELETAL: Denies myalgia and joint pain. SKIN: Denies rash and pruritus. NEUROLOGICAL: Denies headache, syncope, focal weakness, numbness, tingling. PSYCHIATRIC: Denies recent changes in mood. Denies anxiety and depression. Physical Exam Physical Exam: GENERAL: 76 yo WF. 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 WD/WN. NAD. LUNGS: Good air exchange. Diffuse expiratory wheezes and rhonchi b/l. CARDIOVASCULAR: Regular rate and rhythm. No M/G/R. No JVD. ABDOMEN: Soft, nontender, nondistended. Bowel sounds normoactive x 4 quad. EXTREMITIES: No edema. Non-tender. Peripheral pulses +2/4. SKIN: Warm, dry, intact. No rashes or lesions. Results & Data Results & Data ([facility]) Vital Signs (Past 12 Hours) Vital Signs Temp Pulse Resp BP Pulse Ox 10/07/21 06:57 36.7 C 77 16 161/82 H 95 10/06/21 23:37 149/67 H Laboratory Results 10/07/21 05:15 10/07/21 05:15 PG Care Time/CCT Total # of Minutes Spent Total Time Spent with Patient: Total time spent is greater than 50% in coordination of care (as documented) at patient's floor/unit and/or counseling patient: Coding Level of Care Code 84773 Subseq Hosp Care Lvl 2 Diagnoses Acute proctitis K62.89 Upper respiratory infection J06.9 Lower GI bleed K92.2 Dyslipidemia E78.5 Gastroesophageal reflux disease K21.9 Hypothyroidism E03.9 Urge incontinence of urine N39.41 Depression F32.9 HTN (hypertension) I10 Hypertension type: essential hypertension Obstructive sleep apnea G47.33 (1) HTN (hypertension) Hypertension type: essential hypertension Qualified Code(s): I10 - Essential (primary) hypertension
[2021-10-07] MEDS: MESALAMINE 4 GM/60 ML ENEMA PR SCH (20:36)
[2021-10-08] MEDS: methylPREDNISolone 20 MG in SYRINGE 0 ML IV SCH ×3 (00:50→16:57)
[2021-10-08] MEDS: LEVOTHYROXINE SODIUM 100 MCG TABLET PO SCH (06:32)
--- NOTE | 2021-10-08 09:08 | Gastroenterology Progress Note ---
Date of Service October 08, 2021 Assessment & Plan (1) Acute proctitis: Plan: Rectal bleeding: Sigmoidoscopy findings from 10/06/2021 consistent with severe ulcerative colitis. The patient has been started on IV Solu-Medrol and p.o. mesalamine. She is need a total of 3 days of IV steroids and then discharged on oral prednisone at 40 mg daily. Plan is 40 mg daily x 2 weeks and GI will discuss plan to taper at follow-up office appointment. Stool for C. difficile testing was tested x3 in the last 2 weeks all of which were negative. Pathology findings from sigmoidoscopy are pending. Patient has tolerated regular low fiber diet.Lab results pending. Please refer to supervising physician addendum for further recommendations. Admission and Anticipated Discharge Date Admission Date: October 02, 2021 Supervising Physician Co-Signing Physician Notes I have seen and examined the patient. I agree with note above by LUIS Hawkins except as noted below. HPI Pt seems to thinks her stools have improved. She denies abd pain. PE Abdomen pos bs, soft, no guarding nor rebound. A/P UC--Will need 24 hour observed off IV steroids and on oral steroids to make sure her symptoms do not rebound. Subjective The patient is awake alert and oriented this morning. Lying in bed and position of comfort. She states she is feeling overall pretty good. States stools are improving. Reports no formed stools. Bleeding is improving. She does have some episodes of fecal incontinence as noted by nursing documentation. Denies abdominal pain. Denies nausea or vomiting. Tolerating p.o. regular diet meals. Review of documentations reveals that she may have refused at least 1 dose of IV Solu-Medrol and has been refusing nebulizer treatments. She continues to complain of wheezing and has a coarse cough. Review of Systems Review of Systems: All systems reviewed & are unremarkable except as noted in Subjective Physical Exam Respiratory: + cough Auscultation: + rhonchi and + wheezes Gastrointestinal (Abdomen): Inspection/Auscultation: abdomen normal to inspection and normal bowel sounds; abdomen not distended Percussion/Palpation: abdomen soft; abdomen nontender, no guarding and abdomen not rigid Results & Data ([facility]) Vital Signs (Past 12 Hours) Vital Signs Temp Pulse Resp BP Pulse Ox 10/08/21 07:06 36.5 C 87 18 164/99 H 93 10/07/21 21:18 36.6 C 66 16 155/90 H 94
[2021-10-08] MEDS: HEPARIN SOD 5,000 UNIT/0.5 ML VIAL SQ SCH ×2 (09:32→20:24)
[2021-10-08] MEDS: MIRABEGRON ER 25 MG TAB PO SCH (09:32)
[2021-10-08] MEDS: MULTIVITAMIN TAB PO SCH (09:32)
[2021-10-08] MEDS: PANTOprazole 40 MG TAB PO SCH (09:32)
[2021-10-08] MEDS: FLUoxetine HCL 20 MG CAP PO SCH (09:33)
[2021-10-08] MEDS: MESALAMINE 800 MG TABCR PO SCH ×3 (09:33→20:25)
[2021-10-08] MEDS: ATORVASTATIN 40 MG TAB PO SCH (09:33)
[2021-10-08] MEDS: LOSARTAN POTASSIUM 25 MG TAB PO SCH (09:33)
[2021-10-08] MEDS: allopurinoL 300 MG TAB PO SCH (09:33)
[2021-10-08] MEDS: ADVANCED PROBIOTIC 1250 MG CAPSULE PO SCH (09:33)
--- NOTE | 2021-10-08 11:52 | Discharge Summary ---
Date of Service October 08, 2021 Admission HPI Per Admitting Provider The patient is a 76-year-old female with a past medical history including diverticulitis, lower GI bleed, urinary bladder incontinence, gait abnormality, CRYSTAL, mixed aphasia, dyslipidemia, GERD, multiple pulmonary nodules, vitamin D deficiency, depression, hypothyroidism, left MCA stroke, CAD, arthritis and hypertension. The patient was admitted from 09/18-09/24 for acute diverticulitis with lower GI bleed. She was placed on Unasyn IV to admission, and converted to Augmentin upon discharge, which she continues to take at this time. As noted, she had developed a moist cough and cold symptoms over the past few days. Abnormal laboratories: Sodium 132, potassium 3.2, glucose 128, albumin 2.8., Magnesium 1.7. Patient is C. difficile gene negative, COVID-19 negative, and influenza A negative. CT scan abdomen pelvis IV contrast only: Acute diverticulitis of the sigmoid colon without evidence of perforation or abscess formation CT angiography of chest: No evidence of a pulmonary embolism Admission Exam Per Admitting Provider The patient is awake, alert and oriented 3, well developed and well nourished, normocephalic and atraumatic, lying in bed and in no acute distress. HEENT--PERRL, EOMI, mucous membranes and oropharynx dry. Neck--supple. No JVD. No bruits. Thyroid normal, trachea midline, no adenopathy. Heart--normal S1 and S2. No murmurs, rubs or gallops. Lungs--clear bilaterally, no respiratory distress, no accessory muscle use. Abdomen--normal bowel sounds and soft. Mild left lower quadrant tenderness. Nondistended. Extremities--no cyanosis or clubbing. No edema. Dermatologic--normal skin turgor, normal color, no abnormal lymph nodes, no rash. Neurologic--cranial nerves II through XII grossly intact. Rheumatologic--normal range of motion. Psychiatric--normal affect. Principal Diagnosis 1. Rectal bleeding d/t severe UC 2. URI w/ acute bronchospasm Discharge Exam Vital Signs Temp Pulse Resp BP BP Pulse Ox 10/09/21 07:57 77 18 96 10/09/21 07:16 36.5 C 76 14 160/84 H 94 10/08/21 22:50 36.5 C 91 H 16 138/78 94 10/08/21 19:36 90 17 96 10/08/21 15:48 92 H 18 96 10/08/21 14:45 36.7 C 87 16 125/72 92 Intake and Output 10/08/21 10/09/21 10/09/21 22:59 06:59 14:59 Other: # Unmeasured Voids 1 GENERAL: 76 yo WF. Pleasant and cooperative this AM. WD/WN. NAD. LUNGS: Good air exchange. Mostly clear throughout b/l with LLL crackles. CARDIOVASCULAR: Regular rate and rhythm. No M/G/R. No JVD. ABDOMEN: Soft, nontender, nondistended. Bowel sounds normoactive x 4 quad. EXTREMITIES: No edema. Non-tender. Peripheral pulses +2/4. SKIN: Warm, dry, intact. No rashes or lesions. Discharge Data Allergies Allergy/AdvReac Type Severity Reaction Status Date / Time erythromycin base Allergy Intermediate GASTRIC Verified 10/05/21 16:09 INFLAMATION rofecoxib Allergy Intermediate GASTRIC Verified 10/05/21 16:09 INFLAMATION Consultations Gastroenterology - please see Dr. Oneal's consult note for further details Procedures Performed Operation Date: 10/05/21 17:30 Actual Procedures p Colonoscopy Biopsy Cytology - Paco Oneal MD Impression: - Hemorrhoids found on perianal exam. - Ulcerative colitis. Inflammation was found in the colon. This was graded as Evans Score 3 (severe disease), new compared to previous examinations. Biopsied. Recommendation: - [facility] care. - Full liquid diet. - Await pathology results. -Recommend medical management of acute severe inflammatory bowel disease - Check C difficile status Paco Oneal MD Ordered Studies Chest X-Ray 10/02/21 17:18 XR chest 1V portable CLINICAL HISTORY: cough TECHNIQUE: Single frontal radiograph of the chest was obtained. Comparison: Comparison is made to chest one view 05/05/2019 FINDINGS: No lines and tubes are seen. The cardiomediastinal silhouette is normal. The lungs are clear. No evidence of pleural effusion or pneumothorax. IMPRESSION: No acute abnormality and in particular no evidence of pneumonia. ACT 112: Negative or not required by law. Electronically signed by: Jaswant Estes M.D. 10/02/2021 5:43 PM Abdomen/Pelvis CT 10/02/21 17:20 CT abd pelvis IV con only CLINICAL HISTORY: eval for diverticulits TECHNIQUE: Helical axial images of the abdomen and pelvis were obtained and displayed. Automated dose lowering techniques and/or adjustment according to patient size were utilized for this exam. This exam was performed with intravenous contrast. COMPARISON: None available at the time of this dictation. FINDINGS: Lower chest: Cardiomegaly is partially visualized. Liver: Hepatic cyst is seen. Gallbladder and biliary tree: No calcified gallstones. Normal caliber wall. No intra- or extrahepatic biliary ductal dilation. Pancreas: Unremarkable, no focal lesions. Spleen: Unremarkable. Adrenals: Unremarkable. Kidneys and ureters: Bilateral extrarenal pelvis is seen. Subcentimeter hypodensity at the inferior aspect of the right kidney is too small to characterize. Bladder: Unremarkable. Reproductive organs: Unremarkable. Bowel: Numerous diverticula are seen in the sigmoid colon. There is increased vascularity compatible with diverticulitis. No evidence of abscess or perforation. Mild wall thickening is also noted in the ascending colon as well. Lymph nodes Retroperitoneal: Unremarkable. Mesenteric: Unremarkable. Pelvic: Unremarkable. Peritoneum: Normal Vessels: Unremarkable. Abdominal wall: Right fat-containing inguinal hernia. Bones: Degenerative changes in the visualized spine. IMPRESSION: Acute diverticulitis of the sigmoid colon without evidence of perforation or abscess formation. ACT 112: Negative or not required by law. Electronically signed by: Jaswant Estes M.D. 10/02/2021 6:44 PM Chest CTA 10/02/21 18:28 CT angio chest PE protocol CLINICAL HISTORY: PE TECHNIQUE: Multidetector row helical CT of the chest was performed. Coronal and sagittal reformations were obtained. Automated dose lowering techniques and/or adjustment according to patient size were utilized for this exam. Comparison: Comparison is made to CT chest 09/14/2021 FINDINGS: Lungs and pleura: Normal. Heart and pericardium: There is cardiomegaly without evidence of pericardial effusion. Vessels: No evidence of pulmonary embolism. Mediastinum and ambika: Unremarkable. Chest wall and lower neck: Unremarkable. Abdomen: A hiatal hernia is seen. Bones: Degenerative changes in the thoracic spine. IMPRESSION: No evidence of pulmonary embolism. ACT 112: Negative or not required by law. Electronically signed by: Jaswant Estes M.D. 10/02/2021 6:51 PM Hospital Course (1) Acute proctitis: S/P flex sigmoidoscopy with findings c/w severe confluent proctitis c/w ulcerative colitis. Biopsies and are consistent [facility] findings. - C. difficile recently tested x3 all negative - Literature does not support use of antibiotics unless there is a specific pathogen identified subsequently they were discontinued - GI started Mesalamine & IV Solumedrol. Completed 3 days of IV Solumedrol and was transitioned to PO Prednisone this morning. - Taper Prednisone as instructed by GI. - Tolerating low fiber diet - No further bloody stools - loose BM this morning (2) Upper respiratory infection: - COVID, Flu Negative - CTA chest negative - Suspect viral URI - Duonebs every 4 hours while awake and every 2 hours when necessary. - Azithromycin 500mg on admit, d/c with normal CTA/XR - Guaifenesin/Codeine PRN for cough - No O2 requirement - Added ICS via neb yesterday - Patient refused nebs for 3 days during her stay but after some education, was willing to take the treatments - Lungs have improved, wheezes/rhonchi resolved (3) Lower GI bleed: See #1 (4) Dyslipidemia: - Continue atorvastatin 40 mg daily (5) Gastroesophageal reflux disease: - Transition to oral PPI (6) Hypothyroidism: - Continue levothyroxine 100 mcg daily (7) Urge incontinence of urine: - Continue mirabegron (8) Depression: - Continue fluoxetine (9) HTN (hypertension): - Continue Losartan (10) Obstructive sleep apnea: - CPAP at bedtime as needed (11) Leukocytosis: - Absence of fever, tachycardia - Suspect steroid induced from 3 days of IV Solumedrol Diet: tolerating CODE STATUS: Full code PT/OT - will set up for home pt/ot Total Time Total Time Spent Total Time Spent (In Minutes): >30 minutes Discharge Plan Discharge Items Patient Disposition: Home - Home Health Services Reason For Visit: POSSIBLE PNEUMONIA AND ULCERTIULITIS Discharge Diagnosis: 1. Ulcerative colitis 2. Upper respiratory infection Activity: Resume your previous activity Non-emergency contact: Primary Care Provider and Service Center Coordinator Call non-emergency contact if: you have any medication questions and your symptoms worsen Follow-up/Referrals: Meño Johnson MD [Primary Care Provider] - 10/13/21 2:00 pm Paco Oneal MD [Physician] - 10/27/21 8:20 am (within 1 week of discharge) Diet: Low Fiber Addtl Attending Provider Instructions: 1. Take all medications as directed. 2. Take Prednisone daily, with food. 3. Recommend taking over the counter Mucinex twice daily for the next 5-7 days. 4. Use Tessalon perles as needed for cough. 5. Follow up with family doctor within 1 week of discharge. 6. Follow up with Dr. Oneal's office in 2 weeks. Pending Studies at Discharge: No Stand-Alone Forms: [facility], Smoking Cessation Medications and DC Order Prescriptions: New prednisone 10 mg tablet 10 mg PO DAILY Qty: 126 RF: 0 mesalamine 800 mg tablet,delayed release (DR/EC) 800 mg PO TID Qty: 90 RF: 0 Continued fluoxetine 20 mg capsule 20 mg PO DAILY Qty: 90 RF: 3 atorvastatin 40 mg tablet 40 mg PO DAILY Qty: 90 RF: 3 levothyroxine [Synthroid] 100 mcg tablet 100 mcg PO DAILY Qty: 90 RF: 3 Myrbetriq 50 mg tablet extended release 24 hr 50 mg PO DAILY Qty: 90 RF: 3 allopurinol 300 mg tablet 300 mg PO DAILY Qty: 90 RF: 3 cholecalciferol (vitamin D3) [Vitamin D3] 10 mcg (400 unit) tablet 400 unit PO DAILY Qty: 90 RF: 3 multivitamin Tablet 1 tab PO QAM Qty: 90 RF: 3 trospium 20 mg tablet 20 mg PO BID 90 Days Qty: 180 RF: 3 benzonatate 200 mg capsule 200 mg PO TID PRN (Reason: cough) Qty: 30 RF: 0 losartan 25 mg tablet 25 mg PO DAILY Qty: 90 RF: 3 Discontinued amoxicillin-pot clavulanate [Augmentin] 875-125 mg tablet 1 tab PO BID RF: 0 Discharge Orders: Discharge Order (Routine); Ordered 10/09/21 Ordered By: Donna Rush Admission Data Admit Date/Time: 10/02/21 19:46 Attending Provider: Royce Osullivan Admit Provider: Asael Gilmore Primary Care Provider: Meño Johnson Other Providers: Asael Gilmore ; Paco Oneal ; [facility] Other Interventions: Discharge Summary Assessment (RN) Last Done: 10/09/21 15:12 Supervising Physician Co-Signing Physician Notes Attending Attestation and Discharge Note - Pt seen/examined, chart reviewed in detail, care plan d/w ANU Rush. I agree w/ the harrell components of her discharge documentation. 76yo female - recent hospitalization for presumed diverticulitis, d/c home from [facility] on 09/24 with oral augmentin. Presented to the emergency department with a persistence of symptoms of diverticulitis and lower GI bleeding despite compliance with antibiotics. Also with URI symptoms. Following admission she was seen by [facility] and underwent flex sig on 10/[address] Paco Oneal due to her refractory symptoms. This demonstrated severe proctitis c/w ulcerative colitis. She was initiated on IV solumedrol for such. Received supportive care for URI and wheezing. Lower GI symptoms improved with steroid therapy. At discharge she was transitioned to oral prednisone 40mg daily and will remain on such until she sees [facility] in the office. Discharge exam - gen - NAD mouth - MMM heart - RRR, s1 s2, no murmur lungs - mild end-exp wheezing b/l but no increased work of breathing or crackles abd - soft NT ND BS+ ext - no edema Royce Osullivan MD Coding Level of Care Code D/C DAY MANAGEMENT >30 MINS Diagnoses Acute proctitis K62.89 Upper respiratory infection J06.9 Lower GI bleed K92.2 Dyslipidemia E78.5 Gastroesophageal reflux disease K21.9 Hypothyroidism E03.9 Urge incontinence of urine N39.41 Depression F32.9 HTN (hypertension) I10 Hypertension type: essential hypertension Obstructive sleep apnea G47.33 Leukocytosis D72.829
--- NOTE | 2021-10-08 13:28 | Hospitalist Progress Note ---
Date of Service October 08, 2021 Assessment & Plan (1) Acute proctitis: Plan: S/P flex sigmoidoscopy with findings c/w severe confluent proctitis c/w ulcerative colitis. Biopsies and are consistent [facility] findings. - C. difficile recently tested x3 all negative - Literature does not support use of antibiotics unless there is a specific pathogen identified, subsequently they were discontinued - GI started Mesalamine & IV Solumedrol, wants her to complete total of 3 days and then transition to PO Prednisone 40mg x 2 weeks and taper from there - Continue Zofran PRN - Tolerating low fiber diet - Will d/c IV Solumedrol after this afternoon's dose and start on PO Prednisone tomorrow AM - GI prefers to monitor additional day with transition to oral steroids (2) Upper respiratory infection: Plan: - COVID, Flu Negative - CTA chest negative - Suspect viral URI - Duonebs every 4 hours while awake and every 2 hours when necessary. - Azithromycin 500mg on admit, d/c with normal CTA/XR - Guaifenesin/Codeine PRN for cough - No O2 requirement - Patient refusing nebs but after some education, is now willing to cooperate and receive the treatments - Give one Budesonide neb treatment now and change back Duonebs to routine (3) Lower GI bleed: Plan: See #1 (4) Dyslipidemia: Plan: - Continue atorvastatin 40 mg daily (5) Gastroesophageal reflux disease: Plan: - Transition to oral PPI (6) Hypothyroidism: Plan: - Continue levothyroxine 100 mcg daily (7) Urge incontinence of urine: Plan: - Continue mirabegron (8) Depression: Plan: - Continue fluoxetine (9) HTN (hypertension): Plan: - Controlled, continue Losartan (10) Obstructive sleep apnea: Plan: - CPAP at bedtime as needed Plan: DVT prophylaxis: Previously on heparin 5000 SQ. If some drop in hemoglobin switch to SCDs, evaluation for colitis with chronic anemia as noted above Diet: tolerating CODE STATUS: Full code AM labs PT/OT Home tomorrow with tapering course of Prednisone Admission and Anticipated Discharge Date Admission Date: October 02, 2021 Supervising Physician Co-Signing Physician Notes Attending Attestation - Chart reviewed in detail, care plan d/w ANU Rush. I agree w/ the harrell components of her documentation. Continue steroids for acute proctitis which is flex sig confirmed ulcerative colitis -- IV solumedrol today, then po prednisone tomorrow. Continue supportive care for URI/wheezing as noted above. Hopefully d/c home tomorrow. Royce Osullivan MD Subjective oNah Zaldivar was seen on rounds this morning. Pt remains hospitalized for rectal bleeding and URI symptoms. She is s/p flex sig with findings of severe UC. Currently on treatment with Mesalamine orally and IV Solumedrol (today day #3). Pt reports that she feels good today. She had just ambulated with OT out of her hospital bed and into the chair when I entered her room. She claims that she has not been given any neb treatments but that she is agreeable to doing them. She reports no BM yet today and denies passing blood per rectum. Per nursing documentation, she has had episodes of fecal incontinence. Denies abd pain, n/v/d, f/c, headache, or gu symptoms. She still feels that she is wheezing. She is actively coughing but she feels that it has improved as compared to when she was first admitted. She is tolerating her low fiber diet. Review of Systems Review of Systems: CONSTITUTIONAL: Denies weight loss/gain, fever and chills, fatigue, malaise, generalized weakness. HEENT: Denies changes in vision and hearing. RESPIRATORY: +wheezing and cough. Denies SOB. CV: Denies palpitations, CP, lower extremity edema, orthopnea, PND. GI: Denies nausea, vomiting, abd pain, diarrhea. : Denies dysuria and urinary frequency, urgency, hesitancy. MUSCULOSKELETAL: Denies myalgia and joint pain. SKIN: Denies rash and pruritus. NEUROLOGICAL: Denies headache, syncope, focal weakness, numbness, tingling. PSYCHIATRIC: Denies recent changes in mood. Denies anxiety and depression. Physical Exam Physical Exam: GENERAL: 76 yo WF. Pleasant and cooperative this AM. WD/WN. NAD. LUNGS: Good air exchange. Mostly clear throughout bilaterally. CARDIOVASCULAR: Regular rate and rhythm. No M/G/R. No JVD. ABDOMEN: Soft, nontender, nondistended. Bowel sounds normoactive x 4 quad. EXTREMITIES: No edema. Non-tender. Peripheral pulses +2/4. SKIN: Warm, dry, intact. No rashes or lesions. Results & Data Results & Data ([facility]) Vital Signs (Past 12 Hours) Vital Signs Temp Pulse Pulse Resp BP BP Pulse Ox 10/08/21 09:27 92 H 117/75 10/08/21 07:06 36.5 C 87 18 164/99 H 93 Laboratory Results Laboratory Results - last 24 hr 10/08/21 10/08/21 10/09/21 14:07 14:07 06:04 WBC 20.68 H 24.59 H RBC 4.13 L 4.00 L Hgb 12.6 12.1 Hct 37.8 36.6 L MCV 91.5 91.5 MCH 30.5 30.3 MCHC 33.3 33.1 RDW Std Deviation 54.2 H 54.2 H RDW Coeff of Jovani 16.3 H 16.4 H Plt Count 498 H 531 H MPV 8.1 8.5 Immature Gran % (Auto) 9.8 Neut % (Auto) 66.2 Lymph % (Auto) 13.9 Grainger % (Auto) 9.5 Eos % (Auto) 0.0 Baso % (Auto) 0.6 Neut # (Auto) 13.69 H Lymph # (Auto) 2.87 Grainger # (Auto) 1.97 H Eos # (Auto) 0.00 Baso # (Auto) 0.12 Immature Gran # (Auto) 2.03 H Neutrophils % (Manual) 62.9 Lymphocytes % (Manual) 23.0 Monocytes % (Manual) 5.3 Metamyelocytes % (Man) 4.4 Myelocytes % (Man) 3.5 Plasma Cell % (Manual) 0.9 Neutrophils # (Manual) 15.47 H Total Absolute Neuts 15.47 H Lymphocytes # (Manual) 5.66 H Total Abs Lymphocytes 5.88 H Monocytes # (Manual) 1.30 H Metamyelocytes # (Man) 1.08 H Myelocytes # (Manual) 0.86 H Plasma Cell # (Manual) 0.22 H Blood Smear Review Pending Echinocytes 1+ 1+ Sodium 132 L Potassium 4.2 Chloride 101 Carbon Dioxide 22 Anion Gap 9.0 BUN 17 D Creatinine 0.89 Est Cr Clr Drug Dosing 59.7 Est GFR ( Amer) 72.5 Est GFR (Non-Af Amer) 62.5 BUN/Creatinine Ratio 19.4 Glucose 176 H Calcium 8.6 Total Bilirubin AST ALT Alkaline Phosphatase Total Protein Albumin Globulin Albumin/Globulin Ratio 10/09/21 06:04 WBC RBC Hgb Hct MCV MCH MCHC RDW Std Deviation RDW Coeff of Jovani Plt Count MPV Immature Gran % (Auto) Neut % (Auto) Lymph % (Auto) Grainger % (Auto) Eos % (Auto) Baso % (Auto) Neut # (Auto) Lymph # (Auto) Grainger # (Auto) Eos # (Auto) Baso # (Auto) Immature Gran # (Auto) Neutrophils % (Manual) Lymphocytes % (Manual) Monocytes % (Manual) Metamyelocytes % (Man) Myelocytes % (Man) Plasma Cell % (Manual) Neutrophils # (Manual) Total Absolute Neuts Lymphocytes # (Manual) Total Abs Lymphocytes Monocytes # (Manual) Metamyelocytes # (Man) Myelocytes # (Manual) Plasma Cell # (Manual) Blood Smear Review Echinocytes Sodium 133 L Potassium 4.0 Chloride 103 Carbon Dioxide 23 Anion Gap 7.0 BUN 18 Creatinine 0.84 Est Cr Clr Drug Dosing 63.3 Est GFR ( Amer) 77.7 Est GFR (Non-Af Amer) 67.0 BUN/Creatinine Ratio 21.5 H Glucose 117 H Calcium 8.9 Total Bilirubin 0.2 AST 19 ALT 27 Alkaline Phosphatase 79 Total Protein 6.8 Albumin 2.6 L Globulin 4.2 H Albumin/Globulin Ratio 0.6 L PG Care Time/CCT Total # of Minutes Spent Total Time Spent with Patient: Total time spent is greater than 50% in coordination of care (as documented) at patient's floor/unit and/or counseling patient: Coding Level of Care Code 94597 Subseq Hosp Care Lvl 2 Diagnoses Acute proctitis K62.89 Upper respiratory infection J06.9 Lower GI bleed K92.2 Dyslipidemia E78.5 Gastroesophageal reflux disease K21.9 Hypothyroidism E03.9 Urge incontinence of urine N39.41 Depression F32.9 HTN (hypertension) I10 Hypertension type: essential hypertension Obstructive sleep apnea G47.33 (1) HTN (hypertension) Hypertension type: essential hypertension Qualified Code(s): I10 - Essential (primary) hypertension
[2021-10-08] MEDS ORDERED: BUDESONIDE 0.5 MG/2 ML VIAL (PULMICORT) NEB ONE (13:49)
[2021-10-08 14:29] LABS: Hematocrit (blood only) 37.8 % (37-47); Hemoglobin 12.6 g/dL (12.0-16.0); Mean Corpuscular Hemoglobin 30.5 pg (25-34); Mean Corpuscular Hgb Conc 33.3 g/dL (32-36); Mean Corpuscular Volume 91.5 fL (80-100); Mean Platelet Volume 8.1 fL (7.4-10.4); Platelet Count 498 K/uL (130-400); RDW Coefficient of Variation 16.3 % (11.5-14.5); RDW Standard Deviation 54.2 fL (36.4-46.3); Red Blood Count 4.13 M/uL (4.2-5.4); White Blood Count 20.68 K/uL (4.8-10.8)
[2021-10-08 14:43] LABS: BUN Creatinine Ratio 19.4 (10-20); Calcium 8.6 mg/dl (8.5-10.1); Creatinine Clr Calc Pharmacy 59.7 ml/min; Est GFR (African American) 72.5 ml/min; Est GFR (Non-African American) 62.5 ml/min; Potassium 4.2 mmol/L (3.5-5.1)
[2021-10-08 14:58] LABS: Basophils # (auto) 0.12 K/uL (0-0.2); Basophils % (auto) 0.6 %; Echinocytes 1+; Immature Granulocytes # (auto) 2.03 K/uL (0.00-0.02); Immature Granulocytes % (auto) 9.8 %; Lymphocytes # (auto) 2.87 K/uL (1.2-3.4); Lymphocytes % (auto) 13.9 %; Monocytes # (auto) 1.97 K/uL (0.11-0.59); Monocytes % (auto) 9.5 %; Neutrophils # (auto) 13.69 K/uL (1.4-6.5); Neutrophils % (auto) 66.2 %
[2021-10-08] MEDS: ALBUT/IPRATROP 3MG/0.5MG NEB 3 ML VIAL NEB SCH ×2 (15:40→19:36)
[2021-10-08] MEDS: MESALAMINE 4 GM/60 ML ENEMA PR SCH (20:25)
[2021-10-09] MEDS: LEVOTHYROXINE SODIUM 100 MCG TABLET PO SCH (06:08)
[2021-10-09 06:43] LABS: Hematocrit (blood only) 36.6 % (37-47); Hemoglobin 12.1 g/dL (12.0-16.0); Mean Corpuscular Hemoglobin 30.3 pg (25-34); Mean Corpuscular Hgb Conc 33.1 g/dL (32-36); Mean Corpuscular Volume 91.5 fL (80-100); Mean Platelet Volume 8.5 fL (7.4-10.4); Platelet Count 531 K/uL (130-400); RDW Coefficient of Variation 16.4 % (11.5-14.5); RDW Standard Deviation 54.2 fL (36.4-46.3); White Blood Count 24.59 K/uL (4.8-10.8)
[2021-10-09 07:10] LABS: ALC (manual) 5.88 K/uL (1.2-3.4); ANC (manual) 15.47 K/uL (1.4-6.5); Echinocytes 1+; Lymphocytes # (manual) 5.66 K/uL (1.2-3.4); Metamyelocytes # (manual) 1.08 K/uL (0-0); Metamyelocytes % (manual) 4.4 %; Monocytes % (manual) 5.3 %; Myelocytes # (manual) 0.86 K/uL (0-0); Myelocytes % (manual) 3.5 %; Neutrophils # (manual) 15.47 K/uL (1.4-6.5); Neutrophils % (manual) 62.9 %; Plasma Cells # (manual) 0.22 K/uL (0-0); Plasma Cells % (manual) 0.9 %
[2021-10-09 07:13] LABS: Albumin Level 2.6 gm/dl (3.4-5.0); Calcium 8.9 mg/dl (8.5-10.1)
[2021-10-09] MEDS: ALBUT/IPRATROP 3MG/0.5MG NEB 3 ML VIAL NEB SCH ×2 (07:56→11:58)
--- NOTE | 2021-10-09 08:01 | Gastroenterology Progress Note ---
Date of Service October 09, 2021 Assessment & Plan (1) Ulcerative colitis, acute: Plan: UC: Solu-Medrol IV was transition to p.o. prednisone. She seems to be doing well on the p.o. prednisone. Would continue p.o.. mesalamine. Do not recommend continuation of mesalamine enema at discharge. Recommend discharge on prednisone 40 mg daily x 2 weeks and GI will discuss plan to taper at follow-up office appointment. Stool for C. difficile testing negative X3. Pathology findings from sigmoidoscopy Demonstrated severe active chronic proctitis with ulceration, numerous crypt abscesses, and architectural disarray. Negative for granulomas and negative for dysplasia and malignancy. Patient has tolerated regular low fiber diet.Will arrange outpatient follow-up with GI. Please refer to supervising physician addendum for further recommendations. Admission and Anticipated Discharge Date Admission Date: October 02, 2021 Supervising Physician Co-Signing Physician Notes I have seen and examined the patient. I agree with note above by LUIS Hawkins except as noted below. HPI Pt denies abd pain. States bleeding has ceased but still diarrhea. PE alert and oriented in no acute distress A/P UC--apparently being DCed today and can follow in GI office. Subjective The patient is awake alert and oriented this morning. She is lying in bed and position of comfort. She reports she feels okay. She clarifies and says she has a headache. Denies any abdominal pain. Denies nausea or vomiting. States she has been eating well. Denies any blood in her stools. Denies any fecal incontinence. She was transition from IV to p.o. prednisone yesterday. She s tates symptoms have not worsened. Review of Systems Review of Systems: All systems reviewed & are unremarkable except as noted in Subjective Physical Exam Gastrointestinal (Abdomen): Inspection/Auscultation: abdomen normal to inspection and normal bowel sounds; abdomen not distended Percussion/Palpation: abdomen soft; abdomen nontender, no guarding and abdomen not rigid Results & Data ([facility]) Vital Signs (Past 12 Hours) Vital Signs Temp Pulse Resp BP BP Pulse Ox 10/09/21 07:57 77 18 96 10/09/21 07:16 36.5 C 76 14 160/84 H 94 10/08/21 22:50 36.5 C 91 H 16 138/78 94 Laboratory Results Laboratory Results - last 24 hr 11/18/21 11/18/21 11/19/21 14:07 14:07 06:04 WBC 20.68 H 24.59 H RBC 4.13 L 4.00 L Hgb 12.6 12.1 Hct 37.8 36.6 L MCV 91.5 91.5 MCH 30.5 30.3 MCHC 33.3 33.1 RDW Std Deviation 54.2 H 54.2 H RDW Coeff of Jovani 16.3 H 16.4 H Plt Count 498 H 531 H MPV 8.1 8.5 Immature Gran % (Auto) 9.8 Neut % (Auto) 66.2 Lymph % (Auto) 13.9 Ogle % (Auto) 9.5 Eos % (Auto) 0.0 Baso % (Auto) 0.6 Neut # (Auto) 13.69 H Lymph # (Auto) 2.87 Ogle # (Auto) 1.97 H Eos # (Auto) 0.00 Baso # (Auto) 0.12 Immature Gran # (Auto) 2.03 H Neutrophils % (Manual) 62.9 Lymphocytes % (Manual) 23.0 Monocytes % (Manual) 5.3 Metamyelocytes % (Man) 4.4 Myelocytes % (Man) 3.5 Plasma Cell % (Manual) 0.9 Neutrophils # (Manual) 15.47 H Total Absolute Neuts 15.47 H Lymphocytes # (Manual) 5.66 H Total Abs Lymphocytes 5.88 H Monocytes # (Manual) 1.30 H Metamyelocytes # (Man) 1.08 H Myelocytes # (Manual) 0.86 H Plasma Cell # (Manual) 0.22 H Blood Smear Review Pending Echinocytes 1+ 1+ Sodium 132 L Potassium 4.2 Chloride 101 Carbon Dioxide 22 Anion Gap 9.0 BUN 17 D Creatinine 0.89 Est Cr Clr Drug Dosing 59.7 Est GFR ( Amer) 72.5 Est GFR (Non-Af Amer) 62.5 BUN/Creatinine Ratio 19.4 Glucose 176 H Calcium 8.6 Total Bilirubin AST ALT Alkaline Phosphatase Total Protein Albumin Globulin Albumin/Globulin Ratio 10/09/21 06:04 WBC RBC Hgb Hct MCV MCH MCHC RDW Std Deviation RDW Coeff of Jovani Plt Count MPV Immature Gran % (Auto) Neut % (Auto) Lymph % (Auto) Ogle % (Auto) Eos % (Auto) Baso % (Auto) Neut # (Auto) Lymph # (Auto) Ogle # (Auto) Eos # (Auto) Baso # (Auto) Immature Gran # (Auto) Neutrophils % (Manual) Lymphocytes % (Manual) Monocytes % (Manual) Metamyelocytes % (Man) Myelocytes % (Man) Plasma Cell % (Manual) Neutrophils # (Manual) Total Absolute Neuts Lymphocytes # (Manual) Total Abs Lymphocytes Monocytes # (Manual) Metamyelocytes # (Man) Myelocytes # (Manual) Plasma Cell # (Manual) Blood Smear Review Echinocytes Sodium 133 L Potassium 4.0 Chloride 103 Carbon Dioxide 23 Anion Gap 7.0 BUN 18 Creatinine 0.84 Est Cr Clr Drug Dosing 63.3 Est GFR ( Amer) 77.7 Est GFR (Non-Af Amer) 67.0 BUN/Creatinine Ratio 21.5 H Glucose 117 H Calcium 8.9 Total Bilirubin 0.2 AST 19 ALT 27 Alkaline Phosphatase 79 Total Protein 6.8 Albumin 2.6 L Globulin 4.2 H Albumin/Globulin Ratio 0.6 L
[2021-10-09 08:16] LABS: BUN Creatinine Ratio 21.5 (10-20); Creatinine Clr Calc Pharmacy 63.3 ml/min; Est GFR (African American) 77.7 ml/min
[2021-10-09 08:19] LABS: Albumin Globulin Ratio 0.6 (0.9-2); Bilirubin,Total 0.2 mg/dl (0.2-1); Globulin 4.2 gm/dl (2.5-4.0); Total Protein 6.8 gm/dl (6.4-8.2)
[2021-10-09] MEDS: LOSARTAN POTASSIUM 25 MG TAB PO SCH (08:36)
[2021-10-09] MEDS: MESALAMINE 800 MG TABCR PO SCH ×2 (08:36→13:21)
[2021-10-09] MEDS: PANTOprazole 40 MG TAB PO SCH (08:36)
[2021-10-09] MEDS: MIRABEGRON ER 25 MG TAB PO SCH (08:36)
[2021-10-09] MEDS: MULTIVITAMIN TAB PO SCH (08:36)
[2021-10-09] MEDS: ATORVASTATIN 40 MG TAB PO SCH (08:37)
[2021-10-09] MEDS: HEPARIN SOD 5,000 UNIT/0.5 ML VIAL SQ SCH (08:37)
[2021-10-09] MEDS: ADVANCED PROBIOTIC 1250 MG CAPSULE PO SCH (08:37)
[2021-10-09] MEDS: allopurinoL 300 MG TAB PO SCH (08:37)
[2021-10-09] MEDS: FLUoxetine HCL 20 MG CAP PO SCH (08:37)
[2021-10-09] MEDS ORDERED: predniSONE 20 MG TAB PO SCH (09:00)
[2021-10-09] MEDS ORDERED: ALBUT/IPRATROP 3MG/0.5MG NEB 3 ML VIAL NEB PRN (11:57)
== END 2021-10-09 19:10 | disposition home health service (06) | DRG 387 ==
LOC: ED 13:38 → EDINP 19:46 → SUATTDRO 19:46 → 2N 21:21 → 3N 10-04 18:29
DX: G47.33 Obstructive sleep apnea (adult) (pediatric); Z87.891 Personal history of nicotine dependence; J06.9 Acute upper respiratory infection, unspecified; F32.A Depression, unspecified; I69.328 Other speech and language deficits following cerebral infarction; Z83.3 Family history of diabetes mellitus; I25.10 Atherosclerotic heart disease of native coronary artery without angina pectoris; E03.9 Hypothyroidism, unspecified; I10 Essential (primary) hypertension; Z88.1 Allergy status to other antibiotic agents; E78.5 Hyperlipidemia, unspecified; E87.6 Hypokalemia; K51.911 Ulcerative colitis, unspecified with rectal bleeding; K64.9 Unspecified hemorrhoids; R05.9 Cough, unspecified; N39.41 Urge incontinence; J98.01 Acute bronchospasm; Z88.8 Allergy status to other drugs, medicaments and biological substances; E83.42 Hypomagnesemia